=== PATIENT | female | born 1960 | race Caucasian/White ===

== ENCOUNTER → 2017-12-09 07:25 | Outpatient (CLI) | payer OTHER, SELFPAY ==
--- NOTE | 2017-12-09 | DI.US.S_ITS ---
PROCEDURE: US ABDOMEN COMPLETE INDICATIONS: ABDOMINAL PAIN; ELEVATED LFT'S TECHNIQUE: Real-time scanning was performed of the abdominal and retroperitoneal organs, with image documentation. COMPARISON: None. FINDINGS: Liver: Liver is diffusely increased in echogenicity. No focal hepatic abnormalities identified. Normal hepatic size. Gallbladder: 2.6 cm mobile gallstone. No gallbladder wall thickening or pericholecystic fluid. Biliary ducts: Intrahepatic bile ducts are non-dilated. Extrahepatic bile duct caliber measures 7.3 mm. Normal is 6-7 mm or less in diameter, or 10 mm or less post-cholecystectomy. Pancreas: Visualized portions of the pancreas are sonographically normal. Spleen: Spleen is normal in size and homogeneous in echotexture. Kidneys: Kidneys are normal in size and echotexture. Right kidney measures 11.7 cm long; left kidney measures 11.7 cm long. No hydronephrosis or nephrolithiasis. No solid masses. Left renal simple cyst present, largest measure 1.8 cm. Aorta: Visualized aorta is normal in caliber at less than 3 cm. Iliacs: Proximal common iliac arteries are normal in caliber at less than 2.5 cm. IVC: Intrahepatic inferior vena cava is patent. Miscellaneous: No free abdominal fluid. IMPRESSION: 1. Increased hepatic echogenicity noted possibly related to hepatic steatosis but other sources of hepatocellular disease cannot be excluded. Recommend clinical correlation. 2. Cholelithiasis without acute cholecystitis. 3. Simple left renal cysts. Dictated by: Charly JEAN Interpreted: Juan Pineda MD on 12/09/2017 at 9:32 Approved by: Tiffany Mann MD, PhD on 12/09/2017 at 10:52
== END ==
PROVIDERS: Visit Provider Internal Medicine
DX: K80.20 Calculus of gallbladder without cholecystitis without obstruction (principal); N28.1 Cyst of kidney, acquired; R10.9 Unspecified abdominal pain; R79.89 Other specified abnormal findings of blood chemistry
CPT/HCPCS: 76700

== ENCOUNTER → 2017-12-30 08:52 | Outpatient (CLI) | payer OTHER, SELFPAY ==
--- NOTE | 2017-12-30 | DI.NM.S_ITS ---
PROCEDURE: NM HIDA WITH CCK PHARMACEUTICAL: 5.4 mCi Tc-99m mebrofenin IV; 2.1 mcg CCK IV. INDICATIONS: Chronic cholecystitis TECHNIQUE: Following intravenous administration of Tc-99m mebrofenin, sequential anterior abdominal images were obtained. To evaluate the contractile response of the gallbladder in response to Cholecystokinin (CCK), sincalide (0.02 ?g/kg) was administered by slow intravenous infusion approximately 60 minutes after the administration of the radiopharmaceutical. Sequential imaging was continued for 30 minutes after the start of CCK infusion. Gallbladder ejection fraction was calculated. COMPARISON: None. FINDINGS: Biliary scan: There is normal tracer uptake and excretion by the liver. There is normal visualization of the intrahepatic ducts, common bile duct, and gallbladder. There is normal tracer transit into the duodenum. CCK stimulation: There is abnormally low contractile response of the gallbladder to CCK infusion. The calculated gallbladder ejection fraction is 18%; normal values are above 35%. It has been shown that any patient abdominal pain after CCK administration is related to the rate of CCK injection, rather than to any underlying gallbladder disease (Clinical Nuclear Medicine 2012; 37: 63-70. Journal of Nuclear Medicine 2014; 55: 1-9). IMPRESSION: Normal hepatocyte uptake and subsequent excretion of the radioisotope into the bile ducts. Patency of the cystic duct is documented. There is, however, an abnormally reduced gallbladder ejection fraction of only 18% with the lower limits of normal above 35%. Dictated by: Onesimo Kebede M.D. on 12/30/2017 at 13:44 Approved by: Onesimo Kebede M.D. on 12/30/2017 at 13:46
== END ==
PROVIDERS: PCP Internal Medicine; Visit Provider Internal Medicine
DX: K81.1 Chronic cholecystitis (principal)
CPT/HCPCS: 78227; A9537; J2805

== ENCOUNTER → 2018-01-02 09:00 | Outpatient (CLI) | payer OTHER, SELFPAY ==
--- NOTE | 2018-01-02 | DI.MG.S_ITS ---
BILATERAL DIGITAL SCREENING MAMMOGRAM 3D/2D WITH CAD: 01/02/2018 CLINICAL: Routine screening. [facility] There are scattered fibroglandular elements in both breasts. Current study was also evaluated with a Computer Aided Detection (CAD) system. There is an oval mass in the right breast upper outer aspect posterior depth. No other significant masses, calcifications, or other findings are seen in either breast. IMPRESSION: INCOMPLETE: NEEDS ADDITIONAL IMAGING EVALUATION The oval mass in the right breast is indeterminate. Additional views with possible ultrasound are recommended. This exam was interpreted at Station ID: [id number]. NOTE: For mammograms, a report in lay terms will be sent to the patient. Approximately 15% of breast malignancies will not be visualized mammographically. In the management of a palpable breast mass, a negative mammogram must not discourage biopsy of a clinically suspicious lesion. Electronically Signed By: Abiodun condno/margot:01/05/2018 02:12:36 letter sent: Additional Imaging Needed ACR BI-RADS Category 0: Incomplete 3340F
== END ==
PROVIDERS: PCP Internal Medicine; Visit Provider Internal Medicine
DX: Z12.31 Encounter for screening mammogram for malignant neoplasm of breast (principal)
CPT/HCPCS: 77063; 77067

== ENCOUNTER → 2018-01-28 12:47 | Outpatient (CLI) | payer OTHER, SELFPAY ==
--- NOTE | 2018-01-28 | DI.US.S_ITS ---
LIMITED ULTRASOUND OF RIGHT BREAST: 01/28/2018 CLINICAL: Focal right breast pain. Patient returns for additional imaging over a suspected mass in the right breast. Comparison is made to exams dated: 01/28/2018 mammogram, 01/02/2018 mammogram, and 03/02/2013 mammogram - [facility]. Real-time and Doppler ultrasound of the right breast 6 o'clock and 9-12 o'clock regions were performed. Lino scale images of the real-time examination were reviewed. Targeted ultrasound was performed in the region of the patient's reported focal pain and itching in the inferior right breast at 6 o'clock position as indicated by the patient. No underlying breast mass or abnormality is identified. There is a 1.2 x 1.0 x 1.0 cm oval indistinct hypoechoic probable cyst with increased through transmission and no vascularity on Doppler ultrasound located in the right breast at 10 o'clock 8 cm from the nipple. The cyst is poorly seen due to overlying shadowing artifact secondary to the posterior depth location of this probable cyst. There are low level internal echogenic foci within the probable cyst. This appears to correlate with the finding seen on mammography. IMPRESSION: PROBABLY BENIGN 1) No ultrasound findings to explain patient's reported focal pain and itching in the inferior right breast at 6 o'clock position. Recommend clinical follow-up for further evaluation and management of the patient's reported symptoms. 2) There is a 1.2 cm probable complicated cyst in the right breast at 10 o'clock 8 cm from the nipple, which is probably benign. A follow-up mammogram and an ultrasound in 6 months is recommended to demonstrate stability. The patient is advised to monitor her breasts and to return sooner for re-evaluation should she feel anything grow or change. This exam was interpreted at Station ID: [id number]. Electronically Signed By: Abiodun Forrest M.D. ecl/:01/28/2018 16:19:25 letter sent: Followup Recommended Ultrasound BI-RADS: 3 Probably benign
--- NOTE | 2018-01-28 | DI.MG.S_ITS ---
UNILATERAL RIGHT DIGITAL DIAGNOSTIC MAMMOGRAM 3D/2D WITH ADDITIONAL VIEWS: 01/28/2018 CLINICAL: Additional evaluation requested from prior study. Comparison is made to exams dated: 01/02/2018 mammogram and 03/02/2013 mammogram - [facility]. There are scattered fibroglandular elements in right breast. There is a square marker overlying the skin of the inferior right breast at the site of the patient's reported focal pain and itching at the 6 o'clock position middle to posterior depth. There is no underlying mammographic abnormality. Previously noted oval mass in the right breast upper outer aspect posterior depth seen on comparison screening mammogram persists with additional views. The mass is oval, circumscribed, and measures 1.3 cm in greatest diameter. No other significant masses, calcifications, or other findings are seen in the breast. IMPRESSION: INCOMPLETE: NEEDS ADDITIONAL IMAGING EVALUATION 1) No mammographic abnormality to correlate with the site of the patient's reported focal breast pain and itching in the inferior right breast. Targeted diagnostic ultrasound recommended for further evaluation, which will be performed immediately following this exam. 2) Previously noted oval mass in the right breast upper outer aspect posterior depth seen on comparison screening mammogram persists with additional views. Targeted ultrasound recommended, which will be performed immediately following this exam. This exam was interpreted at Station ID: [id number]. NOTE: For mammograms, a report in lay terms will be sent to the patient. Approximately 15% of breast malignancies will not be visualized mammographically. In the management of a palpable breast mass, a negative mammogram must not discourage biopsy of a clinically suspicious lesion. Electronically Signed By: Abiodun Forrest M.D. ecl/:01/28/2018 13:32:54 letter sent: Additional Imaging Needed ACR BI-RADS Category 0: Incomplete 3340F
== END ==
PROVIDERS: PCP Internal Medicine; Visit Provider Internal Medicine
DX: R92.8 Other abnormal and inconclusive findings on diagnostic imaging of breast (principal); N63.11 Unspecified lump in the right breast, upper outer quadrant; N64.4 Mastodynia
CPT/HCPCS: 76642; 77065; G0279

== ENCOUNTER 2018-02-12 09:47 | Day surgery (SDC) | payer OTHER, SELFPAY ==
[2018-01-29 07:48] VITALS: BMI 40.2
[2018-02-12] VITALS (9 sets, daily range): BP systolic 124–163; BP diastolic 72–89; PULSE 90–98; RESP 14–20; TEMP 36.2–37.1; O2SAT 90–96; BMI 39.7
--- NOTE | 2018-02-12 | PATH_ITS ---
[facility] Accession Number: [id number] . 01 Material submitted: . PART A: GALLBLADDER PART B: LIVER BIOPSY . 02 Diagnosis: A. Gallbladder, Cholecystectomy: Chronic cholecystitis with cholelithiasis. 1 benign cystic duct lymph node identified. No evidence of dysplasia or malignancy. . B. Liver, Biopsy: Moderate steatosis, predominantly macrovesicular (approximately 50%) No significant fibrosis, confirmed by trichrome stain. Mild iron deposition in hepatocytes and kupffer cells (grade 1 of 4). No abnormal PAS positive diastase resistant globules in hepatocytes. No evidence of hepatitis or neoplasm. [facility]/02/18/2018 . 02 Comment: B. Clinical correlation is recommended to determine if the liver changes are due to metabolic syndrome, alcohol, or medications. . As part of routine fiberglass quality technician, Dr. Fink also reviewed part B and agrees with the diagnosis. . 02 Electronically signed: . Roseanna Mckeon MD, Pathologist NPI- [id number] . 01 Gross description: . (A) Received in formalin, labeled gallbladder, is an intact gallbladder (length-7.8 cm, diameter-2.6 cm) with torre-pink smooth and shiny serosa and a patent cystic duct. A lymph node (0.8 x 0.7 x 0.5 cm) is identified. The lumen contains green watery bile and one green oblong hard smooth calculus (2.8 x 2.0 x 1.8 cm) with an hermes crystalline cut surface. The mucosa is montgomery-green smooth and flat. The wall is up to 0.1 cm thick. No nodules, masses or lesions are identified. Section code: (A1) cystic duct resection margin and two serial sections from the body; (A2) two longitudinal sections from the fundus; (A3) one bisected lymph node. (B) Received in formalin, labeled liver biopsy, is a piece of montgomery firm hepatic tissue (1.3 x 1.2 x 0.3 cm). The resection margin is inked black. Perpendicularly sectioned and entirely submitted in cassette B1. ([id number]) /[facility] . 02 Microscopic: . A. See diagnosis. B. Fragments of liver parenchyma show moderate steatosis, predominantly macrovesicular (approximately 50%), in a zone 3 distribution. There is minimal lobular lymphocytic inflammation and no definite balloning hepatocytes are identified. Rare Sabrina-Denk Bodies are present. The trichrome stain highlights liver capsule as well as mild portal-central fibrosis; likely due to sampling near capsule. No well defined perivenular/pericellular fibrosis is seen. Mild iron deposition is present in hepatocytes and Kupffer cells. No abnormal PAS positive diastase resistant globules are present in hepatocytes. There is no evidence of a neoplastic cell population. The control stains all showed appropriate reactivity. . 02 Pathologist provided ICD-10: K80.60, K76.0 . 02 CPT . 025722, 099354, 786719, [id number], [id number] Performed at: [address] [facility] [address] [facility], [place], [place] [id number] MD Chadd Burch MD Phone: [phone] Performed at: 02 [facility] [id number] [place] [id number] MD Roseanna Mckeon MD Phone: [phone]
--- NOTE | 2018-02-12 10:35 | PM.PREOP ---
Pre-operative Note Interval Note Pre-op Check: Yes History & Physical Reviewed by Physician and Yes Exam Performed Changes: No
[2018-02-12] MEDS: LACTATED RINGERS 1,000 ML 100 ML IV (10:45)
[2018-02-12] MEDS: CEFOTETAN 2 GM/50 ML PIGGYBACK IV (11:07)
--- NOTE | 2018-02-12 11:32 | SUR.OPER ---
Supine on padded OR bed, head on pillow, arms secured on padded arm boards at <90 degrees abduction, legs uncrossed, safety belt at thigh, tape over blanket over lower legs.
[2018-02-12] MEDS: LACTATED RINGERS 1,000 ML 42 ML IV (11:47)
[2018-02-12] MEDS: BUPIVACAINE 0.5% (PF) VIAL 30 ML INJ (11:49)
--- NOTE | 2018-02-12 13:01 | P.OP_ITS ---
Operative Date/Time/Diagnoses Date of procedure: 02/12/18 Time of procedure: 13:00 Pre-op diagnosis: Cholelithiasis cholecystitis Post-op diagnosis: same (Chronic cholecystitis with cholelithiasis) Procedure & Clinicians Procedure: Laparoscopic cholecystectomy. Liver biopsy for indicated reasons during the operation. Same procedure as scheduled: Yes Indications: Symptomatic gallbladder disease Surgeon: Freedom Barnes Click Yes if Unassisted: Yes Anesthesia Type: General Operative Notes Findings: Chronically inflamed gallbladder encased in fat. Finely nodular liver suspicious for early cirrhosis versus fatty infiltration Closure Type: primary Specimen(s): other (Gallbladder and stone) Implants & Drains: None Estimated Blood Loss (mL): 20 Blood products transfused: none Procedure in detail: The patient was placed supine on the operating room table and underwent general endotracheal anesthesia. She was prepped and draped in the usual fashion. Local anesthetic was infiltrated above the umbilicus and an incision made in the infraumbilical fold. It was carried down to the level of the peritoneum which was opened under direct vision. Stay sutures of 0 Vicryl were placed in the fascia. An Savage cannula was inserted and the abdomen was insufflated. The patient was repositioned and local anesthetic was infiltrated again beneath the right costal margin and 3 small 5 mm ports were inserted. The gallbladder was identified and grasped and elevated. The gallbladder was mostly in tested with in fat. I dissected bluntly away from the end of the gallbladder and identified a ductal structure singular nature going directly to the gallbladder. Three clips were placed across it was divided leaving 2 in the patient. A vascular appearing structure was handled in a similar way. As I began to dissect the gallbladder out of the bit of of the liver I encountered another vascular structure which I had to place clips on before dividing. The gallbladder is then dissected from its bed in the liver. This was a very tedious process due to the large size of the liver and out the fact that it did not have much give. Ultimately the gallbladder is detached and removed in a bag. The right upper quadrant was irrigated and suctioned free of fluid. There is no ongoing bleeding at the gallbladder fossa. I took a biopsy of the liver with my laparoscopic Mets and submitted it. Cautery was used to control the bleeding. The right upper quadrant irrigated suctioned free of fluid. There did not appear to be any bile leak or ongoing bleeding. The ports were all removed. The stay sutures at the umbilicus were tied an additional 2 0 PDS was placed between the of the other to stitches there. The skin is closed in all areas with interrupted or running for 0 pop-off Vicryl sutures and Steri- Strips. Band-aids were applied the patient was awakened and taken to recovery room good condition. Complications: none Condition: stable Disposition: PACU Plan for aftercare: Follow-up in the office
[2018-02-12] MEDS: ONDANSETRON 4 MG/2 ML INJ IV (13:10)
[2018-02-12] MEDS: fentaNYL 100 MCG/2 ML INJ 50 MCG IV ×2 (13:20→13:35)
[2018-02-12] MEDS: HYDROCODONE/ACET 5/325 TABLET 2 TAB PO (13:43)
[2018-02-12] MEDS: METOCLOPRAMIDE 10 MG/2 ML INJ IV (13:47)
[2020-02-24 11:51] VITALS: BMI 40.8
== END 2018-02-12 14:15 | disposition home or self-care (01) ==
PROVIDERS: PCP Internal Medicine; Visit Provider Specialist
PROC: 0FT44ZZ Resection of Gallbladder, Percutaneous Endoscopic Approach (ICD-10-PCS; CPT 47562; principal; 2018-02-12 11:15)
DX: K80.10 Calculus of gallbladder with chronic cholecystitis without obstruction (principal); G47.33 Obstructive sleep apnea (adult) (pediatric); E11.9 Type 2 diabetes mellitus without complications; J45.998 Other asthma; Z79.4 Long term (current) use of insulin; K76.0 Fatty (change of) liver, not elsewhere classified
CPT/HCPCS: 47379; 47562; J0330; J2405; J2704; J2765; J3010

== ENCOUNTER → 2018-02-25 15:40 | Outpatient (CLI) | payer OTHER, SELFPAY ==
--- NOTE | 2018-02-25 15:42 | DI.RAD.S_ITS ---
PROCEDURE: XR KNEE RT 3V INDICATIONS: RIGHT KNEE PAIN TECHNIQUE: 3 views of the knee were acquired. COMPARISON: None. FINDINGS: Bones: No fractures or dislocations. No suspicious bony lesions. Scattered degenerative spurring. Severe narrowing of the lateral joint space. Soft tissues: Small joint effusion. No suspicious soft tissue calcifications. IMPRESSION: Severe right knee joint degeneration. Small joint effusion. Dictated by: Errol Stuart M.D. on 02/25/2018 at 17:54 Approved by: Errol Stuart M.D. on 02/25/2018 at 17:55
--- NOTE | 2018-02-25 15:42 | DI.RAD.S_ITS ---
PROCEDURE: XR KNEE LT 3V INDICATIONS: KNEE PAIN TECHNIQUE: 3 -views of the knee were acquired. COMPARISON: None. FINDINGS: Bones: No fractures or dislocations. No suspicious bony lesions. Mild lateral patellar tilt. Diffuse degenerative spurring. Mild narrowing of the medial joint space. Soft tissues: No joint effusion. No suspicious soft tissue calcifications. IMPRESSION: Mild left knee joint degeneration. Dictated by: Errol Stuart M.D. on 02/25/2018 at 17:56 Approved by: Errol Stuart M.D. on 02/25/2018 at 17:57
== END ==
PROVIDERS: PCP Internal Medicine; Visit Provider Internal Medicine
DX: M25.561 Pain in right knee (principal); M25.562 Pain in left knee; M17.0 Bilateral primary osteoarthritis of knee; M25.461 Effusion, right knee
CPT/HCPCS: 73562

== ENCOUNTER 2018-07-23 12:48 | Day surgery (SDC) | payer OTHER, SELFPAY ==
[2018-07-17 13:18] VITALS: BMI 40.1
[2018-07-23] VITALS (9 sets, daily range): BP systolic 99–146; BP diastolic 48–87; PULSE 77–93; RESP 10–15; TEMP 36.4–36.7; O2SAT 91–99; BMI 40.1
[2018-07-23] MEDS: LACTATED RINGERS 1,000 ML 42 ML IV (13:30)
--- NOTE | 2018-07-23 15:24 | DI.RAD.S_ITS ---
PROCEDURE: XR KNEE RT 1TO2V INDICATIONS: postoperative right knee TECHNIQUE: 2 view(s) of the knee acquired. COMPARISON: [facility], CR, XR KNEE RT 3V, 02/25/2018, 15:51. FINDINGS: Bones: Patient is status post knee joint arthroplasty. Hardware components are in expected positions. Visualized bony structures are intact. Soft tissues: Overlying postoperative changes are noted. IMPRESSION: Expected postoperative appearance Dictated by: Errol Stuart M.D. on 07/23/2018 at 19:23 Approved by: Errol Stuart M.D. on 07/23/2018 at 19:24
[2018-07-23] MEDS: ACETAMINOPHEN 325 MG TABLET 975 MG PO (15:30)
[2018-07-23] MEDS: PREGABALIN 75 MG CAPSULE PO (15:30)
[2018-07-23] MEDS: DEXTROSE 5% WATER 1,000 ML 500 ML IV (15:46)
--- NOTE | 2018-07-23 15:46 | SUR.PREOP ---
Addendum entered by Kathya Baugh R.N. 07/23/18 15:49: Patient is awake, oriented, visiting with friend. Stated that Maybe my headache will go away with the glucose. Skin doesn't appear diaphoretic. Resp unlabored. Original Note: Glucose 76, patient states that she is beginning to feel a little diaphoretic and light-headed; requested sugar. Dr. Betts informed, Order obtained, IV fluids hung per order.
--- NOTE | 2018-07-23 17:12 | SUR.PREOP ---
1700 Patient states that she feels much better. Glucose 144; Dr. Betts informed.
--- NOTE | 2018-07-23 17:18 | PM.PREOP ---
Pre-operative Note Interval Note History & Physical reviewed/Exam performed by Physician: Yes Changes to H&P: No
--- NOTE | 2018-07-23 17:23 | SUR.PREOP ---
1630 500cc bolus of D5 given ,pt feeling better, headache better, pt waiting with friend for surgery
[2018-07-23] MEDS: CEFAZOLIN 2 GM/100 ML FROZ.PIGGY IV (17:25)
--- NOTE | 2018-07-23 17:51 | SUR.OPER ---
Supine on padded OR bed. Pillow under head, arms secured on padded armboards <90 degree abduction. Safety belt across torso. Non-operative leg secured with tape over blanket over lower leg. Operative leg secured in DeMayo/Quentin positioner. Foam padded brace at thigh of operative leg.
[2018-07-23] MEDS: BUPIVACAINE 0.5% W/ EPI (PF) 20 ML, BUPIVACAINE LIPOSOME 266 MG, SODIUM CHLORIDE 0.9% 2... INJ (17:56)
[2018-07-23] MEDS: LIDOCAINE 1% W/EPI INJ 20 ML INJ (17:57)
[2018-07-23] MEDS: BUPIVACAINE 0.5% W/ EPI (PF) 10 ML, TRANEXAMIC ACID 1,000 MG, SODIUM CHLORIDE 0.9% 20 ML INJ (17:58)
--- NOTE | 2018-07-23 18:31 | PM.OP.1 ---
Operative Date/Time/Diagnoses Date of procedure: 07/23/18 Time of procedure: 18:32 Pre-op diagnosis: Medial compartment osteoarthritis right knee Post-op diagnosis: same Procedure & Clinicians Procedure: Right knee medial compartment arthroplasty Same procedure as scheduled: Yes Indications: The patient presents today for right medial compartment arthroplasty after failure of conservative treatment. The nature of the procedure including the risks and benefits, alternatives, postoperative course and expected outcome were discussed and all questions answered. Consent was obtained. Operative site confirmed and marked. Surgeon: Chadd Zapata Requirements Engineer: Terence Jamil Anesthesia Type: General and Local Operative Notes Findings: Severe medial compartment osteoarthritis. Closure Type: primary Specimen(s): none sent Prosthetic devices, grafts, tissues, transplants, or devices: Mcneil and Nephew Journey 3. Femoral component, ZUK 2 Tibial component and 9 mm polyethylene spacer. Applied: catheter Estimated Blood Loss (mL): 25 Blood products transfused: none Tourniquet time (min): 45 Procedure in detail: The patient was taken to the operative suite and placed under general anesthesia. The patient received prophylactic antibiotics 1 g of IV tranexamic acid prior to surgery. The lateral aspect of the leg was prepped and the knee injected with 20 mL of 1% lidocaine with epinephrine. The leg was prepped and draped in usual sterile fashion. The leg was exsanguinated with an Esmarch dressing and the tourniquet raised to 250 torr. A 10 cm medial parapatellar incision and arthrotomy was then made. The anterior aspect of the fat pad and medial meniscus was resected. A small amount of anterior tibial boss was resected with a oscillating saw. The knee was then extended and the alignment guide placed. The distal femoral and proximal tibial cutting guides were then pinned into place. The distal femoral cut was made in extension. The proximal tibial cut was made in flexion. All remaining meniscus was excised. Gaps were checked with blocks. Soft tissues were then injected with a combination of 40 mL of quarter percent Marcaine with epinephrine, 20 mL of Exparel. The femur was sized and the appropriate Mcneil and Nephew Journey cutting guide placed. The peg holes were drilled and chamfer cuts made. Next the tibia was sized and drilled. Trial components were then placed. The knee had good confucianist of soft tissue tension without over correction. Range of motion was full. The trial components were removed. The knee was cleansed with Pulsavac irrigation and dried. The components were then cemented with high viscosity vacuum mixed bone cement. The knee was held in extension until the cement had adequately cured. The knee was then irrigated and inspected for any further debris. The extensor mechanism was closed at 90? of flexion with a few interrupted #1 Vicryl sutures and a running O V-LOC suture. The knee was then filled with 50 mL of solution containing 1 g of tranexamic acid and 10 mL of 0.5% Marcaine. The subcutaneous tissue was closed with 2-0 Vicryl. The skin was closed with a running 3 0 V-LOC suture and surgical adhesive. An Aquacel dressing was applied. The leg was then wrapped with an [place] which will be kept on for the first 24 hours. The patient tolerated the procedure well and was returned to recovery room in good condition. Complications: none Condition: stable Disposition: same day surgery Plan for aftercare: Discharged to home. Weightbearing as tolerated. Follow up in 2 weeks.
[2018-07-23] MEDS: fentaNYL 100 MCG/2 ML INJ 50 MCG IV ×2 (19:02→19:16)
[2018-07-23] MEDS: OXYCODONE/ACETAMINOPHEN 5/325 TABLET 1 TAB PO ×2 (19:21→19:59)
--- NOTE | 2018-07-23 19:23 | SUR.PHASEI ---
Patient awake/oriented; friend to bedside. Taking PO food prior to PO rx. States that her breathing feels unrestricted.
== END 2018-07-23 20:01 | disposition home or self-care (01) ==
PROVIDERS: PCP Internal Medicine; Visit Provider Orthopaedic Surgery
PROC: (CPT 27446; principal; 2018-07-23 15:00)
DX: M17.11 Unilateral primary osteoarthritis, right knee (principal); G47.30 Sleep apnea, unspecified; I10 Essential (primary) hypertension; E78.5 Hyperlipidemia, unspecified; E11.9 Type 2 diabetes mellitus without complications; F32.9 Major depressive disorder, single episode, unspecified; Z79.4 Long term (current) use of insulin
CPT/HCPCS: 27447; 73560; C1776; C9290; J0690; J1170; J2250; J2405; J2704; J3010

== ENCOUNTER → 2018-10-10 16:48 | Outpatient (CLI) | payer OTHER, SELFPAY ==
--- NOTE | 2018-10-10 | DI.MRI.S_ITS ---
PROCEDURE: MR KNEE LT WO CON INDICATIONS: Unilateral primary osteoarthritis, left knee TECHNIQUE: Noncontrast sagittal PD fast spin echo and T2 fast spin echo with fat saturation, sagittal 3-D FLASH with fat saturation; coronal T1 spin echo and PD fast spin echo with fat saturation, and axial PD fast spin echo with fat saturation through the knee. COMPARISON: [facility], MR, KNEE WITHOUT CONTRAST, 05/15/2012, 14:41. FINDINGS: Image quality: Excellent. Menisci: The medial and lateral menisci demonstrate normal morphology and internal signal. The meniscal root ligaments appear intact. Cruciate ligaments: The anterior and posterior cruciate ligaments appear intact. Medial structures: Low-grade proximal MCL sprain near its femoral insertion is seen.. The posterior oblique ligament, semimembranosus tendon insertions, oblique popliteal ligament, and meniscocapsular junction appear intact. Visualized portions of the pes anserinus tendons appear normal. No abnormal bursal fluid. Lateral structures: The lateral collateral ligament, long and short heads of the biceps femoris tendon appear intact. The popliteus tendon appears normal; the popliteofibular ligament appears intact. The posterosuperior and anteroinferior popliteomeniscal fascicles appear intact. The arcuate and fabellofibular ligaments appear intact, on either side of the lateral inferior geniculate artery. Iliotibial band appears normal. Anterior structures: The quadriceps and patellar tendons appear intact. Patellar alignment is normal. No femoral trochlear dysplasia or ventral trochlear prominence. No edema in the infrapatellar fat pad. Bones and cartilage: Moderate osteophytic changes in medial femorotibial compartment is seen with near complete loss of joint space, significant thinning of articulating cartilages, subchondral sclerosis and edema as well as marginal osteophyte formation. Low-grade chondromalacia and mild joint space narrowing and lateral femoral tibial compartment is seen. Chondromalacia patella involving the lateral facet of patella cartilage is seen. No fracture or dislocation. There is cartilage defect involving the posterior aspect of lateral femoral condyle with underlying 5 x 6 mm area of subchondral cystic structure and surrounding edema suggestive of a small osteochondral lesion. Suggestion of tiny 2 mm osteochondral lesion is seen in posterior aspect of medial femoral condyle. Joint space: There is small knee joint fluid. No Mazariegos's cyst. Normal appearing synovial plicae are incidentally noted. IMPRESSION: 1. No evidence of meniscal tear is seen on the current study. Cruciate ligaments are intact. 2. Moderate medial femoral tibial compartment osteoarthritis and mild lateral femoral tibial compartment osteoarthritis. Low-grade chondromalacia involving the lateral facet of patella cartilage. Small osteochondral lesion involving the posterior aspect of lateral femoral condyle. Tiny osteochondral lesion in posterior aspect of medial femoral condyle. 3. Low-grade proximal MCL sprain. Dictated by: Juan Pineda M.D. on 10/13/2018 at 8:24 Approved by: Juan Pineda M.D. on 10/13/2018 at 8:30
== END ==
PROVIDERS: PCP Internal Medicine; Visit Provider Orthopaedic Surgery
DX: M17.12 Unilateral primary osteoarthritis, left knee (principal); M22.42 Chondromalacia patellae, left knee; S83.412A Sprain of medial collateral ligament of left knee, initial encounter
CPT/HCPCS: 73721

== ENCOUNTER → 2018-11-05 14:00 | Outpatient (CLI) | payer OTHER, SELFPAY ==
--- NOTE | 2018-11-05 | DI.MG.S_ITS ---
BILATERAL DIGITAL DIAGNOSTIC MAMMOGRAM 3D/2D SHORT-TERM FOLLOW-UP: 11/05/2018 CLINICAL: Patient returns for 6 month follow up of right breast, due for bilateral exam. Comparison is made to exams dated: 01/28/2018 mammogram, 01/02/2018 mammogram, and 03/02/2013 mammogram - [facility]. There are scattered fibroglandular elements in both breasts. There is a stable mass in the right breast at 11 o'clock middle depth. No other significant masses, calcifications, or other findings are seen in either breast. IMPRESSION: INCOMPLETE: NEEDS ADDITIONAL IMAGING EVALUATION The stable mass in the right breast is indeterminate. A targeted ultrasound of the right breast is recommended and will be performed immediately following this exam. This exam was interpreted at Station ID: [id number]. NOTE: For mammograms, a report in lay terms will be sent to the patient. Approximately 15% of breast malignancies will not be visualized mammographically. In the management of a palpable breast mass, a negative mammogram must not discourage biopsy of a clinically suspicious lesion. Electronically Signed By: Amanda Dowling M.D. lk/:11/05/2018 14:56:30 letter sent: Additional Imaging Needed ACR BI-RADS Category 0: Incomplete [id number]
--- NOTE | 2018-11-05 | DI.US.S_ITS ---
ULTRASOUND OF RIGHT BREAST: 11/05/2018 CLINICAL: Patient returns for a 6 month follow up of the right breast. Comparison is made to exams dated: 11/05/2018 mammogram, 01/28/2018 ultrasound, 01/28/2018 mammogram, 01/02/2018 mammogram, and 03/02/2013 mammogram - Located [facility]. Color flow ultrasound of the right breast was performed on the areas of interest. Lino scale images of the real-time examination were reviewed. There is 1.1 cm x 1 cm x 1 cm round cyst in the right breast at 10 o'clock middle depth. This round cyst displays internal echoes and posterior acoustic enhancement. This abnormality is slightly decreased in size. IMPRESSION: PROBABLY BENIGN The 1.1 cm x 1 cm x 1 cm round cyst in the right breast likely represents a complicated cyst and is probably benign. A follow-up right mammogram and an ultrasound in 6 months is recommended to demonstrate stability. This exam was interpreted at Station ID: [id number]. Electronically Signed By: Amanda caldera/:11/05/2018 16:48:52 letter sent: Followup Recommended Ultrasound BI-RADS: 3 Probably benign
== END ==
PROVIDERS: PCP Internal Medicine; Visit Provider Internal Medicine
DX: N60.01 Solitary cyst of right breast (principal)
CPT/HCPCS: 76642; 77066; G0279

== ENCOUNTER 2018-12-10 09:11 | Inpatient (IN) | payer OTHER, SELFPAY ==
[2018-11-26 08:37] VITALS: BMI 38.5
[2018-12-10] VITALS (12 sets, daily range): BP systolic 72–142; BP diastolic 38–81; PULSE 65–80; RESP 9–18; TEMP 35.8–37; O2SAT 1–100; BMI 39.1
--- NOTE | 2018-12-10 06:54 | DI.RAD.S_ITS ---
PROCEDURE: XR KNEE LT 1TO2V INDICATIONS: post op TKA TECHNIQUE: 2 view(s) of the knee acquired. COMPARISON: [facility], CR, XR KNEE RT 1TO2V, 07/23/2018, 19:07. FINDINGS: Bones: Patient is status post knee joint arthroplasty. Hardware components are in expected positions. Visualized bony structures are intact. Soft tissues: Overlying postoperative changes are noted. IMPRESSION: Post left total knee arthroplasty changes with anatomic left knee alignment. Dictated by: Juan Pineda M.D. on 12/10/2018 at 15:53 Approved by: Juan Pineda M.D. on 12/10/2018 at 15:53
[2018-12-10] MEDS: LACTATED RINGERS 1,000 ML 42 ML IV ×2 (10:06→12:58)
[2018-12-10] MEDS: ACETAMINOPHEN 325 MG TABLET 975 MG PO ×3 (10:09→20:18)
[2018-12-10] MEDS: PREGABALIN 75 MG CAPSULE PO (10:09)
--- NOTE | 2018-12-10 10:13 | PM.PREOP ---
Pre-operative Note Interval Note History & Physical reviewed/Exam performed by Physician: Yes Changes to H&P: No
--- NOTE | 2018-12-10 10:17 | PM.OP.1 ---
Operative Date/Time/Diagnoses Date of procedure: 12/10/18 Time of procedure: 13:00 Pre-op diagnosis: Left knee osteoarthritis Post-op diagnosis: same Procedure & Clinicians Procedure: Left total knee replacement Same procedure as scheduled: Yes Indications: The patient presents today for total knee arthroplasty after failure of conservative treatment. The nature of the procedure including the risks and benefits, alternatives, postoperative course and expected outcome were discussed and all questions answered. Consent was obtained. Operative site confirmed and marked. Surgeon: Chadd Zapata [employer] Feeder: Terence Jamil Anesthesia Type: General, Spinal and Local Operative Notes Findings: Right knee osteoarthritis with varus alignment. Closure Type: primary Specimen(s): none sent Prosthetic devices, grafts, tissues, transplants, or devices: [employer] Alfa BCS: 4 femoral component, 3 tibial component, 9 mm BCS polyethylene tray and 32 x 9 mm round patella Applied: implant(s) Estimated Blood Loss (mL): 15 Blood products transfused: none Tourniquet time (min): 56 Procedure in detail: The patient was taken to the operative suite and placed under general and spinal anesthesia. The patient was given prophylactic antibiotics prior to surgery. The patient was also given tranexamic acid, 1 g, just prior to surgery for postoperative hemostasis. The lateral knee was prepped and the joint injected with 20 mL of 1% Lidocaine with epinephrine. The knee was then prepped and draped in usual sterile fashion. The leg was exsanguinated with an Esmarch dressing and the tourniquet raised to 250 torr. A 15 cm anterior incision was made. Next a medial trivector arthrotomy was made. The extensor mechanism was marked to ensure accurate repair. Initial exposing dissection was carried out medially and laterally. The knee was then extended and the patellar thickness was measured and a cut made removing approximately 9 mm of bone. The patella was then sized and drilled. Some excess lateral bone was excised and the patellofemoral ligament released. The knee was then flexed and the intramedullary femoral guide marcelino placed. The distal femoral cut was made in 6 ? of valgus at the + 0 position. The femoral size was measured and the appropriate cutting block was then placed and the anterior, posterior and chamfer cuts made. The intramedullary tibial alignment marcelino was then placed. The guide was set to remove approximately 9 mm from the less affected lateral side. The proximal tibial cut was then made with an oscillating saw. All meniscus and bony debris was then removed. Posterior femoral osteophytes removed with a curved osteotome. Flexion extension gaps were checked. The knee was slightly tight medially. This was balanced by release of the MCL with an 18 gauge needle. The soft tissues were then injected with a combination of 20 mL of half percent Marcaine with epinephrine and 20 mL of Exparel. The trial components were then placed. The knee went into full extension and flexion beyond 120?. There was excellent medial-lateral balance throughout motion. Patellar tracking was excellent. The trial components were removed and the knee was cleansed with Pulsavac irrigation and dried. The final components were cemented with high viscosity vacuum mixed bone cement with antibiotics. The joint was filled with a dilute Betadine solution. The knee was held in extension and the patellar clamped until the cement was fully cured. The knee was then irrigated. The extensor mechanism was closed with 5 interrupted #1 Vicryl sutures and a running Quill suture at 90 degrees of flexion. The joint was then injected with a combination of 1 g of tranexamic acid and 20 mL of quarter percent Marcaine with epinephrine. The subcutaneous tissue was closed with 2 0 Vicryl. The skin was closed with karel and surgical adhesive. An Aquacel dressing and [place] wrap were then applied. The patient tolerated the procedure well and was returned to recovery room in good condition. Post-operative Condition: stable Disposition: PACU Plan for aftercare: [facility] protocol for total knee arthroplasty.
[2018-12-10] MEDS: MELOXICAM 7.5 MG TABLET 15 MG PO (10:26)
[2018-12-10] MEDS: CEFAZOLIN 2 GM/100 ML FROZ.PIGGY IV ×2 (11:30→20:22)
[2018-12-10] MEDS: LIDOCAINE 1% W/EPI 20 ML INJ (11:40)
[2018-12-10] MEDS: BUPIVACAINE 0.25% W/ EPI (PF) 40 ML, BUPIVACAINE LIPOSOME 266 MG, SODIUM CHLORIDE 0.9% ... INJ (12:07)
[2018-12-10] MEDS: BUPIVACAINE 0.25% W/ EPI (PF) 20 ML, TRANEXAMIC ACID 1,000 MG, SODIUM CHLORIDE 0.9% 10 ML INJ (12:08)
--- NOTE | 2018-12-10 13:32 | SUR.PHASEI ---
Pt to pacu, awake/drowsy, denies pain/nausea. HOB elevated by Dr. Malik, ice chips given.
--- NOTE | 2018-12-10 14:05 | SUR.PHASEI ---
1354 to room 216, bed down and locked, call light within reach. pt. alert and oriented, able to bend knees, no pain/nausea. Put on o2 at 2LNP. Spouse to the room. SCDs on. Took pts CPAP, cruthes, and backpack/shoes to the room. She immediately took her phone out of her backpack and plans to call her sister.
--- NOTE | 2018-12-10 14:22 | PC.NURSE ---
1400 Pt arrived from PACU via bed. Pt awake, alert & oriented x 4. Pt on 1L o2, sasts 95-97 %. Pt has a sl to r hand. [place] wrap to left knee, ice to site. put on ble SCDs. Family at bedside 1415 IVF infusing now. Pt taking in sips ice water. denies pain.
[2018-12-10] MEDS: LACTATED RINGERS 1,000 ML 125 ML IV ×2 (14:30→22:24)
--- NOTE | 2018-12-10 15:39 | PT.IIE ---
Current Diagnoses Bilateral primary osteoarthritis of knee (12/10/18) Surgery Performed Operation Date: 12/10/18 11:45 Actual Procedures p Total Knee Arthroplasty(Left) - Chadd Zapata MD Surgical History (Last Updated 11/26/18 @ 09:25 by Hanna Lee, RN) History of colonoscopy (Acute) History of liver biopsy (Acute 02/12/18) Hx of arthroscopic knee surgery (Acute) Hx of cholecystectomy (Acute 02/12/18) Hx of tonsillectomy (Acute) S/P right unicompartmental knee replacement (Acute 07/23/18) S/P rotator cuff repair (Acute) Medical History (Last Updated 11/26/18 @ 09:18 by Hanna Lee, BRIDGETT) 2nd degree AV block (Acute) Anxiety (Acute) Arthritis (Acute) Asthma (Acute) Blindness and low vision (Chronic) Chest pain (Acute) Cholecystitis (Acute) Cholelithiasis (Acute) Chronic venous stasis (Acute) Depression (Chronic) Diverticulosis (Acute) Edema (Acute) Elevated LFTs (Acute) Epigastric pain (Acute) Fibromyalgia (Acute) GERD (gastroesophageal reflux disease) (Acute) Hearing impaired (Acute) History of migraine (Acute) History of UTI (Acute) Hyperlipidemia (Acute) Hypertension (Acute) Kidney stones (Acute ~08/2014) Knee pain, right (Acute) Long QT syndrome (Acute ~2019) Macular degeneration (Acute) Migraines (Chronic) Multiple gastric polyps (Acute) HARRIS (nonalcoholic steatohepatitis) (Acute) Obese (Acute) Optic neuritis (Chronic) Peptic ulcer disease (Acute) Peripheral neuropathy (Acute) PTSD (post-traumatic stress disorder) (Chronic) Renal insufficiency (Acute) Seizures (Acute) Sleep apnea with use of continuous positive airway pressure (CPAP) (Acute) Type 2 diabetes mellitus (Chronic) Physical Therapy Inpatient Evaluation/Re-Eval M1 PT/OT-IP Prior Functional Status Start: 12/10/18 18:00 Freq: NEEDED Status: Active Protocol: Document 12/10/18 15:39 AB (Rec: 12/10/18 18:15 AB [id number]) Medical Review Prior Functional Status Medical History Reviewed Yes Communication able to make needs known Mobility and Gait pt stated that she is independent with all mobilities and ambulation without AD Social History Household Members children Living Arrangements Mobile home Number of Floors (Floors) One Floor Number of Stairs To Enter/Railing? 4 steps to enter with L rail ascending Home Environment High Toilet,Tub/Shower Home Equipment Straight Cane,Crutches,Hand Held Shower Employment Status Retired Additional Social History Comment pt stated that her son is off work for 4 days to assist her and a friend lives close by that will assist when needed. M2 PT-IP Current Condition Start: 12/10/18 18:00 Freq: NEEDED Status: Active Protocol: Document 12/10/18 15:39 AB (Rec: 12/10/18 18:15 AB [id number]) Physical Therapy Current Condition Current Condition Evaluation Date 12/10/18 Treatment Diagnosis s/p L TKA; difficulty in walking Onset Date 12/10/18 Weight Bearing Status Weight Bearing Status Weight Bear as Tolerated M3 PT-IP Subjective Start: 12/10/18 18:00 Freq: NEEDED Status: Active Protocol: Document 12/10/18 15:39 AB (Rec: 12/10/18 18:15 AB [id number]) Subjective Physical Therapy Visit Type Type Initial Evaluation Visit Start Time 15:39 Visit Stop Time 16:30 Total Visit Minutes 51 Number of COMPRESSED GASES TESTER Visits 0 Physical Therapy Visit Comments Patient Comments pt agreeable to do PT Therapy Pain Assessment Pain When Pain Assessed At Rest Pain Present Pain Present Pain Reported Location left knee Intensity 4 Scale Used increases to 8/10 after mobility Description Burning Pain Management Techniques Apply Cold,Re-positioning, Timing of Activity with Medications M4 PT-IP Mobility and Gait Start: 12/10/18 18:00 Freq: NEEDED Status: Active Protocol: Document 12/10/18 15:39 AB (Rec: 12/10/18 18:15 AB [id number]) PT-Bed Mobility Assessment Supine to Sit Supine to Sit Standby Assistance Sit to Supine Sit to Supine Standby Assistance Scooting Scooting to Edge of Bed Standby Assistance Scooting Up and Down in Bed Standby Assistance PT-Transfer Assessment Sit to and From Stand Sit to and from Stand Contact Guard Assistance,1 Person Assistance,Use of Upper Extremities Equipment Transfer Assistive Device Gait Belt,Axillary Crutches Comments Mobility Comments pt prefers to use her crutches . stated that she has bad shoulders and will not be able to use a FWW and when she uses a FWW, her shoulders tend to dislocate. pt completed supine to sit SBA . was able to sit on EOB SBA. completed sit to stand CGA using bilateral axillary crutches for support. pt ambulated using crutches CGA ~ 200 ft. completed stairs CGA . pt requires cues for directions due to decrease vision. pt has macular degeneration and is legally blind. stated that she has only peripheral vision on R eye. pt ambulated back to the room. requested to go back to bed and c/o increase pain. informed nurse and nurse provided pain meds. positioned pt in bed. ice pack provided. call light and table placed within reach. Gait Assessment Gait Gait Assistance Required: Contact Guard Assist Distance (Feet) 200 Able to Maintain Weight Bearing Status Yes During Gait Assistive Devices Assistive Device Gait Belt,Axillary Crutches Orthotic/Prosthetic Devices or Brace: No Gait Deviations General Gait Pattern Decreased Stride Length, Decreased Feet Clearance Factors Limiting Gait Function Factors Limiting Gait Function Decreased Activity Tolerance, Decreased Strength,Difficulty Following Directions,Limited Range of Motion,Pain,Poor Balance,Poor Safety Awareness Comments Gait Comments pt completed ambulation 200 ft x 2 using bilateral axillary crutches CGA and cues for directions. needs to cue pt with directions for turns due to pt being legally blind. Stair Climbing Assessment Evaluation Level of Assist On Stairs Contact Guard Assistance Devices Stair Climbing Assistive Devices Axillary Crutches,Left Railing Technique/Endurance Stair Climbing Direction Ascend and Descend Stair Climbing Technique Step to Step Number of Steps Climbed 3 Query Text: Stair Climbing Set # Repetitions (reps) 1 PT-Balance Assessment Sitting Balance and Reactions Static Sitting Balance Ability Good Dynamic Sitting Balance Ability Good Standing Balance and Reactions Static Standing Balance Ability Fair Dynamic Standing Balance Ability Fair Device Used crutches M5 PT-IP Objective Assessments Start: 12/10/18 18:00 Freq: NEEDED Status: Active Protocol: Document 12/10/18 15:39 AB (Rec: 12/10/18 18:15 AB [id number]) Orientation Orientation/Cognition Level of Alertness Alert Orientation Name,Age,Birthday,Month,Date, Year,Day of Week,Place, Situation Language Function Ability No Deficits Noted Safety Awareness Understands Safety Issues Memory Description No Deficits Noted Gross Range of Motion Lower Extremity ROM Assessment Left Impaired Impairments L knee flexion: ~ 90 deg Strength Lower Extremity Strength Assessment Left Impaired Hip 4-/5 Knee 3+/5 Coordination Assessment Gross Coordination Gross Coordination WNL Sensation Assessment Sensation Gross Sensation WNL Muscle Tone Muscle Tone WNL Yes M6 PT-IP Treatment Start: 12/10/18 18:00 Freq: NEEDED Status: Active Protocol: Document 12/10/18 15:39 AB (Rec: 12/10/18 18:15 AB [id number]) Physical Therapy Treatment Exercises Exercises Quad Sets,Heel Slides Education Education Provided Precautions,Weight Bearing Status,Post-Op Packet,Safety M7 PT-IP Assessment and Plan Start: 12/10/18 18:00 Freq: NEEDED Status: Active Protocol: Document 12/10/18 15:39 AB (Rec: 12/10/18 18:15 AB [id number]) PT Summary Assessment and Plan Potential Rehabilitation Potential Good Status of Condition at Evaluation Stable Summary Impairments Pain,ROM,Strength,Balance,Bed Mobility,Transfers,Gait, Activity Tolerance Assessment Summary pt requiring CGA with mobility and plans to go home with her son to assist her. pt has decrease vision affecting mobility and most likely will do better in her own home environment with mobility. pt is set up for outpt PT. pt may go home when medically stable. Goals Bed Mobility Goal Independent Transfer Goal Independent,Crutches Gait Goal Independent,Crutches Gait Distance 250 Other Goals up/down 4 steps L rail ascending and use of crutches Days to Meet Goals 5 Frequency of Treatment Frequency Of Treatment Twice a Day Treatment Plan Physical Therapy Treatment Plan Bed Mobility Training,Transfer Training,Gait Training, Therapeutic Exercise,Balance Retraining,Post Op Education, Discharge Planning,Hot or Cold Pack,Neuromuscular Re-ed, Coordination Retraining,Manual Therapy Recommendations To Nursing Amount of Assist Needed 1 Person Assist Discharge Recommendations PT Discharge Recommendations Home with Assistance, Outpatient PT
[2018-12-10] MEDS: GABAPENTIN 300 MG CAPSULE 600 MG PO ×2 (16:28→20:18)
[2018-12-10] MEDS: OXYCODONE IR 5 MG TABLET 10 MG PO ×2 (16:29→20:17)
[2018-12-10] MEDS: hydrOXYzine pamoate 25 MG CAPSULE PO (17:05)
[2018-12-10] MEDS: FUROSEMIDE 40 MG TABLET PO (17:05)
[2018-12-10] MEDS: METFORMIN HCL 500 MG TABLET 1000 MG PO (20:17)
[2018-12-10] MEDS: ATORVASTATIN 20 MG TABLET 80 MG PO (20:17)
[2018-12-10] MEDS: ASPIRIN EC 81 MG TABLET PO (20:17)
[2018-12-10] MEDS: PANTOPRAZOLE 40 MG TABLET PO (20:18)
[2018-12-10] MEDS: ZOLPIDEM 5 MG TABLET 10 MG PO (20:25)
[2018-12-11] MEDS: CEFAZOLIN 2 GM/100 ML FROZ.PIGGY IV (03:09)
[2018-12-11 05:00] VITALS: BP 119/57; PULSE 85; RESP 16; TEMP 36.7; O2SAT 94
[2018-12-11] MEDS: OXYCODONE IR 5 MG TABLET 10 MG PO ×2 (06:08→10:37)
[2018-12-11] MEDS: FUROSEMIDE 40 MG TABLET PO (06:08)
[2018-12-11 07:11] LABS: Hemoglobin 11.9 g/dL (12.0-16.0)
--- NOTE | 2018-12-11 07:35 | PM.DS.1 ---
History of Present Illness History of Present Illness Date Patient Seen: 12/11/18 Time Patient Seen: 07:36 Chief complaint: [id number] Narrative: The patient presents today for total knee arthroplasty after failure of conservative treatment. The nature of the procedure including the risks and benefits, alternatives, postoperative course and expected outcome were discussed and all questions answered. Consent was obtained. Operative site confirmed and marked. Discharge Providers Provider Date of admission: 12/10/18 09:11 Discharge Date: 12/11/18 Primary care physician: Bud Sheridan MD Consults: 12/10/18 14:07 Consult to Discharge Planning Routine Comment: Consult to Physical Therapy Evaluate & Treat Comment: Physician Instructions: postop TKA protocol Consult to Respiratory Therapy Evaluate & Treat Comment: Physician Instructions: Evaluate and treat Discharge provider: Mary Crespo PA-C Summary Hospital Course Discharge Diagnosis: s/p left total knee arthroplasty Sleep apnea with CPAP Renal insufficiency Peripheral neuropathy hands and feet Peptic ulcer Osteoarthritis Asthma Macular degeneration Long QT syndrome with medication Legally blind Hypertension Hyperlipidemia GERD Diabetes type 2 Depression Non-alcoholic steatohepatitis Venous stasis Hospital Course: Kimberly was admitted for a total knee arthroplasty with Dr. Zapata. Hospital course was unremarkable. On postop day 1. Patient was very discharged home. She was eating and voiding without difficulty or assistance. She has worked with physical therapy throughout her stay. Pain was well controlled. Aspirin for DVT prophylaxis. Status at Discharge Functional status at discharge: uses cane/walker Exam Vital Signs (past 8 hours): - 12/11/18 05:00 Temperature 98.1 F Pulse Rate 85 Respiratory Rate 16 Blood Pressure 119/57 L Pulse Oximetry 94 Oxygen Delivery Method Room Air Oxygen Flow Rate 0 Narrative Exam Narrative: Patient lying in bed in NAD. She is alert and oriented X3. Dressing on left knee is CDI. [place] wrap in place. Calves are soft, compressible, nontender bilaterally. Pulses are symmetrical. She was actively dorsiflex and plantar flex. She was not wearing her SCDs. Her pain was well controlled with oxycodone and Tylenol. She does not have oxycodone or vistaril at home and was provided a prescription today. Objective Labs Result Diagrams: 12/11/18 06:30 Labs: Laboratory Results - last 24 hr 12/11/18 06:30 Hgb 11.9 L Hct 35.0 L Discharge Plan Discharge Plan Patient Disposition: Home Discharge Med Rec/Prescriptions Prescriptions: New acetaminophen 325 mg Tablet 975 mg PO TID Qty: 60 RF: 0 aspirin 81 mg Tablet,Delayed Release (Dr/Ec) 81 mg PO BID Qty: 60 RF: 0 hydroxyzine pamoate 25 mg Capsule 25 mg PO Q6HR Qty: 40 RF: 1 oxycodone 5 mg capsule 5 mg PO Q4-6H PRN (Reason: pain) Qty: 50 RF: 0 Continued furosemide 40 MG tablet 40 mg PO BID Qty: 0 RF: 0 benazepril 20 MG tablet 20 mg PO QDAY Qty: 0 RF: 0 zolpidem 10 MG tablet 10 mg PO HSP Qty: 0 RF: 0 aripiprazole [Abilify] 20 MG tablet 20 mg PO QDAY Qty: 0 RF: 0 epinephrine 0.3 MG/0.3 ML auto-injector 0.3 mg IM PRN PRN (Reason: Allergies) Qty: 0 RF: 0 Glucagon Emergency Kit (human) 1 MG kit 1 mg IJ PRN PRN (Reason: Hypoglycemia) Qty: 0 RF: 0 atorvastatin 80 MG tablet 80 mg PO HS Qty: 0 RF: 0 gabapentin [Neurontin] 300 MG capsule 600 mg PO TID Qty: 0 RF: 0 pantoprazole 40 MG tablet,delayed release (DR/EC) 40 mg PO BID Qty: 0 RF: 0 metformin 1,000 mg Tablet 1,000 mg PO BID RF: 0 albuterol sulfate [Ventolin HFA] 90 mcg/actuation Hfa Aerosol Inhaler 2 puff INHALATION Q4H PRN (Reason: Asthma) RF: 0 Toujeo Max U-300 SoloStar 300 unit/mL (3 mL) Insulin Pen 120 unit SUBCUT BEDTIME RF: 0 Centrum Silver 1 tab PO DAILY RF: 0 jaueljhnyi-rsyfautuysllv-tiuv 1 cap PO Q6H PRN (Reason: Headaches) RF: 0 Bydureon 2 mg/0.65 mL Pen Injector 2 mg SUBCUT Q7D RF: 0 potassium chloride 20 mEq Tablet Extended Release 20 meq PO DAILY RF: 0 Follow up/Referrals: Chadd Zapata MD [Physician] - 1 Week Bud Sheridan MD [Primary Care Provider] - Provider Discharge Instructions Diet: Regular Activity: Full weight-bearing. May progress activity as tolerated. Cold/Heat Therapy: Ice the knee for 20 minutes at a time, 3 times a day. Skin/Wound/Dressing Care Report to your healthcare provider any signs of infection, such as:: chills, fever, increased pain, unusual drainage and unusual redness Dressing: Leave dressing in place for at least 7-10 days or until follow-up. Visit Report/Discharge Packet Instructions: DI for Knee Replacement Discharge Data Primary Care Provider: Bud Sheridan VTE Deep Vein Thrombosis/Pulmonary Embolism Present on Admission: No
[2018-12-11 08:45] VITALS: BP 164/86; PULSE 105; RESP 18; TEMP 36.9; O2SAT 96
--- NOTE | 2018-12-11 08:48 | CM.DANOTE ---
DCP: Case received, EMR reviewed and met with patient. Introduced self and role. Was able to meet patient in her room, and retrieve baseline health information and living situation. DCP assessment/template, completed with information currently available. Patient is a 58 year old female who admitted yesterday morning to the care of the orthopedic team. PCP: Dr. Sheridan. Payer: confirmed: [employer]. Patient came to the hospital for a surgical procedure. Patient had a left total knee arthroplasty. Patient has had a history of left knee osteoarthritis. Patient had her surgery yesterday. Met with patient briefly in her room. She was sitting up in her bed. Patient resides in [place] by herself, but she stated that her son, Moiz, will be helping her out. Confirmed with patient that she does not drive, secondary to being visually impaired, but she has a neighbor that lives across the street, that takes her to any appts, errands, shopping, that she needs. Patient does have a cane and walker if needed. Outpatient physical therapy has already been set up. P: Patient has discharge orders, is to be going home today, but this is pending working with physical therapy. Debbie Fu RN/Liner Inserter
[2018-12-11] MEDS: ACETAMINOPHEN 325 MG TABLET 975 MG PO (09:07)
[2018-12-11] MEDS: ARIPiprazole 10 MG TABLET 20 MG PO (09:08)
[2018-12-11] MEDS: BENAZEPRIL 20 MG TABLET PO (09:08)
[2018-12-11] MEDS: GABAPENTIN 300 MG CAPSULE 600 MG PO (09:08)
[2018-12-11] MEDS: ASPIRIN EC 81 MG TABLET PO (09:08)
[2018-12-11] MEDS: POTASSIUM CHLORIDE 20 MEQ TAB PO (09:09)
[2018-12-11] MEDS: PANTOPRAZOLE 40 MG TABLET PO (09:09)
[2018-12-11] MEDS: METFORMIN HCL 500 MG TABLET 1000 MG PO (09:09)
--- NOTE | 2018-12-11 11:18 | PC.NURSE ---
Patient alert and oriented x4. Ready to D/C home with . PT worked with patient then patient educated on follow ups, medications and TKA care, IV removed, patient tolerated well, patient then transferred via wheelchair for discharge.
--- NOTE | 2018-12-11 11:22 | PT.IPTN ---
Current Diagnoses Bilateral primary osteoarthritis of knee (12/10/18) Surgery Performed Operation Date: 12/10/18 11:45 Actual Procedures p Total Knee Arthroplasty(Left) - Chadd Zapata MD Physical Therapy Treatment Note M2 PT-IP Current Condition Start: 12/10/18 18:00 Freq: NEEDED Status: Discharge Protocol: Document 12/10/18 15:39 AB (Rec: 12/10/18 18:15 AB [id number]) Physical Therapy Current Condition Current Condition Evaluation Date 12/10/18 Treatment Diagnosis s/p L TKA; difficulty in walking Onset Date 12/10/18 Weight Bearing Status Weight Bearing Status Weight Bear as Tolerated M3 PT-IP Subjective Start: 12/10/18 18:00 Freq: NEEDED Status: Discharge Protocol: Document 12/11/18 11:08 NFW (Rec: 12/11/18 11:21 NFW [id number]) Subjective Physical Therapy Visit Type Type Treatment Note Visit Start Time 10:40 Visit Stop Time 11:05 Total Visit Minutes 25 Number of OFFICE SERVICE COORDINATOR Visits 0 Physical Therapy Visit Comments Patient Comments Patient and ready for discharge home. M4 PT-IP Mobility and Gait Start: 12/10/18 18:00 Freq: NEEDED Status: Discharge Protocol: Document 12/11/18 11:08 NFW (Rec: 12/11/18 11:21 NFW [email or web address]) PT-Bed Mobility Assessment Rolling Level of Assist Independent Supine to Sit Supine to Sit Independent Sit to Supine Sit to Supine Independent Scooting Scooting to Edge of Bed Independent Scooting Up and Down in Bed Independent PT-Transfer Assessment Sit to and From Stand Sit to and from Stand Independent Equipment Transfer Assistive Device Gait Belt,Axillary Crutches Orthotic/Prosthetic Devices or Brace: No Transfers Transfer Destination Bed,Wheelchair Transfer Technique Stand Step Pivot Transfer Ability Level of Assist Independent Comments Mobility Comments Patient required cuing for proper use of crutches with transitional activities. Once instructed followed through nicely. Patient comfortable and confident with crutches in ambulation and transitional activities. Gait Assessment Gait Gait Assistance Required: Independent Distance (Feet) 500 Able to Maintain Weight Bearing Status Yes During Gait Assistive Devices Assistive Device Gait Belt,Axillary Crutches Orthotic/Prosthetic Devices or Brace: No Gait Deviations General Gait Pattern Within Normal Limits Factors Limiting Gait Function Factors Limiting Gait Function Decreased Activity Tolerance, Limited Range of Motion Comments Gait Comments Patient on occasion would either hike hip or lateral swing of LLE during swing phase of gait pattern. Stressed proper hip and knee flexion and heel to toe progression in ambulation. Stair Climbing Assessment Evaluation Level of Assist On Stairs Standby Assistance Devices Stair Climbing Assistive Devices Axillary Crutches,Left Railing Technique/Endurance Stair Climbing Direction Ascend and Descend Stair Climbing Technique Step to Step Number of Steps Climbed 3 Stair Climbing Set # Repetitions (reps) 2 Comments Stair Climbing Comments Had patient use one crutch under axilla with ascending and descending stairs vs. 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 Patient noted immediate increased stability with that form. M5 PT-IP Objective Assessments Start: 12/10/18 18:00 Freq: NEEDED Status: Discharge Protocol: Document 12/10/18 15:39 AB (Rec: 12/10/18 18:15 AB [id number]) Orientation Orientation/Cognition Level of Alertness Alert Orientation Name,Age,Birthday,Month,Date, Year,Day of Week,Place, Situation Language Function Ability No Deficits Noted Safety Awareness Understands Safety Issues Memory Description No Deficits Noted Gross Range of Motion Lower Extremity ROM Assessment Left Impaired Impairments L knee flexion: ~ 90 deg Strength Lower Extremity Strength Assessment Left Impaired Hip 4-/5 Knee 3+/5 Coordination Assessment Gross Coordination Gross Coordination WNL Sensation Assessment Sensation Gross Sensation WNL Muscle Tone Muscle Tone WNL Yes M6 PT-IP Treatment Start: 12/10/18 18:00 Freq: NEEDED Status: Discharge Protocol: Document 12/11/18 11:08 NFW (Rec: 12/11/18 11:21 NFW [email or web address]) Physical Therapy Treatment Other Treatments Other Treatment Performed Ran through exercises verbally with patient. Also recommended gravity assist flexion of left knee. M7 PT-IP Assessment and Plan Start: 12/10/18 18:00 Freq: NEEDED Status: Discharge Protocol: Document 12/11/18 11:08 NFW (Rec: 12/11/18 11:21 NFW [email or web address]) PT Summary Assessment and Plan Potential Rehabilitation Potential Excellent Status of Condition at Evaluation Stable Summary Impairments ROM,Strength,Coordination,Gait ,Activity Tolerance Progress Towards Goals Safe For Discharge,Goals Met Assessment Summary Patient aware of HEP. Is independent with transitional activities and is safe in ambulation with use of axillary crutches. Pt's present during treatment and understand proper techniques with ambulation and stairclimbing. Frequency of Treatment Frequency Of Treatment Discharge Discharge Recommendations PT Discharge Recommendations Home with Assistance
== END 2018-12-11 11:15 | disposition home or self-care (01) | DRG 470 ==
PROVIDERS: Admitting Provider Orthopaedic Surgery; PCP Internal Medicine; Visit Provider Orthopaedic Surgery
PROC: 0SRD0JZ Replacement of Left Knee Joint with Synthetic Substitute, Open Approach (ICD-10-PCS; CPT 27447; principal; 2018-12-10 11:45)
DX: M17.12 Unilateral primary osteoarthritis, left knee (principal); K75.81 Nonalcoholic steatohepatitis (NASH); G47.33 Obstructive sleep apnea (adult) (pediatric); I10 Essential (primary) hypertension; E78.5 Hyperlipidemia, unspecified; F32.9 Major depressive disorder, single episode, unspecified; E11.42 Type 2 diabetes mellitus with diabetic polyneuropathy; I45.81 Long QT syndrome; Z79.4 Long term (current) use of insulin
CPT/HCPCS: 36415; 73560; 82962; 85014; 85018; 97110; 97116; 97161; C1776; C9290; J0690; J2250; J2405; J2704; J3010

== ENCOUNTER → 2019-03-31 09:34 | Outpatient (CLI) | payer OTHER, SELFPAY ==
[2018-12-10 14:33] VITALS: BMI 39.1
== END ==
PROVIDERS: PCP Internal Medicine; Visit Provider Internal Medicine
DX: Z13.820 Encounter for screening for osteoporosis (principal); Z78.0 Asymptomatic menopausal state; E11.9 Type 2 diabetes mellitus without complications; R29.890 Loss of height
CPT/HCPCS: 77080

== ENCOUNTER → 2019-08-11 13:09 | Outpatient (CLI) | payer OTHER, SELFPAY ==
[2018-12-10 14:33] VITALS: BMI 39.1
--- NOTE | 2019-08-11 13:12 | DI.MG.S_ITS ---
UNILATERAL RIGHT DIGITAL DIAGNOSTIC MAMMOGRAM 3D/2D SHORT-TERM FOLLOW-UP: 08/11/2019 CLINICAL: Short term follow up of the right breast. Comparison is made to exams dated: 11/05/2018 mammogram, 01/28/2018 mammogram, and 01/02/2018 mammogram - [facility]. There are scattered fibroglandular elements in right breast. There is a stable mass in the right breast at 10 o'clock middle depth. This is seen in additional views. No other significant masses or calcifications are seen in the breast. IMPRESSION: INCOMPLETE: NEEDS ADDITIONAL IMAGING EVALUATION The mass in the right breast is stable. An ultrasound is recommended for confirmation. This was performed immediately following this exam. This exam was interpreted at Station ID: [id number]. NOTE: For mammograms, a report in lay terms will be sent to the patient. Approximately 15% of breast malignancies will not be visualized mammographically. In the management of a palpable breast mass, a negative mammogram must not discourage biopsy of a clinically suspicious lesion. Electronically Signed By: Nabial evans/:08/11/2019 14:28:24 ACR BI-RADS Category 0: Incomplete [id number]
--- NOTE | 2019-08-11 13:12 | DI.US.S_ITS ---
LIMITED ULTRASOUND OF RIGHT BREAST: 08/11/2019 CLINICAL: 6 month follow-up of cysts. Comparison is made to exams dated: 11/05/2018 ultrasound, 11/05/2018 mammogram, 01/28/2018 ultrasound, 01/28/2018 mammogram, and 01/02/2018 mammogram - [facility]. Color flow and real-time ultrasound of the right breast 10 o'clock region were performed. Lino scale images of the real-time examination were reviewed. There is a 1.2 cm x 0.9 cm x 1 cm round cyst in the right breast at 10 o'clock middle depth. This round cyst displays posterior acoustic enhancement. No internal echos were appreciated on this study. Color flow imaging demonstrates that there is no vascularity present. This abnormality is not significantly changed. IMPRESSION: BENIGN There is no sonographic evidence of malignancy. The 1.2 cm x 0.9 cm x 1 cm round cyst in the right breast likely represents a simple cyst and is benign. Return to annual mammogram screening schedule is recommended. Findings and recommendations were conveyed to the patient at time of exam. This exam was interpreted at Station ID: [id number]. Electronically Signed By: Nabila evans/:08/11/2019 16:11:49 letter sent: Normal Exam Ultrasound BI-RADS: 2 Benign
== END ==
PROVIDERS: PCP Internal Medicine; Referring Provider Internal Medicine; Visit Provider Internal Medicine
DX: R92.8 Other abnormal and inconclusive findings on diagnostic imaging of breast (principal); N60.01 Solitary cyst of right breast
CPT/HCPCS: 76642; 77065; G0279

== ENCOUNTER → 2019-11-27 08:14 | Outpatient (CLI) | payer OTHER, SELFPAY ==
[2019-11-18 10:19] VITALS: BMI 39.1
[2019-11-29 15:38] LABS: COVID19 Sendout Not Detected (Not Detect)
== END ==
PROVIDERS: PCP Internal Medicine; Visit Provider Physician Assistant
DX: Z11.59 Encounter for screening for other viral diseases (principal)
CPT/HCPCS: 87635

== ENCOUNTER 2019-11-30 05:42 | Inpatient (IN) | payer OTHER, SELFPAY ==
[2018-12-10 14:33] VITALS: BMI 39.1
[2019-11-18 10:19] VITALS: BMI 39.1
[2019-11-20 12:15] VITALS: BP 141/84; PULSE 98; RESP 16; TEMP 36.1; O2SAT 93
[2019-11-26 09:42] VITALS: BMI 40.8
[2019-11-30] VITALS (11 sets, daily range): BP systolic 115–167; BP diastolic 64–87; PULSE 76–105; RESP 16–19; TEMP 36.1–36.8; O2SAT 91–96; BMI 40.8
--- NOTE | 2019-11-30 06:36 | DI.RAD.S_ITS ---
PROCEDURE: XR SHOULDER RT 1V INDICATIONS: post op total shoulder TECHNIQUE: Single-view of the shoulder were acquired. COMPARISON: [facility] KENDALL Maldonado, XR SHOULDER 2+ VIEWS RIGHT, 09/09/2019, 9:09. FINDINGS: Bones: Single view of the right shoulder demonstrates interval placement of a right glenohumeral prosthesis. Alignment appears near-anatomic on this single projection. No definite periprosthetic fractures. Visualized ribs appear intact. Soft tissues: There are overlying postsurgical changes and a surgical drain present. IMPRESSION: 1. Postoperative changes status post right glenohumeral arthroplasty. Dictated by: Chadd Singer M.D. on 11/30/2019 at 10:34 Approved by: Chadd Singer M.D. on 11/30/2019 at 10:37
[2019-11-30] MEDS: LACTATED RINGERS 1,000 ML 42 ML IV (07:09)
[2019-11-30] MEDS: ACETAMINOPHEN 325 MG TABLET 975 MG PO ×3 (07:09→20:04)
[2019-11-30] MEDS: PREGABALIN 75 MG CAPSULE PO (07:09)
--- NOTE | 2019-11-30 07:31 | PM.PREOP ---
Pre-operative Note COVID-19 COVID-19 status: Negative Result date/Date tested (Pos, Neg/Pending): 11/27/19 Interval Note History & Physical reviewed/Exam performed by Physician: Yes Changes to H&P: No
[2019-11-30] MEDS: MIDAZOLAM 2 MG/2 ML VIAL IV (07:37)
--- NOTE | 2019-11-30 07:49 | PM.OP.1 ---
Operative Date/Time/Diagnoses Date of procedure: 11/30/19 Time of procedure: 10:06 Pre-op diagnosis: Right shoulder osteoarthritis Post-op diagnosis: same Procedure & Clinicians Procedure: Right total shoulder Same procedure as scheduled: Yes Indications: The patient has had progressively worsening right shoulder pain with radiographic changes consistent with arthritis. Non-operative management has failed and the patient has requested total shoulder replacement. The risks, benefits and alternatives to surgery were discussed with the patient prior to proceeding. Risks discussed included, but were not limited to, failure to relieve pain, stiffness, infection, nerve damage, deep venous thrombosis, pulmonary embolism, stroke, coma, heart attack, permanent paralysis and , as well as the potential need for eventual revision of the prosthetic. Surgeon: Josias Garcia Assistant Sales Director: Ana Laura Morin Click Yes if Unassisted: No Anesthesia Type: General, Peripheral nerve block and Local Operative Notes Findings: Significant osteoarthritis with sizable inferior humeral osteophyte and [id number] change in the glenohumeral joint. Intact rotator cuff. Closure Type: primary Specimen(s): none sent Prosthetic devices, grafts, tissues, transplants, or devices: Prosthetics used in this procedure were manufactured by the [employer] and included an Altivate short stem total shoulder system with a 12 mm stem, there is a 46 mm all poly pegged E +glenoid, a 46 mm x 16 mm offset humeral head and a neutral humeral neck. Applied: drain(s) and implant(s) Blood products transfused: none Procedure in detail: The patient was seen in the pre-operative area, where the patient identified the right shoulder as the operative site and this was marked with my initials. The patient received pre-operative antibiotics, underwent an interscalene block, and was taken to the operating room and placed on the operative table in the supine position. After satisfactory anesthesia, a full ?time out? was performed. The patient was repositioned in the ?beach chair? position using a dedicated positioner. All pressure points were well padded, and the knees were slightly bent to prevent tension on the sciatic nerves. The right arm was prepared from the fingers to the base of the neck with ChloroPrep in the usual fashion and draped through sterile drapes. An approximately 15 cm incision was created, starting at the clavicle above the coracoid process and extended towards the deltoid insertion. The deltopectoral interval was used to access the shoulder. The cephalic vein was taken medially. A self retaining retractor was placed. The upper centimeter of the pectoralis major tendon was released. The ?three sisters? were identified and cauterized. The axillary nerve was palpated and protected throughout the case. The biceps was released from its groove and tenodesed over the top of the pectoralis major tendon. The subscapularis was released from the lesser tuberosity with a subscapularis peel and tagged for later repair. The shoulder was dislocated and a cutting guide was used for the proximal humeral osteotomy in 30 degrees of retroversion. A starter reamer was used followed by the cylindrical reamers. This continued in larger sizes in till cortical bite was achieved. Sequential broaching was then performed until a line to line fit with the reamer occurred. A proximal humeral protector was then placed. We then removed the self-retaining retractor and placed retractors to access the glenoid. The subscapularis was released with a ?360 degree release? with care being taken to protect the axillary nerve with the inferior portion of this procedure. The remnant of labrum and biceps stump were removed. The appropriate size reamer was chosen with the glenoid sizer, and the guide pin placed. The glenoid was appropriately reamed. The guide for the peripheral holes was used and the center hole enlarged. The trial glenoid was placed with good stability. We then cemented the final implant into place after irrigating the peg holes and drying them with thrombin-soaked Gelfoam. I should note that during preparation of the glenoid, the anterior glenoid retractor damaged the cephalic vein which was ligated. We returned our attention to the humerus, a trial humeral head was applied and a trial reduction performed. Stability was checked with 50% posterior translation with spontaneous reduction, 45? external rotation with the subscapularis held in the repaired position, and 70? internal rotation in the ?scarecrow position?. This was felt to be satisfactory and the appropriate implants were opened. Five holes were drilled along the humeral osteotomy and #2 Ethibond sutures placed for eventual subscapularis repair. The humeral prosthetic was impacted into the humerus. The humeral head was applied when the stem was still slightly proud and impacted to both seat the head and fully seat the stem. The joint was relocated one final time. The joint was irrigated and the subscapularis repaired to the previously placed sutures using Eliot-Sesar sutures. The top of the subscapularis was closed to the leading edge of the supraspinatus with a figure of 8 #2 Ethibond to close the rotator interval. A deep drain was placed and brought out supero-laterally. The deltopectoral interval was closed with interrupted 0 Vicryl. The subcutaneous layer was closed with 3-0 Vicryl, and the skin with a running 3-0 V-Lock suture and SteriStrips. An Aquacel Ag dressing was applied, the patient?s arm was placed in a sling, and the patient was taken to recovery having tolerated the procedure well. Complications: none Post-operative Condition: stable Disposition: PACU Plan for aftercare: The patient will be maintained on a standard total shoulder replacement protocol with passive range of motion limited to 90 degrees forward flexion, 0 degrees external rotation at the side, 0 degrees abduction and internal rotation to the body. The patient will receive aspirin and sequential compression devices for DVT prophylaxis. The patient will be discharged home when safe for the home environment, likely tomorrow.
[2019-11-30] MEDS: CEFAZOLIN 2 GM/100 ML FROZ.PIGGY IV (07:55)
--- NOTE | 2019-11-30 08:25 | SUR.OPER ---
Beach chair with Schlein shoulder positioner. Lower body on padded OR bed. Head in foam padded head cradle, secured with straps. Non-operative arm secured <90 degrees abduction. Pillow under knees. Safety belt at thigh. Cloth tape over blanket over lower legs.
[2019-11-30] MEDS: TRANEXAMIC ACID 1,000 MG VIAL 2000 MG INJ (08:34)
[2019-11-30] MEDS: THROMBIN (RECOMBINANT) 5,000 UNIT VIAL 5000 UNIT TOP (08:35)
[2019-11-30] MEDS: BUPIVACAINE 0.5% W/ EPI (PF) 30 ML VIAL INJ (08:36)
--- NOTE | 2019-11-30 09:33 | SUR.OPER ---
Pt blood sugar checked at 0932, was 94.
[2019-11-30] MEDS: LACTATED RINGERS 1,000 ML 125 ML IV ×2 (10:56→18:46)
[2019-11-30] MEDS: INSULIN ASPART 100 UNIT/ML INSULN PEN SUBCUT (12:14)
[2019-11-30] MEDS: OXYCODONE IR 5 MG TABLET PO (12:49)
--- NOTE | 2019-11-30 13:39 | P.PCN_ITS ---
Procedures Date/Time Date of procedure: 11/30/19 Time of procedure: 07:40 Nerve Block Time out performed: Yes Local anesthetic used: other (15mL 0.5opivacaine, 5mL 2* idocaine) Location of anesthetic used: interscalene Amount of anesthesia used (mL): 20 Nerve blocks: brachial plexus (interscalene) Procedure successful: Yes Patient tolerated procedure: well Complications: none Additional comments: Brachial plexus nerve block for post operative pain management. Risks and benefits discussed, including bleeding, infection, intravascular injection, nerve damage, block failure. Standard ASA monitors, NC O2. Pt supine. Chloroprep site preparation, sterile technique. Brachial plexus identified with US guidance, traced from supraclavicular to interscalene. 1mL 2% lidocaine skin wheal. 22g x 50mm Pajunk advanced with in-plane US guidance to brachial plexus. Negative aspiration. LA injected with intermittent negative aspiration. Good LA spread noted on US. No pain, no paraesthesia. Pt tolerated procedure well. Vital signs stable.
[2019-11-30] MEDS: GABAPENTIN 600 MG TABLET PO (14:07)
--- NOTE | 2019-11-30 14:50 | PT.IIE ---
Current Diagnoses Primary osteoarthritis, right shoulder (11/30/19) Surgery Performed Operation Date: 11/30/19 07:45 Actual Procedures p Total Shoulder Arthroplasty(Right) - Josias Garcia MD Surgical History (Last Updated 11/26/19 @ 09:53 by Hanna Lee, RN) History of arthroplasty of left knee (Acute 12/10/18) History of colonoscopy (Acute) History of liver biopsy (Acute 02/12/18) Hx of arthroscopic knee surgery (Acute) Hx of cholecystectomy (Acute 02/12/18) Hx of tonsillectomy (Acute) S/P right unicompartmental knee replacement (Acute 07/23/18) S/P rotator cuff repair (Acute) Medical History (Last Updated 11/26/18 @ 09:18 by Hanna Lee RN) 2nd degree AV block (Acute) Anxiety (Acute) Arthritis (Acute) Asthma (Acute) Blindness and low vision (Chronic) Chest pain (Acute) Cholecystitis (Acute) Cholelithiasis (Acute) Chronic venous stasis (Acute) Depression (Chronic) Diverticulosis (Acute) Edema (Acute) Elevated LFTs (Acute) Epigastric pain (Acute) Fibromyalgia (Acute) GERD (gastroesophageal reflux disease) (Acute) Hearing impaired (Acute) History of migraine (Acute) History of UTI (Acute) Hyperlipidemia (Acute) Hypertension (Acute) Kidney stones (Acute ~08/2014) Knee pain, right (Acute) Long QT syndrome (Acute ~2019) Macular degeneration (Acute) Migraines (Chronic) Multiple gastric polyps (Acute) HARRIS (nonalcoholic steatohepatitis) (Acute) Obese (Acute) Optic neuritis (Chronic) Peptic ulcer disease (Acute) Peripheral neuropathy (Acute) PTSD (post-traumatic stress disorder) (Chronic) Renal insufficiency (Acute) Seizures (Acute) Sleep apnea with use of continuous positive airway pressure (CPAP) (Acute) Type 2 diabetes mellitus (Chronic) Physical Therapy Inpatient Evaluation/Re-Eval M1 PT/OT-IP Prior Functional Status Start: 11/30/19 12:12 Freq: NEEDED Status: Active Protocol: Document 11/30/19 14:17 AW (Rec: 11/30/19 14:50 AW [email or web address]) Medical Review Prior Functional Status Medical History Reviewed Yes Communication WNL. Pt is an effective verbal communicator. Mobility and Gait Pt uses a long folding cane for all mobility due to vision impairment caused by macular degeneration. She has no vision in the left eye and peripheral vision only in the right eye. She typically holds the cane in her right hand but is able to use it on the left. Activities of Daily Living and IADL's Pt is independent with all ADL 's and has been practicing showering with just her left arm. Social History Household Members children Living Arrangements Mobile home Number of Floors (Floors) One Floor Number of Stairs To Enter/Railing? 4 KATHRYN with left rail ascending . Pt can use the home exterior on the left side descending. Home Environment High Toilet,Tub/Shower Home Equipment Straight Cane,Hand Held Shower ,Long Handled Sponge Additional Social History Comment Pt lives with her son, Moiz, who works full-time and is gone most days [phone]. Pt has many neighbors who have agreed to help her as needed after surgery. M2 PT-IP Current Condition Start: 11/30/19 12:12 Freq: NEEDED Status: Active Protocol: Document 11/30/19 14:17 AW (Rec: 11/30/19 14:50 AW [email or web address]) Physical Therapy Current Condition Current Condition Evaluation Date 11/30/19 Treatment Diagnosis R TSA; dec independence with ADL's; difficulty in walking Onset Date 11/30/19 Precautions Brace sling on for all mobility M3 PT-IP Subjective Start: 11/30/19 12:12 Freq: NEEDED Status: Active Protocol: Document 11/30/19 14:17 AW (Rec: 11/30/19 14:50 AW [email or web address]) Subjective Physical Therapy Visit Type Type Initial Evaluation Visit Start Time 13:45 Visit Stop Time 14:14 Total Visit Minutes 29 Number of LOCKET MAKER Visits 0 Physical Therapy Visit Comments Patient Comments I'd love to get out of bed and go for a walk Therapy Pain Assessment Pain When Pain Assessed During Mobility Pain Present Pain Present Pain Reported Location right shoulder Intensity 2 Scale Used 2/10 at rest; unchanged with mobility Pain Management Techniques Apply Cold,Timing of Activity with Medications M4 PT-IP Mobility and Gait Start: 11/30/19 12:12 Freq: NEEDED Status: Active Protocol: Document 11/30/19 14:17 AW (Rec: 11/30/19 14:50 AW [email or web address]) PT-Bed Mobility Assessment Supine to Sit Supine to Sit Standby Assistance Scooting Scooting to Edge of Bed Standby Assistance PT-Transfer Assessment Sit to and From Stand Sit to and from Stand Standby Assistance Equipment Transfer Assistive Device Gait Belt,Straight Cane Orthotic/Prosthetic Devices or Brace: Yes Transfers Transfer Destination Chair Transfer Ability Level of Assist Standby Assistance Comments Mobility Comments Pt was reclined in the bed as PT arrived. RN reported pt had already used the BSC. With HOB flat, pt completed supine to sit SBA and was able to shift her weight side to side in sitting. She scooted toward EOB and sat with good balance before standing without AD SBA. PT handed the pt her mobility cane and she ambulated to the sink for instruction on sling fitting, donning and doffing. Pt then used her cane in the left hand to ambulate around the nurses station SBA with verbal cues for obstacle navigation due to pt's poor vision. Pt returned to the room and transferred to the chair SBA where she was positioned with call light and all needs in reach. Call light had been modified with gauze over call button for ease of use. Fresh ice pack was applied to the right shoulder and pt was left sitting with pillows under right arm for comfort and support. Gait Assessment Gait Gait Assistance Required: Standby Assistance,Contact Guard Assist Distance (Feet) 220 Assistive Devices Assistive Device Gait Belt,Straight Cane Orthotic/Prosthetic Devices or Brace: Yes Gait Deviations General Gait Pattern Decreased Stride Length, Festinating,Lateral Trunk Lean ,Wide Based Gait Factors Limiting Gait Function Factors Limiting Gait Function Limited Range of Motion,Pain, Poor Balance Comments Gait Comments Pt ambulated safely with folding cane but required CGA and verbal cues to avoid obstacles at waist height and above. Stair Climbing Assessment Evaluation Level of Assist On Stairs Standby Assistance Devices Stair Climbing Assistive Devices Straight Cane,Left Railing Technique/Endurance Stair Climbing Direction Ascend and Descend Stair Climbing Technique Step Over Step Number of Steps Climbed 3 Query Text: Stair Climbing Set # Repetitions (reps) 1 Comments Stair Climbing Comments Pt used left rail ascending and folding cane to safely navigate stairs SBA. PT-Balance Assessment Sitting Balance and Reactions Static Sitting Balance Ability Normal Dynamic Sitting Balance Ability Normal Standing Balance and Reactions Static Standing Balance Ability Good Dynamic Standing Balance Ability Good Device Used folding cane M5 PT-IP Objective Assessments Start: 11/30/19 12:12 Freq: NEEDED Status: Active Protocol: Document 11/30/19 14:17 AW (Rec: 11/30/19 14:50 AW [email or web address]) Orientation Orientation/Cognition Level of Alertness Alert Orientation Name,Day of Week,Place, Situation Language Function Ability No Deficits Noted Safety Awareness Understands Safety Issues Memory Description No Deficits Noted Gross Range of Motion Upper Extremity ROM Assessment Right Impaired Lower Extremity ROM Assessment Within Functional Limits Strength Upper Extremity Strength Assessment Right Impaired Lower Extremity Strength Assessment Within Functional Limits Sensation Assessment Sensation Gross Sensation Right UE Impaired,Right LE Impaired,Left LE Impaired Light Touch Impaired Sensation Description Numbness Comments Sensation Comments Pt has chronic median and ulnar nerve pain distally on the right side. Pt also has peripheral neuropathy affecting bilateral feet in stocking distribution up to mid-calf. Muscle Tone Muscle Tone WNL Yes M6 PT-IP Treatment Start: 11/30/19 12:12 Freq: NEEDED Status: Active Protocol: Document 11/30/19 14:17 AW (Rec: 11/30/19 14:50 AW [email or web address]) Physical Therapy Treatment Education Education Provided Precautions,Safety Brace Education [place],Patient Other Treatments Other Treatment Performed Provided education on role of PT, plan of care, ADL management with RUE in sling, and post-op precautions. M7 PT-IP Assessment and Plan Start: 11/30/19 12:12 Freq: NEEDED Status: Active Protocol: Document 11/30/19 14:17 AW (Rec: 11/30/19 14:50 AW [email or web address]) PT Summary Assessment and Plan Potential Rehabilitation Potential Good Status of Condition at Evaluation Evolving Summary Impairments Pain,ROM,Strength,Sensation, Transfers,Gait Assessment Summary Kimberly is a 59 yo woman with macular degeneration who was seen for PT evaluation on POD0 following R TSA. She uses a folding cane for all mobility at baseline, typically holding it in her right hand. She practiced using the cane in her left hand prior to surgery . On evaluation, she required SBA and occasional CGA for mobility with folding cane held on the left side. Pt will be safe for discharge home with assist from her son and neighbors once medically cleared. PT will see pt for one additional visit in the AM prior to discharge. Goals Bed Mobility Goal Independent Transfer Goal Independent,Minimal Assistance ,Cane Gait Goal Cane Gait Distance 200 Days to Meet Goals 1 Frequency of Treatment Frequency Of Treatment Twice a Day Treatment Plan Physical Therapy Treatment Plan Bed Mobility Training,Transfer Training,Gait Training, Therapeutic Exercise,Balance Retraining,Post Op Education, Discharge Planning,Hot or Cold Pack,Neuromuscular Re-ed Other Recommendations and Next Treatment review precautions, answer pt Focus questions, re-assess as sensation returns to RUE Recommendations To Nursing Amount of Assist Needed Standby Assistance Discharge Recommendations PT Discharge Recommendations Home with Assistance Transportation Needs at Discharge Private Vehicle
[2019-11-30] MEDS: METFORMIN HCL 500 MG TABLET 1000 MG PO (16:13)
[2019-11-30] MEDS: OXYCODONE IR 10 MG TABLET PO ×2 (16:13→20:04)
[2019-11-30] MEDS: HYDROMORPHONE 0.5 MG INJ 0.2 MG IV (18:45)
[2019-11-30] MEDS: DOCUSATE 100 MG CAPSULE PO (20:04)
[2019-11-30] MEDS: NAPROXEN 250 MG TABLET PO (20:05)
[2019-11-30] MEDS: GABAPENTIN 300 MG CAPSULE 900 MG PO (20:05)
[2019-11-30] MEDS: PANTOPRAZOLE 40 MG TABLET PO (20:05)
[2019-11-30] MEDS: ATORVASTATIN 20 MG TABLET 80 MG PO (20:05)
[2019-11-30] MEDS: ASPIRIN EC 81 MG TABLET PO (20:05)
[2019-11-30] MEDS: Insulin Glargine U-300 Conc [Toujeo Max U-300 Solostar] 120 EACH SUBCUT (20:06)
[2019-11-30] MEDS: ZOLPIDEM 5 MG TABLET 10 MG PO (20:58)
[2019-12-01] MEDS: OXYCODONE IR 10 MG TABLET PO ×3 (01:16→10:44)
[2019-12-01 01:26] VITALS: BP 117/61; PULSE 80; RESP 16; TEMP 36.2; O2SAT 95
--- NOTE | 2019-12-01 01:45 | PC.NURSE ---
Addendum entered by Tierra Moraes R.N. 12/01/19 06:01: Complains of 10/10 right shoulder pain stating it really hurts; medicated with Oxycodone. Original Note: Patient is alert and oriented. Breath sounds diminished but CTA with RA sat of 95%. HRR. Denies nausea. BT present and is passing flatus. Denies dysuria, frequency or urgency with urination. Is able to move self in bed and gets out of bed with SBA; steady on feet. Aquacel dressing to right shoulder is CDI; hemovac is intact and compressed. Right arm is in sling. Has good radial pulse and movement of fingers. Does have numbness in fingers of right hand which she states is normal due to carpal tunnel. Does complain of 7/10 dull pain in right shoulder so medicated with Oxycodone. Wearing bilateral calf SCD's. Does have chronic bilateral foot/ankle neuropathy. Fall risk score is moderate; bed alarm is activated.
[2019-12-01 06:16] VITALS: BP 107/60; PULSE 81; RESP 16; TEMP 36.2; O2SAT 91
[2019-12-01 06:42] LABS: Hematocrit 33.9 % (36-46); Hemoglobin 11.4 g/dL (12.0-16.0); Mean Corpuscular HGB Conc 33.7 % (30-36); Mean Corpuscular Hemoglobin 28.2 PG (26-34); Mean Corpuscular Volume 83.8 fL (80-100); Platelet Count 188 X10^3/uL (150-400); Red Blood Cell Count 4.04 X10^6/uL (4.0-5.2); Red Cell Distribution Width 15.3 % (11.6-14.8); White Blood Cell Count 8.1 X10^3/uL (4.5-11.0)
[2019-12-01 07:30] VITALS: BP 141/69; PULSE 86; RESP 15; TEMP 36.2; O2SAT 94
--- NOTE | 2019-12-01 07:51 | PM.DS.1 ---
History of Present Illness History of Present Illness Date Patient Seen: 12/01/19 Time Patient Seen: 07:52 Chief complaint: INPT Narrative: The history and physical is contained in the chart in a previously completed note. Please refer to that note for this information. Discharge Providers Provider Date of admission: 11/30/19 05:42 Discharge Date: 12/01/19 Primary care physician: Bud Sheridan MD Consults: 11/30/19 10:40 Consult to Discharge Planning Routine Comment: Consult to Physical Therapy Evaluate & Treat Comment: Pendulums. PROM 90 FF, 0 ER, 0 abd, IR to body Physician Instructions: Evaluate and Treat Consult to Respiratory Therapy Evaluate & Treat Comment: Physician Instructions: Evaluate and treat Discharge provider: Josias Garcia MD Summary Hospital Course Discharge Diagnosis: 1. Right shoulder osteoarthritis 2. Post hemorrhagic anemia Hospital Course: The patient was admitted to the hospital and taken directly to the operating room on November 30, 2019. She underwent a right total shoulder replacement without complication. On postoperative day 1 she was stable with reasonable pain control and felt to be ready for discharge. Status at Discharge Cognitive/behavioral status at discharge: oriented Functional status at discharge: independent ambulation Overall status at discharge: patient is progressing back to baseline Time Spent with Patient Time spent: Less than 30 minutes Exam Vital Signs (past 8 hours): - 12/01/19 01:26 12/01/19 06:16 Temperature 97.2 F L 97.2 F L Pulse Rate 80 81 Respiratory Rate 16 16 Blood Pressure 117/61 107/60 Pulse Oximetry 95 91 Oxygen Delivery Method Room Air Oxygen Flow Rate 0 Narrative Exam Narrative: Right shoulder wound is dressed with no significant drainage on the bandage. Light touch is intact in the radial, ulnar, median, muscular cutaneous and axillary nerve distributions. She can extend her thumb, abduct her thumb, abduct her fingers and can fire her biceps and deltoid. Objective Labs Result Diagrams: 12/01/19 06:10 Labs: Laboratory Results - last 24 hr 12/01/19 06:10 WBC 8.1 RBC 4.04 Hgb 11.4 L Hct 33.9 L MCV 83.8 MCH 28.2 MCHC 33.7 RDW 15.3 H Plt Count 188 Discharge Assessment & Plan Assessment and Plan Assessment: Stable postoperative day 1 status post right total shoulder replacement. Plan of Treatment: Discharge to home today. Follow up my office in 10-14 days. Prescriptions for oxycodone and Vistaril have been provided on the chart. Instructions have been provided for the use of anti-inflammatories and Tylenol. She will have aspirin 81 mg p.o. b.i.d. for DVT prophylaxis. Discharge Plan Discharge Plan Patient Disposition: Home Discharge orders & Medications Prescriptions: New acetaminophen 325 mg Tablet 975 mg PO TID 30 Days Qty: 270 RF: 0 aspirin 81 mg Tablet,Delayed Release (Dr/Ec) 81 mg PO BID 42 Days Qty: 84 RF: 0 oxycodone 5 mg Tablet 5 mg PO Q4H PRN (Reason: Pain, Moderate (4-6)) Qty: 40 RF: 0 hydroxyzine pamoate 25 mg Capsule 25 mg PO Q6HR PRN (Reason: Spasms) Qty: 30 RF: 0 Continued furosemide 40 MG tablet 40 mg PO BID Qty: 0 RF: 0 benazepril 20 MG tablet 20 mg PO QDAY Qty: 0 RF: 0 zolpidem 10 MG tablet 10 mg PO BEDTIME Qty: 0 RF: 0 aripiprazole [Abilify] 20 MG tablet 5 mg PO QDAY Qty: 0 RF: 0 epinephrine 0.3 MG/0.3 ML auto-injector 0.3 mg IM PRN PRN (Reason: Allergies) Qty: 0 RF: 0 Glucagon Emergency Kit (human) 1 MG kit 1 mg IJ PRN PRN (Reason: Hypoglycemia) Qty: 0 RF: 0 atorvastatin 80 MG tablet 80 mg PO HS Qty: 0 RF: 0 gabapentin [Neurontin] 300 MG capsule 600 mg PO SEEINSTR Qty: 0 RF: 0 pantoprazole 40 MG tablet,delayed release (DR/EC) 40 mg PO BID Qty: 0 RF: 0 metformin 1,000 mg Tablet 1,000 mg PO BID RF: 0 albuterol sulfate [Ventolin HFA] 90 mcg/actuation Hfa Aerosol Inhaler 2 puff INHALATION Q4H PRN (Reason: Asthma) RF: 0 multivitamin Capsule 1 cap PO DAILY Qty: 0 RF: 0 Toujeo Max U-300 SoloStar 300 unit/mL (3 mL) Insulin Pen 120 unit SUBCUT BEDTIME RF: 0 Bydureon 2 mg/0.65 mL Pen Injector 2 mg SUBCUT Q7D RF: 0 diazepam 2 mg Tablet 2 mg PO BID RF: 0 duloxetine 60 mg Capsule,Delayed Release(Dr/Ec) 60 mg PO DAILY RF: 0 naproxen sodium [Aleve] 220 mg Capsule 220 mg PO BID RF: 0 potassium chloride 20 mEq Tablet Extended Release 20 meq PO DAILY RF: 0 Follow up/Referrals: Bud Sheridan MD [Primary Care Provider] - Josias Garcia MD [Physician] - 2 Weeks Discharge Health Status Multidrug resistant organism: No MDRO Diet/Activity/Treatments Diet: Diet as Tolerated and Carb-consistent/Diabetic Activity: You may use your right arm in front of your body below shoulder level. Generally keep the arm in the sling except for hygiene, eating and pendulum exercises. Cold/Heat Therapy: Apply ice to the right shoulder for 15 minutes every hour as needed for pain control. Skin/Wound/Dressing Care Report to your healthcare provider any signs of infection, such as:: chills, fever, night sweats, increased pain, unusual drainage and unusual redness Dressing: Leave the dressing in place until postoperative follow-up. You may shower with the dressing in place. If the central strip of the dressing becomes saturated with either water or blood, please call the office to have it changed. Visit Report/Discharge Packet Instructions: DI for Prescription Opioid Use, DI for Shoulder Replacement Stand Alone Forms: Surgery Discharge Discharge Data Primary Care Provider: Bud Sheridan
[2019-12-01] MEDS: METFORMIN HCL 500 MG TABLET 1000 MG PO (09:10)
[2019-12-01] MEDS: FUROSEMIDE 40 MG TABLET PO (09:10)
[2019-12-01] MEDS: DOCUSATE 100 MG CAPSULE PO (09:11)
[2019-12-01] MEDS: ASPIRIN EC 81 MG TABLET PO (09:11)
[2019-12-01] MEDS: DULOXETINE 30 MG CAPSULE 60 MG PO (09:11)
[2019-12-01] MEDS: NAPROXEN 250 MG TABLET PO (09:11)
[2019-12-01] MEDS: PANTOPRAZOLE 40 MG TABLET PO (09:11)
[2019-12-01] MEDS: POTASSIUM CHLORIDE 20 MEQ TAB PO (09:11)
[2019-12-01] MEDS: ACETAMINOPHEN 325 MG TABLET 975 MG PO (09:12)
[2019-12-01] MEDS: BENAZEPRIL 20 MG TABLET PO (09:12)
[2019-12-01] MEDS: ARIPiprazole 10 MG TABLET 5 MG PO (09:17)
[2019-12-01] MEDS: GABAPENTIN 600 MG TABLET PO (09:22)
--- NOTE | 2019-12-01 09:27 | PT.IPTN ---
Current Diagnoses Primary osteoarthritis, right shoulder (11/30/19) Surgery Performed Operation Date: 11/30/19 07:45 Actual Procedures p Total Shoulder Arthroplasty(Right) - Josias Garcia MD Physical Therapy Treatment Note M2 PT-IP Current Condition Start: 11/30/19 12:12 Freq: NEEDED Status: Discharge Protocol: Document 11/30/19 14:17 AW (Rec: 11/30/19 14:50 AW [email or web address]) Physical Therapy Current Condition Current Condition Evaluation Date 11/30/19 Treatment Diagnosis R TSA; dec independence with ADL's; difficulty in walking Onset Date 11/30/19 Precautions Brace sling on for all mobility M3 PT-IP Subjective Start: 11/30/19 12:12 Freq: NEEDED Status: Discharge Protocol: Document 12/01/19 09:27 AB (Rec: 12/01/19 12:05 AB [email or web address]) Subjective Physical Therapy Visit Type Type Treatment Note Visit Start Time 09:27 Visit Stop Time 09:49 Total Visit Minutes 22 Number of MICROMATIC HONE OPERATOR Visits 0 Physical Therapy Visit Comments Patient Comments pt is agreeable to do PT Therapy Pain Assessment Pain When Pain Assessed At Rest Pain Present Pain Present Pain Reported Location right shoulder Intensity 2 Scale Used Numeric (0 - 10) Pain Management Techniques Modification of Treatment,Re- positioning M4 PT-IP Mobility and Gait Start: 11/30/19 12:12 Freq: NEEDED Status: Discharge Protocol: Document 12/01/19 09:27 AB (Rec: 12/01/19 12:05 AB [email or web address]) PT-Bed Mobility Assessment Supine to Sit Supine to Sit Standby Assistance PT-Transfer Assessment Sit to and From Stand Sit to and from Stand Standby Assistance,1 Person Assistance,Use of Upper Extremities Equipment Transfer Assistive Device Gait Belt,Straight Cane Orthotic/Prosthetic Devices or Brace: Yes Transfers Transfer Destination Chair Transfer Technique ambulated using walking stick Transfer Ability Level of Assist Standby Assistance,Use of Upper Extremities Comments Mobility Comments pt is legally blind and uses a walking stick for transfers and ambulation. completed bed mobility SBA. assisted with sling management. pt stated that she has previous shoulder surgery before and will be able to inform caregiver on how to assist her with sling. pt completed sit to stand from EOB SBA. ambulated in hallway using walking stick SBA. completed up/down steps using L rail ascending SBA ascending CGA with descending due to decrease vision L>R. pt ambulated back to her room ~ 100 ft using walking stick SBA. pt sat on chair. NAC came in to assist pt with dressing. Gait Assessment Gait Gait Assistance Required: Standby Assistance Distance (Feet) 100 Able to Maintain Weight Bearing Status Yes During Gait Assistive Devices Assistive Device Gait Belt,Straight Cane Orthotic/Prosthetic Devices or Brace: Yes Gait Deviations General Gait Pattern Decreased Stride Length, Decreased Feet Clearance Factors Limiting Gait Function Factors Limiting Gait Function Decreased Activity Tolerance, Decreased Strength,Limited Range of Motion,Pain,Poor Balance Comments Gait Comments pls refer to mobility section for details Stair Climbing Assessment Evaluation Level of Assist On Stairs Standby Assistance,Contact Guard Assistance Devices Stair Climbing Assistive Devices Left Railing Technique/Endurance Stair Climbing Direction Ascend and Descend Stair Climbing Technique Step to Step Number of Steps Climbed 3 Stair Climbing Set # Repetitions (reps) 1 M5 PT-IP Objective Assessments Start: 11/30/19 12:12 Freq: NEEDED Status: Discharge Protocol: Document 11/30/19 14:17 AW (Rec: 11/30/19 14:50 AW [email or web address]) Orientation Orientation/Cognition Level of Alertness Alert Orientation Name,Day of Week,Place, Situation Language Function Ability No Deficits Noted Safety Awareness Understands Safety Issues Memory Description No Deficits Noted Gross Range of Motion Upper Extremity ROM Assessment Right Impaired Lower Extremity ROM Assessment Within Functional Limits Strength Upper Extremity Strength Assessment Right Impaired Lower Extremity Strength Assessment Within Functional Limits Sensation Assessment Sensation Gross Sensation Right UE Impaired,Right LE Impaired,Left LE Impaired Light Touch Impaired Sensation Description Numbness Comments Sensation Comments Pt has chronic median and ulnar nerve pain distally on the right side. Pt also has peripheral neuropathy affecting bilateral feet in stocking distribution up to mid-calf. Muscle Tone Muscle Tone WNL Yes M6 PT-IP Treatment Start: 11/30/19 12:12 Freq: NEEDED Status: Discharge Protocol: Document 12/01/19 09:27 AB (Rec: 12/01/19 12:05 AB [email or web address]) Physical Therapy Treatment Education Education Provided Precautions,Weight Bearing Status,Safety Brace Education [place],Patient Other Treatments Other Treatment Performed reviewed prcautions, donning/ doffing of sling, elbow/hand exercises and pendulum. attempted pendulum but pt unable to fully relax RUE to do pendulum safely but pt was able to dangle RUE. educated with dressing and sling management. M7 PT-IP Assessment and Plan Start: 11/30/19 12:12 Freq: NEEDED Status: Discharge Protocol: Document 12/01/19 09:27 AB (Rec: 12/01/19 12:05 AB [email or web address]) PT Summary Assessment and Plan Potential Rehabilitation Potential Good Summary Impairments Pain,ROM,Strength,Balance, Coordination,Sensation,Tone, Cognition,Bed Mobility, Transfers,Gait,Activity Tolerance Progress Towards Goals Progressing Toward Goals Assessment Summary pt requiring SBA with mobility and plans to go home with her son to assist her and also has friends during the day to assist as needed when son is not around. pt may go home when medically stable. Goals Bed Mobility Goal Independent Transfer Goal Independent,Cane Gait Goal Independent,Cane Gait Distance 200 Days to Meet Goals 3 Frequency of Treatment Frequency Of Treatment Twice a Day Treatment Plan Physical Therapy Treatment Plan Bed Mobility Training,Transfer Training,Gait Training, Therapeutic Exercise,Balance Retraining,Post Op Education, Discharge Planning,Hot or Cold Pack,Neuromuscular Re-ed Recommendations To Nursing Amount of Assist Needed Standby Assistance Discharge Recommendations PT Discharge Recommendations Home with Assistance, Outpatient PT Transportation Needs at Discharge Private Vehicle
--- NOTE | 2019-12-01 10:56 | PC.NURSE ---
Day shift: Pt left unit at approx 1045. Paperwork signed and all questions answered. Paperwork went over w/ Pt with BRIDGETT Huggins. Pt has MD scripts. Pt has all personal belongings. Pedro-vac removed per MD orders and Pt tolerated well.
== END 2019-12-01 10:59 | disposition home or self-care (01) | DRG 483 ==
PROVIDERS: Admitting Provider Orthopaedic Surgery; PCP Internal Medicine; Referring Provider Internal Medicine; Visit Provider Orthopaedic Surgery
PROC: 0RQJ0ZZ Repair Right Shoulder Joint, Open Approach (ICD-10-PCS; CPT 23472; principal; 2019-11-30 07:45)
DX: M19.011 Primary osteoarthritis, right shoulder (principal); Z68.41 Body mass index [BMI] 40.0-44.9, adult; E11.9 Type 2 diabetes mellitus without complications; G47.33 Obstructive sleep apnea (adult) (pediatric); F41.9 Anxiety disorder, unspecified; J45.20 Mild intermittent asthma, uncomplicated; Z79.4 Long term (current) use of insulin; I10 Essential (primary) hypertension; M79.7 Fibromyalgia; K21.9 Gastro-esophageal reflux disease without esophagitis; Z11.59 Encounter for screening for other viral diseases; E66.01 Morbid (severe) obesity due to excess calories
CPT/HCPCS: 36415; 73020; 82962; 85027; 87635; 94760; 97161; 97530; C1776; A9270; J0330; J0690; J1170; J2250; J2405; J2704; J3010

== ENCOUNTER → 2020-02-09 14:59 | Outpatient (CLI) | payer OTHER, SELFPAY ==
[2019-11-30 11:08] VITALS: BMI 40.8
--- NOTE | 2020-02-09 | DI.US.S_ITS ---
LIMITED ULTRASOUND OF RIGHT BREAST AND AXILLA: 02/09/2020 CLINICAL: Palpable right breast lump. Comparison is made to exams dated: 02/09/2020 ultrasound, 02/09/2020 mammogram, 08/11/2019 ultrasound, 08/11/2019 mammogram, 11/05/2018 ultrasound, and 11/05/2018 mammogram - [facility]. Ultrasound of the right breast 9-10 o'clock, and axilla regions was performed. There is a 12 x 13 x 13 millimeter round well-circumscribed cyst in the 9 o'clock middle depth which correlates with the patient's palpable abnormality and tenderness. There is no internal vascularity. This is unchanged compared to the prior ultrasound on 11/05/2018. There are low level internal echogenic foci within the probable cyst. This appears to correlate with the finding seen on mammography. IMPRESSION: BENIGN Stable 12 x 13 x 13 millimeter cyst in the right breast 9 o'clock position, stable on both ultrasound and mammogram. Return to annual mammogram screening schedule is recommended. Recommend clinical evaluation. If the tenderness persists, the cyst could be aspirated. This exam was interpreted at Station ID: [id number]. Electronically Signed By: Robbi Goldman acr/:02/09/2020 17:21:02 letter sent: Clinical Evaluation Ultrasound BI-RADS: 2 Benign
--- NOTE | 2020-02-09 15:02 | DI.MG.S_ITS ---
BILATERAL DIGITAL DIAGNOSTIC MAMMOGRAM 3D/2D: 02/09/2020 CLINICAL: Bilateral breast lumps. Comparison is made to exams dated: 08/11/2019 mammogram, 11/05/2018 mammogram, and 01/02/2018 mammogram - . There are scattered fibroglandular elements in both breasts. There is a stable mass in the right breast at 11 o'clock middle depth which was previously demonstrated to be a cyst. No other significant masses, calcifications, or other findings are seen in either breast. IMPRESSION: INCOMPLETE: NEEDS ADDITIONAL IMAGING EVALUATION A targeted ultrasound of both breasts in the areas of palpable abnormality is recommended and will be performed immediately following this exam. This exam was interpreted at Station ID: [id number]. NOTE: For mammograms, a report in lay terms will be sent to the patient. Approximately 15% of breast malignancies will not be visualized mammographically. In the management of a palpable breast mass, a negative mammogram must not discourage biopsy of a clinically suspicious lesion. Electronically Signed By: Robbi Goldman acr/:02/09/2020 16:05:27 ACR BI-RADS Category 0: Incomplete [id number]
--- NOTE | 2020-02-09 15:03 | DI.US.S_ITS ---
LIMITED ULTRASOUND OF LEFT BREAST AND AXILLA: 02/09/2020 CLINICAL: Palpable left breast lump and focal pain. Comparison is made to exams dated: 02/09/2020 mammogram, 08/11/2019 ultrasound, 08/11/2019 mammogram, 11/05/2018 ultrasound, and 11/05/2018 mammogram - Merged With [facility]. Ultrasound of the left breast 2-3 o'clock, and axilla regions was performed. IMPRESSION: NEGATIVE There is no sonographic evidence of malignancy. Return to annual mammogram screening schedule is recommended. This exam was interpreted at Station ID: [id number]. Electronically Signed By: Robbi Goldman acr/:02/09/2020 17:23:00 letter sent: Normal Exam Ultrasound BI-RADS: 1 Negative
== END ==
PROVIDERS: PCP Internal Medicine; Referring Provider Internal Medicine; Visit Provider Internal Medicine
DX: R92.8 Other abnormal and inconclusive findings on diagnostic imaging of breast; N60.01 Solitary cyst of right breast; N63.20 Unspecified lump in the left breast, unspecified quadrant; N64.4 Mastodynia
CPT/HCPCS: 76642; 77066; G0279

== ENCOUNTER → 2020-02-16 19:06 | Outpatient (ROUT) | payer OTHER, SELFPAY ==
[2019-11-30 11:08] VITALS: BMI 40.8
[2020-02-16 20:13] LABS: TSH w/ Reflex to FT4 0.55 uIU/mL (0.47-4.68)
== END ==
PROVIDERS: PCP Internal Medicine; Visit Provider Internal Medicine
DX: F33.9 Major depressive disorder, recurrent, unspecified (principal); E11.40 Type 2 diabetes mellitus with diabetic neuropathy, unspecified; E11.649 Type 2 diabetes mellitus with hypoglycemia without coma
CPT/HCPCS: 84443

== ENCOUNTER → 2020-02-22 10:59 | Outpatient (CLI) | payer OTHER, SELFPAY ==
[2019-11-30 11:08] VITALS: BMI 40.8
[2020-02-22 11:52] LABS: COVID19 -Nasal RAPID Negative (Negative)
== END ==
PROVIDERS: PCP Internal Medicine; Visit Provider Physician Assistant
DX: Z11.59 Encounter for screening for other viral diseases (principal)
CPT/HCPCS: 87635

== ENCOUNTER 2020-02-25 08:00 | Day surgery (SDC) | payer OTHER, SELFPAY ==
[2019-11-30 11:08] VITALS: BMI 40.8
[2020-02-25] MEDS: LACTATED RINGERS 1,000 ML 42 ML IV ×2 (08:31→10:21)
[2020-02-25 08:37] VITALS: BP 174/101; PULSE 92; RESP 16; TEMP 36.8; O2SAT 96; BMI 40.1
--- NOTE | 2020-02-25 09:07 | PM.PREOP ---
Pre-operative Note COVID-19 COVID-19 status: Negative Result date/Date tested (Pos, Neg/Pending): 02/23/20 Interval Note History & Physical reviewed/Exam performed by Physician: Yes Changes to H&P: No
[2020-02-25] MEDS: CEFAZOLIN 2 GM/100 ML FROZ.PIGGY IV (09:43)
--- NOTE | 2020-02-25 10:03 | SUR.OPER ---
Addendum entered by Nory Virk R.N. 02/25/20 10:21: right arm drape free, on black arm board, in control of the surgeon. Original Note: Supine on padded OR bed, head on pillow, left arm secured on padded arm boards at <90 degrees abduction, right arm in control of the surgeon, legs uncrossed, safety belt at thigh.
[2020-02-25] MEDS: BUPIVACAINE 0.5% W/ EPI (PF) 30 ML VIAL INJ (10:10)
[2020-02-25 10:32] VITALS: BP 141/80; PULSE 92; RESP 14; TEMP 36.5; O2SAT 93
[2020-02-25 10:37] VITALS: BP 147/66; PULSE 95; RESP 13; O2SAT 99
--- NOTE | 2020-02-25 10:37 | P.OP_ITS ---
Operative Date/Time/Diagnoses Date of procedure: 02/25/20 Time of procedure: 10:00 Pre-op diagnosis: Right carpal tunnel and cubital tunnel Post-op diagnosis: same Procedure & Clinicians Procedure: Right carpal tunnel and cubital tunnel release Same procedure as scheduled: Yes Indications: Patient with physical exam findings as well as EMG studies positive for both carpal tunnel and cubital tunnel. Surgeon: Justin Ortiz Photograph Retoucher: Ana Laura Morin Anesthesia Type: General Operative Notes Findings: Compression of the median nerve at the carpal tunnel and compression of the ulnar nerve at the cubital tunnel Closure Type: primary Specimen(s): none sent Estimated Blood Loss (mL): 0 Blood products transfused: none Tourniquet time (min): 24 Procedure in detail: On date of service, the patient was met in the holding area. Patients operative site was signed and witnessed by the OR staff. The surgery was once again discussed with the patient, and any remaining questions they had were answered fully. Patient was taken back to the operating theater and placed on the operating table in a supine position. Great care was taken to ensure that all bony prominences were carefully padded. A well-padded tourniquet was placed up along the upper extremity. A timeout was performed to verify patient's name, procedure, and operative site. The arm was then prepped and draped in the normal sterile fashion. A 15 blade was used to incise through skin In the center of the palm. Pickups and tenotomy scissors were used to dissect down until the palmar fascia was visualized. The palmar fascia was then sharply incised using a 15 blade. This gave us good visualization of the carpal ligament. A small opening was made into the carpal ligament, and a curved hemostat was placed into that opening. A 15 blade was then used to sharply incise the carpal ligament with the structures beneath being protected by the hemostat. Pickups and Metzenbaum scissors were used to complete the decompression both distally and proximally. This provided a complete decompression of the median nerve. Wound was irrigated and then closed with nylon. We then turned our attention to the cubital tunnel. Ten blade was used to make an incision centered over the cubital tunnel. Ten blade was used incise through skin and fascial tissue. Electrocautery was used to achieve hemostasis. Deep knife was used to proceed with sharp dissection. Next, Metzenbaum scissors were used to identify the nerve proximal to the cubital tunnel. This was then decompressed proximally. Next, the ulnar nerve was decompressed through the cubital tunnel by releasing the cubital tunnel. This decompression was continued distally providing a complete decompression of the nerve. Wound was irrigated and then closed in a layered fashion. The hand was then cleaned, dried, and dressed. Patient was taken to the PACU in stable condition. Complications: none Post-operative Condition: stable Disposition: PACU Plan for aftercare: Patient will follow-up postop protocol for carpal tunnel and cubital tunnel release
[2020-02-25 10:42] VITALS: BP 158/135; PULSE 98; RESP 15; O2SAT 94
[2020-02-25 10:48] VITALS: BP 155/107; PULSE 99; RESP 15; O2SAT 95
[2020-02-25 10:54] VITALS: BP 173/91; PULSE 96; RESP 14; O2SAT 95
== END 2020-02-25 11:05 | disposition home or self-care (01) ==
PROVIDERS: PCP Internal Medicine; Referring Provider Internal Medicine; Visit Provider Orthopaedic Surgery
PROC: (CPT 64721; principal; 2020-02-25 10:00)
PROC: (CPT 64718; 2020-02-25 10:00)
DX: G56.21 Lesion of ulnar nerve, right upper limb (principal); G56.01 Carpal tunnel syndrome, right upper limb; M19.011 Primary osteoarthritis, right shoulder; G47.33 Obstructive sleep apnea (adult) (pediatric); J45.20 Mild intermittent asthma, uncomplicated; H54.8 Legal blindness, as defined in USA; I10 Essential (primary) hypertension; E78.5 Hyperlipidemia, unspecified; E11.9 Type 2 diabetes mellitus without complications; F32.9 Major depressive disorder, single episode, unspecified; Z79.4 Long term (current) use of insulin
CPT/HCPCS: 64718; 64721; J0690; J2250; J2405; J2704; J3010

== ENCOUNTER → 2020-03-30 13:32 | Outpatient (CLI) | payer OTHER, SELFPAY ==
[2019-11-30 11:08] VITALS: BMI 40.8
--- NOTE | 2020-04-20 09:11 | PM.CARDMON.1 ---
Optical Glass Inspector Report Referral & Results Date Patient Seen: 03/30/20 Requesting provider: Bud Sheridan Indication: Palpitations Duration of monitoring (days): 6 Diary information: There are 10 patient triggered events and 9 patient diary entries All of these events were associated with (within 45 seconds) sinus rhythm and PVCs Data: Minimum heart rate identified was 63 beats per minute at 21:25 on 04/01/2020 Maximum heart rate was 131 beats per minute at 12:58 on 03/31/2020 Less than 1% of identified beats rather ventricular or supraventricular in origin Impression: 6 day quality assurance monitor body showing possible PVCs as a source of patient's sense of palpitations. However PVCs identified on this study should be considered rare overall. Clinical correlation suggested
== END ==
PROVIDERS: PCP Internal Medicine; Referring Provider Internal Medicine; Visit Provider Internal Medicine
DX: R00.2 Palpitations (principal)
CPT/HCPCS: 0298T; 93242; 93244

== ENCOUNTER → 2020-06-02 14:03 | Outpatient (CLI) | payer OTHER, SELFPAY ==
[2019-11-30 11:08] VITALS: BMI 40.8
--- NOTE | 2020-06-02 14:05 | DI.CT.S_ITS ---
PROCEDURE: CT UE RT WO CON INDICATIONS: Dislocation of other internal joint prosthesis, in TECHNIQUE: Noncontrast 1-1.5 mm thick sections acquired from the acromioclavicular joint to the inferior scapula, with coronal and sagittal reformatting. COMPARISON: [facility], CR, XR SHOULDER 2+ VIEWS RIGHT, 04/14/2020, 9:45. FINDINGS: Image quality: Excellent. Incidentally noted os acromiale. Postsurgical changes related to right shoulder arthroplasty. The hardware appears grossly intact. No acute fracture seen. There appears to be expected postoperative alignment. AC joint degeneration. The visualized right lung grossly unremarkable. Anatomic alignment at the AC joint. Cervical spondylosis and facet arthropathy. There is some cortical loss at the glenoid although unclear if this is postoperative appearance. IMPRESSION: Right shoulder arthroplasty in expected postoperative alignment. Dictated by: Errol Stuart M.D. on 06/02/2020 at 17:18 Approved by: Errol Stuart M.D. on 06/02/2020 at 17:36
== END ==
PROVIDERS: PCP Internal Medicine; Referring Provider Orthopaedic Surgery; Visit Provider Orthopaedic Surgery
DX: T84.028A Dislocation of other internal joint prosthesis, initial encounter (principal); M19.011 Primary osteoarthritis, right shoulder; M47.812 Spondylosis without myelopathy or radiculopathy, cervical region
CPT/HCPCS: 73200

== ENCOUNTER → 2020-07-02 09:05 | Outpatient (CLI) | payer OTHER, SELFPAY ==
[2019-11-30 11:08] VITALS: BMI 40.8
[2020-07-02 13:08] LABS: COVID19 -Nasal RAPID Negative (Negative)
== END ==
PROVIDERS: PCP Internal Medicine; Visit Provider Physician Assistant
DX: Z20.822 Contact with and (suspected) exposure to COVID-19 (principal)
CPT/HCPCS: 87635; C9803

== ENCOUNTER 2020-07-04 05:50 | Observation (INO) | payer OTHER, SELFPAY ==
[2019-11-30 11:08] VITALS: BMI 40.8
[2020-06-27 09:46] VITALS: BMI 40.2
[2020-07-04] VITALS (20 sets, daily range): BP systolic 108–183; BP diastolic 63–91; PULSE 76–99; RESP 10–20; TEMP 36.2–36.5; O2SAT 91–97; BMI 40.2
--- NOTE | 2020-07-04 06:44 | DI.RAD.S_ITS ---
PROCEDURE: XR SHOULDER RT 1V INDICATIONS: Post op total shoulder TECHNIQUE: 1 views of the shoulder were acquired. COMPARISON: [facility], CR, XR SHOULDER RT 1V, 11/30/2019, 10:13. FINDINGS: Bones: No fractures or dislocations. No suspicious bony lesions. Visualized ribs appear intact. Right shoulder arthroplasty is present. Hardware is intact without evidence of hardware fracture or periprosthetic loosening. Moderate to severe acromioclavicular narrowing is present. Soft tissues: No suspicious soft tissue calcifications. IMPRESSION: Stable appearance of shoulder arthroplasty. Dictated by: Veronica Powell M.D. on 07/04/2020 at 9:46 Approved by: Veronica Powell M.D. on 07/04/2020 at 9:49
[2020-07-04] MEDS: PREGABALIN 75 MG CAPSULE PO (06:56)
[2020-07-04] MEDS: ACETAMINOPHEN 325 MG TABLET 975 MG PO (06:56)
--- NOTE | 2020-07-04 07:30 | PM.PREOP ---
Pre-operative Note COVID-19 COVID-19 status: Negative Result date/Date tested (Pos, Neg/Pending): 07/02/20 Interval Note History & Physical reviewed/Exam performed by Physician: Yes Changes to H&P: No
[2020-07-04] MEDS: LACTATED RINGERS 1,000 ML 42 ML IV (07:40)
[2020-07-04] MEDS: CEFAZOLIN 2 GM/100 ML FROZ.PIGGY IV (07:50)
[2020-07-04] MEDS: TRANEXAMIC ACID 1,000 MG VIAL 1000 MG INJ ×2 (08:12→09:24)
--- NOTE | 2020-07-04 08:30 | PM.PROC.1 ---
Procedures Date/Time Date of procedure: 07/04/20 Time of procedure: 07:40 General Procedure description: Ultrasound guided interscalene brachial plexus nerve block for post op pain control after right shoulder surgery by Dr. Garcia. Risk and benefits of procedure discussed with patient. ASA monitoring applied to patient. O2 given via nasal cannula. Skin site was prepped with chlorhexidine and allowed to fully dry. Sterile gloves, mask, hat and probe cover were used to maintain sterility. 2% lidocaine and 30ga needle was used to make a small skin wheal at needle insertion site. Under ultrasound guidance, a 21ga 50mm Pajunk needle was directed into the interscalene groove (middle/anterior scalenes) near the brachial plexus. Patient reported mild, limited parasthesias that went away with needle reposition. After negative aspiration, 20 mL 0.5% ropivicaine and 10mg dexamethasone were injected around brachial plexus. Patient tolerated procedure well. Interscalene brachial plexus
[2020-07-04] MEDS: BUPIVACAINE 0.25% W/ EPI (PF) 10 ML VIAL 30 ML INJ (08:47)
--- NOTE | 2020-07-04 09:39 | P.OP_ITS ---
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 She initially did well but then began to develop sensations of instability. Examination was not particularly remarkable for increased laxity however her radiographs did show anterior subluxation on the axillary view. This failed to respond to extensive attempts at non operative management with physical therapy and she has requested exploration and revision as indicated after discussion the risks benefits and alternatives and failure of non operative management. Risks discussed included but were not limited to: Failure to relieve symptoms, iatrogenic fracture, nerve damage, infection, deep venous thrombosis, pulmonary embolism, myocardial infarction, aspiration pneumonia, permanent paralysis and . Surgeon: Josias Garcia Production Operator: Terence Jamil Anesthesia Type: General, Peripheral nerve block and Local Operative Notes Findings: Complete rupture of subscapularis tendon with increased anterior translation on laxity testing. Well-fixed humeral stem and glenoid. Closure Type: primary Specimen(s): other (The membrane from under the humeral head was sent for culture.) Prosthetic devices, grafts, tissues, transplants, or devices: Removed were the humeral head and the glenoid prosthesis. Implanted were an RSP glenoid base plate with a 30 mm screw length, 4 locking screws measuring 22, 18, 14 and 14 mm in length, a size 32-4 mm RSP glenoid head with retaining screw, an Altivate anatomic to RSP conversion shell as well as a 32 mm standard humeral socket insert. Applied: implant(s) Estimated Blood Loss (mL): 150 Blood products transfused: none Procedure in detail: The patient was seen in the pre-operative area, where the patient identified the right shoulder as the operative site and this was marked with my initials. The patient received pre-operative antibiotics, underwent an interscalene block, and was taken to the operating room and placed on the operative table in the supine position. After satisfactory anesthesia, a full ?time out? was performed. The patient was repositioned in the ?beach chair? position using a dedicated positioner. All pressure points were well padded, and the knees were slightly bent to prevent tension on the sciatic nerves. I examined the patient under anesthesia and there was increased translation anteriorly. The right arm was prepared from the fingers to the base of the neck with ChloroPrep in the usual fashion and draped through sterile drapes. An approximately 15 cm incision was created in the prior scar, starting at the clavicle above the coracoid process and extended towards the deltoid insertion. The deltopectoral interval was used to access the shoulder. This was extensively scarred in but eventually was identified and the deltoid was elevated from the underlying humerus releasing the scar in this motion interval. A self retaining retractor was placed. There was extensive scarring in the anterior shoulder and the strap muscles were were scarred down to the remainder of the subscapularis. Direct palpation of the axillary nerve was not possible. Immediately upon attempting to mobilize the strap muscles the joint was entered as the subscapularis had torn and retracted and there was minimal scar tissue closing the anterior joint. This was carefully excised. The shoulder was dislocated and a ?tuning fork? was used to remove the humeral head. The membrane from under the humeral head was removed and sent to the lab for culture. We then removed the self-retaining retractor and placed retractors to access the glenoid. The periphery of the glenoid was carefully released from the soft tissues and scar with care being taken to remain on the bone and avoid the axillary nerve. The glenoid prosthetic was cut into sections with a small saw and removed. The central post was removed by using a drill followed by grasping it with a hemostat. The face the glenoid was cleaned. The a aimer for the glenoid was used to drill the central screw hole and the tap was placed. The tap was used as the guide for the glenoid Reamer. The glenoid was carefully reamed until there was enough support for the base plate. The base plate was then placed with excellent fixation. The surrounding locking screws were placed using the guide for that purpose. A trial glenoid head was then placed. We returned our attention to the humerus, the conversion shell was impacted onto the stem. The stem was well fixed. Initially the neutral liner was placed. I was unable to reduce the shoulder. We then removed the conversion shell and changed the glenoid head to a -4 implant and then repeated and attempt at reduction which was successful. Stability was checked with no impingement in internal or external rotation at the side or in abduction. There was internal rotation to approximately 60? and external rotation to approximately 80? in the ?scared probe position?. I was able to place the patient's hand over her groin, her mouth and the top of her head. This was felt to be satisfactory and the appropriate implants were opened. The final implants were opened and placed. Fixation of the glenoid head was confirmed in both rotation and axially prior to placing the retention screw. The joint was relocated 1 final time and irrigated. The deltopectoral interval was closed with interrupted 0 Vicryl. The subcutaneous layer was closed with 3-0 Vicryl, and the skin with a running 3-0 V-Lock suture and Dermabond. An Aquacel Ag dressing was applied, the patient?s arm was placed in a sling, and the patient was taken to recovery having tolerated the procedure well. Complications: none Post-operative Condition: stable Disposition: PACU Plan for aftercare: The patient will be allowed to do pendulum exercises and to use her hand in front of her torso below shoulder level. She will likely be discharged tomorrow if pain control is adequate and she is able to transfer and use the bathroom.
[2020-07-04] MEDS: ONDANSETRON 4 MG/2 ML INJ IV (10:06)
--- NOTE | 2020-07-04 10:37 | SUR.PREOP ---
Nerve block completed with dr sigala. Pt on continuous monitoring without difficulty and nasal cannula 2l applied. OR nurse Alma Rosa to bedside to escort patient to surgery.
--- NOTE | 2020-07-04 10:49 | SUR.PHASEI ---
report given. pt transported to room 205 by Lillian Rawls in stable condition
--- NOTE | 2020-07-04 11:00 | PC.NURSE ---
Report rec'd, given by BRIDGETT Baird. Pt arrived via bed, A&Ox4, O2 sats 87% on RA, placed on 2L O2 NC, now satting 94%. Fine crackles noted in RLL, set pt up with incentive spirometer, instructions on use given. R hand/arm CMS intact, reporting some numbness. Eliza kowalski CDI. Pt has visual deficit, able to use call box appropriately, assistive cane present in room when needed. Personal medications sent to pharmacy. Pt's purse left at bedside per pt request.
[2020-07-04] MEDS: LACTATED RINGERS 1,000 ML 100 ML IV ×2 (11:32→19:15)
[2020-07-04] MEDS: OXYCODONE IR 5 MG TABLET PO ×2 (12:59→23:51)
[2020-07-04] MEDS: ACETAMINOPHEN 325 MG TABLET 650 MG PO ×2 (14:02→20:50)
--- NOTE | 2020-07-04 14:27 | PT.IIE ---
Current Diagnoses Dislocation of other internal joint prosthesis, initial encounter (07/04/20) Surgery Performed Operation Date: 07/04/20 07:45 Actual Procedures p Total Shoulder Arthroplasty Revision - glenoid & humeral components(Right) - Josias Garcia MD Surgical History (Last Updated 06/27/20 @ 10:04 by Hanna Lee RN) History of arthroplasty of left knee (12/10/18) History of arthroplasty of right shoulder (11/30/19) History of carpal tunnel surgery of right wrist (02/24/20) History of colonoscopy History of liver biopsy (02/12/18) History of total left knee replacement Hx of arthroscopic knee surgery Hx of cholecystectomy (02/12/18) Hx of shoulder surgery Hx of tonsillectomy S/P right unicompartmental knee replacement (07/23/18) S/P rotator cuff repair Medical History (Last Updated 06/28/20 @ 07:21 by Hanna Lee RN) 2nd degree AV block Anxiety Arthritis Asthma Blindness and low vision Chest pain Cholecystitis Cholelithiasis Chronic venous stasis Depression Diverticulosis Edema Elevated LFTs Epigastric pain Fibromyalgia GERD (gastroesophageal reflux disease) Hearing impaired History of migraine History of UTI Hyperlipidemia Hypertension Kidney stones (~08/2014) Knee pain, right Long QT interval Long QT syndrome (~2018) Macular degeneration Migraines Multiple gastric polyps HARRIS (nonalcoholic steatohepatitis) Obese Optic neuritis Peptic ulcer disease Peripheral neuropathy PTSD (post-traumatic stress disorder) Renal insufficiency Seizures Sleep apnea with use of continuous positive airway pressure (CPAP) Type 2 diabetes mellitus Physical Therapy Inpatient Evaluation/Re-Eval M1 PT/OT-IP Prior Functional Status Start: 07/04/20 13:14 Freq: NEEDED Status: Active Protocol: Document 07/04/20 14:27 AW (Rec: 07/04/20 15:14 AW [id number]) Medical Review Prior Functional Status Medical History Reviewed Yes Communication WNL. Pt is an effective verbal communicator. Mobility and Gait Pt has macular degeneration and is legally blind. She ambulates with a mobility cane which she typically holds in her right hand but she is able to manage with either hand. Pt admits she fell after stepping on one of her cats two weeks ago but did not injure herself. She denies other falls in the past one year. Activities of Daily Living and IADL's Indpendent. Prior Functional Level (Other details) Pt had R TSA in November 2019 . She returns for revision due to anterior GH instability. Social History Household Members children Living Arrangements Mobile home Number of Floors (Floors) One Floor Number of Stairs To Enter/Railing? 4 KATHRYN with left rail ascending . Pt is able to contact the wall of the house on her left side as she descents. Home Environment High Toilet,Tub/Shower Home Equipment Straight Cane,Hand Held Shower ,Long Handled Sponge Additional Social History Comment Pt lives with her son, Moiz, who works flight crew time clerk. Pt has a sister and neighbors who will be able to provide assist as needed at discharge. M2 PT-IP Current Condition Start: 07/04/20 13:14 Freq: NEEDED Status: Active Protocol: Document 07/04/20 14:27 AW (Rec: 07/04/20 15:14 AW [id number]) Physical Therapy Current Condition Current Condition Evaluation Date 07/04/20 Treatment Diagnosis revision R TSA to reverse TSA; dec indep with ADL's; difficulty walking Onset Date 07/04/20 Precautions Shoulder Precautions Sling,PROM,Internal Rotation to Body,No External Rotation, No Abduction,Forward Flexion to 90 degrees,Pendulums Brace sling on for all mobility Other Precautions falls Weight Bearing Status Weight Bearing Status Weight Bear as Tolerated M3 PT-IP Subjective Start: 07/04/20 13:14 Freq: NEEDED Status: Active Protocol: Document 07/04/20 14:27 AW (Rec: 07/04/20 15:14 AW [id number]) Subjective Physical Therapy Visit Type Type Initial Evaluation Visit Start Time 14:00 Visit Stop Time 14:27 Total Visit Minutes 27 Number of OSTEOPATHIC RESIDENT Visits 0 Physical Therapy Visit Comments Patient Comments Pt is willing to participate with PT Patient Goals Return home with assist Therapy Pain Assessment Pain When Pain Assessed At Rest Pain Present Pain Present Pain Reported Location right shoulder Intensity 8 Scale Used Numeric (0 - 10) Pain Management Techniques Apply Cold,Re-positioning, Timing of Activity with Medications M4 PT-IP Mobility and Gait Start: 07/04/20 13:14 Freq: NEEDED Status: Active Protocol: Document 07/04/20 14:27 AW (Rec: 07/04/20 15:14 AW [id number]) PT-Bed Mobility Assessment Supine to Sit Supine to Sit Standby Assistance Scooting Scooting to Edge of Bed Standby Assistance PT-Transfer Assessment Sit to and From Stand Sit to and from Stand Contact Guard Assistance,Use of Upper Extremities Equipment Transfer Assistive Device Gait Belt,Straight Cane Orthotic/Prosthetic Devices or Brace: Yes Transfers Transfer Destination Chair Transfer Technique Stand Step Pivot Transfer Ability Level of Assist Contact Guard Assistance Comments Mobility Comments Pt was sitting up in bed as PT arrived. She was on 2L/min O2 vis NC. She completed supine to sit SBA and stood from EOB CGA using mobility cane. Transferred O2 to portable tank. PT adjusted sling for optimal fit and pt reported increased comfort. Pt ambulated around the unit and completed stair assessment with cane and assist for IV and O2 tank management. On return to the room, pt transferred to the chair and agreed to sit up. Pt was able to locate call button with no modifications. She was left with call light and all needs in reach. Pillows were placed under RUE for comfort and support. Gait Assessment Gait Gait Assistance Required: Standby Assistance,Contact Guard Assist Distance (Feet) 200 Able to Maintain Weight Bearing Status Yes During Gait Assistive Devices Assistive Device Gait Belt,Straight Cane Gait Deviations General Gait Pattern Decreased Feet Clearance, Lateral Trunk Lean,Wide Based Gait Factors Limiting Gait Function Factors Limiting Gait Function Limited Range of Motion,Pain, Poor Balance Comments Gait Comments See mobility comments for details. Stair Climbing Assessment Evaluation Level of Assist On Stairs Contact Guard Assistance,1 Person Assistance Devices Stair Climbing Assistive Devices Straight Cane,Left Railing Technique/Endurance Stair Climbing Direction Ascend and Descend Stair Climbing Technique Step to Step Number of Steps Climbed 3 Query Text: Stair Climbing Set # Repetitions (reps) 1 PT-Balance Assessment Sitting Balance and Reactions Static Sitting Balance Ability Normal Dynamic Sitting Balance Ability Good Standing Balance and Reactions Static Standing Balance Ability Good Dynamic Standing Balance Ability Fair Device Used mobility cane M5 PT-IP Objective Assessments Start: 07/04/20 13:14 Freq: NEEDED Status: Active Protocol: Document 07/04/20 14:27 AW (Rec: 07/04/20 15:14 AW [id number]) Orientation Orientation/Cognition Level of Alertness Alert Orientation Name,Day of Week,Place, Situation Language Function Ability No Deficits Noted Safety Awareness Understands Safety Issues Memory Description No Deficits Noted Gross Range of Motion Upper Extremity ROM Assessment Right Impaired Lower Extremity ROM Assessment Within Functional Limits Strength Upper Extremity Strength Assessment Right Impaired Lower Extremity Strength Assessment Within Functional Limits Sensation Assessment Sensation Gross Sensation Right UE Impaired,Right LE Impaired,Left LE Impaired Light Touch Impaired Sensation Description Numbness Comments Sensation Comments Pt reports chronic median and ulnar nerve pain distally on the RUE. She also has peripheral neuropathy which affects both feet in stocking distribution to ~mid-calf. Muscle Tone Muscle Tone WNL Yes M6 PT-IP Treatment Start: 07/04/20 13:14 Freq: NEEDED Status: Active Protocol: Document 07/04/20 14:27 AW (Rec: 07/04/20 15:14 AW [id number]) Physical Therapy Treatment Education Education Provided Precautions,Post-Op Packet, Safety Brace Education [place],Patient Other Treatments Other Treatment Performed Educated pt on evaluation findings, plan of care, ADL management, and post-op precautions. M7 PT-IP Assessment and Plan Start: 07/04/20 13:14 Freq: NEEDED Status: Active Protocol: Document 07/04/20 14:27 AW (Rec: 07/04/20 15:14 AW [id number]) PT Summary Assessment and Plan Potential Rehabilitation Potential Good Status of Condition at Evaluation Evolving Summary Impairments Pain,ROM,Strength,Balance, Sensation,Transfers,Gait Assessment Summary Kimberly is a 60 yo woman seen for PT evaluation on POD0 following revision R TSA. She uses a mobility cane due to visual impairment at baseline. She usually holds it in her right hand but is able to manage with her left hand on evaluation. Pt required SBA to CGA for mobility with folding cane on left side. Pt will be safe for discharge home with assist once medically stable. PT will follow for an additional visit to reinforce precautions and review ROM exercises. Goals Bed Mobility Goal Independent Transfer Goal Independent,Cane Gait Goal Independent,Cane Gait Distance 200 Other Goals - up/down 4 steps with cane and left rail ascending SBA Frequency of Treatment Frequency Of Treatment Twice a Day Treatment Plan Physical Therapy Treatment Plan Bed Mobility Training,Transfer Training,Gait Training, Therapeutic Exercise,Balance Retraining,Post Op Education, Discharge Planning,Hot or Cold Pack Other Recommendations and Next Treatment review precautions and ROM Focus Precautions Shoulder Precautions Sling,PROM,Internal Rotation to Body,No External Rotation, No Abduction,Forward Flexion to 90 degrees,Pendulums Other Precautions falls Recommendations To Nursing Amount of Assist Needed 1 Person Assist Discharge Recommendations PT Discharge Recommendations Home with Assistance, Outpatient PT Transportation Needs at Discharge Private Vehicle
[2020-07-04] MEDS: HYDROMORPHONE 2 MG TABLET PO (15:29)
--- NOTE | 2020-07-04 15:44 | PC.NURSE ---
Addendum entered by Ritu Kaminski R.N. 07/04/20 21:19: Pt listening to TV. Pain control issues this evening, Oxycodone 10mg appears to be the most beneficial. CBG AC = 184 CBG HS 222, given her home dose of 90u trujet Dsg to shoulder CDI IVF continue to run as per orders. Call light w/in reach, bed alarm on for pt safety. Continue w/plan of care. Original Note: Pt sitting in chair, States discomfrot 10/18, med w/po dilaudid SpO2 93% on 2LO2 Aquacell dsg to right shoulder CDI IV LR infusing as per orders via pump into left hand w/o incidence. Call light w/in reach, pt calls appropriately for needs.
[2020-07-04] MEDS: ALBUTEROL 2.5 MG/3 ML NEB (ADULT) INH (18:04)
[2020-07-04] MEDS: OXYCODONE IR 10 MG TABLET PO (19:10)
[2020-07-04] MEDS: METFORMIN HCL 500 MG TABLET PO (20:50)
[2020-07-04] MEDS: ATORVASTATIN 20 MG TABLET 80 MG PO (20:50)
[2020-07-04] MEDS: DOCUSATE 100 MG CAPSULE PO (20:50)
[2020-07-04] MEDS: ASPIRIN EC 81 MG TABLET PO (20:50)
[2020-07-04] MEDS: PANTOPRAZOLE 40 MG TABLET PO (20:51)
[2020-07-04] MEDS: INSULIN GLARGINE U 90 EACH SUBCUT (20:53)
[2020-07-04] MEDS: NAPROXEN 250 MG TABLET PO (21:04)
[2020-07-04] MEDS: TRIAZOLAM 0.125 MG TABLET 0.25 MG PO (21:05)
[2020-07-04] MEDS: FUROSEMIDE 40 MG TABLET PO (21:09)
[2020-07-05 00:01] VITALS: BP 110/56; PULSE 71; RESP 18; TEMP 36.3; O2SAT 95
--- NOTE | 2020-07-05 00:30 | PC.NURSE ---
Addendum entered by Tierra Moraes R.N. 07/05/20 05:56: Awake this morning and assisted to bathroom; walked unassisted and without cane to/from bathroom and is steady on feet. States pain which earlier was 5/10 is now 2/10 after receiving Oxycodone. Oxygen removed and remains 92% so left off. Original Note: patient is alert and oriented. Blind in left eye and impaired vision on right. Breath sounds diminished but CTA with RA sat at shift change (with CPAP on) was only 88% so RT evaluated and added oxygen at 2L/min per NC in addition to CPAP. Upon entering room sat still only at 90% so increased oxygen to 3L/min. HRR. Denies nausea. BT hypoactive and patient denies flatus as yet. Has voided since surgery; denies dysuria, frequency or urgency. Is able to move self in bed. Aquacel dressing to right shoulder is CDI. Still with some numbness in right arm/hand but able to move fingers, has good radial pulse and skin is warm to touch with good capillary refill. Right UE is in sling. States pain is 4/10 so medicated with Oxycodone and has ice to shoulder. Reportedly gets up to bathroom with 1 assist + cane. Has chronic bilateral LE neuropathy toe to below knee. Is wearing bilateral calf SCD's. Reports having fallen in past 3 months so fall risk score is high and bed alarm is activated.
[2020-07-05 03:43] VITALS: BP 121/56; PULSE 85; RESP 18; TEMP 36.6; O2SAT 96
[2020-07-05] MEDS: OXYCODONE IR 5 MG TABLET PO ×2 (04:06→07:49)
[2020-07-05 05:25] LABS: Hematocrit 33.6 % (36-46)
[2020-07-05 07:28] VITALS: BP 120/69; PULSE 72; RESP 16; TEMP 36.1; O2SAT 92
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
[2020-07-05] MEDS: DULOXETINE 30 MG CAPSULE 120 MG PO (09:10)
[2020-07-05] MEDS: NAPROXEN 250 MG TABLET PO (09:10)
[2020-07-05] MEDS: ASPIRIN EC 81 MG TABLET PO (09:11)
[2020-07-05] MEDS: BENAZEPRIL 20 MG TABLET PO (09:11)
[2020-07-05] MEDS: DOCUSATE 100 MG CAPSULE PO (09:11)
[2020-07-05] MEDS: METFORMIN HCL 500 MG TABLET PO (09:11)
[2020-07-05] MEDS: FUROSEMIDE 40 MG TABLET PO (09:11)
[2020-07-05] MEDS: PANTOPRAZOLE 40 MG TABLET PO (09:11)
[2020-07-05] MEDS: MULTIVITAMIN 1 TABLET 1 TAB PO (09:11)
[2020-07-05] MEDS: POTASSIUM CHLORIDE 20 MEQ TAB PO (09:11)
[2020-07-05] MEDS: ACETAMINOPHEN 325 MG TABLET 650 MG PO (09:11)
[2020-07-05] MEDS: GABAPENTIN 600 MG TABLET PO (09:13)
--- NOTE | 2020-07-05 09:17 | PT.IPTN ---
Current Diagnoses Sleep apnea, unspecified (07/04/20) Dislocation of other internal joint prosthesis, initial encounter (07/04/20) Surgery Performed Operation Date: 07/04/20 07:45 Actual Procedures p Total Shoulder Arthroplasty Revision - glenoid & humeral components(Right) - Josias Garcia MD Physical Therapy Treatment Note M2 PT-IP Current Condition Start: 07/04/20 13:14 Freq: NEEDED Status: Active Protocol: Document 07/04/20 14:27 AW (Rec: 07/04/20 15:14 AW [id number]) Physical Therapy Current Condition Current Condition Evaluation Date 07/04/20 Treatment Diagnosis revision R TSA to reverse TSA; dec indep with ADL's; difficulty walking Onset Date 07/04/20 Precautions Shoulder Precautions Sling,PROM,Internal Rotation to Body,No External Rotation, No Abduction,Forward Flexion to 90 degrees,Pendulums Brace sling on for all mobility Other Precautions falls Weight Bearing Status Weight Bearing Status Weight Bear as Tolerated M3 PT-IP Subjective Start: 07/04/20 13:14 Freq: NEEDED Status: Active Protocol: Document 07/05/20 09:17 AW (Rec: 07/05/20 09:26 AW [id number]) Subjective Physical Therapy Visit Type Type Treatment Note Visit Start Time 09:04 Visit Stop Time 09:17 Total Visit Minutes 13 Physical Therapy Visit Comments Patient Comments Pt is dressed and sitting up in bed, ready to discharge. Therapy Pain Assessment Pain When Pain Assessed During Mobility Pain Present Pain Present Pain Reported Location right shoulder Intensity 2 Scale Used Numeric (0 - 10) Pain Management Techniques Timing of Activity with Medications M4 PT-IP Mobility and Gait Start: 07/04/20 13:14 Freq: NEEDED Status: Active Protocol: Document 07/05/20 09:17 AW (Rec: 07/05/20 09:26 AW [id number]) PT-Transfer Assessment Sit to and From Stand Sit to and from Stand Standby Assistance Equipment Transfer Assistive Device Gait Belt,Straight Cane Transfers Transfer Destination Bed Transfer Technique Stand Step Pivot Transfer Ability Level of Assist Standby Assistance Comments Mobility Comments Pt was sitting EOB preparing for discharge. She stood and walked to the mirror for review of precautions, ther ex , and sling fitting. Once finished, she walked back and sat EOB SBA. Gait Assessment Gait Gait Assistance Required: Standby Assistance Able to Maintain Weight Bearing Status Yes During Gait Assistive Devices Assistive Device Gait Belt,Straight Cane Orthotic/Prosthetic Devices or Brace: Yes Gait Deviations General Gait Pattern Decreased Feet Clearance, Lateral Trunk Lean,Wide Based Gait Factors Limiting Gait Function Factors Limiting Gait Function Limited Range of Motion,Pain, Poor Balance PT-Balance Assessment Sitting Balance and Reactions Static Sitting Balance Ability Normal Dynamic Sitting Balance Ability Good Standing Balance and Reactions Static Standing Balance Ability Good Dynamic Standing Balance Ability Good Device Used mobility cane M5 PT-IP Objective Assessments Start: 07/04/20 13:14 Freq: NEEDED Status: Active Protocol: Document 07/04/20 14:27 AW (Rec: 07/04/20 15:14 AW [id number]) Orientation Orientation/Cognition Level of Alertness Alert Orientation Name,Day of Week,Place, Situation Language Function Ability No Deficits Noted Safety Awareness Understands Safety Issues Memory Description No Deficits Noted Gross Range of Motion Upper Extremity ROM Assessment Right Impaired Lower Extremity ROM Assessment Within Functional Limits Strength Upper Extremity Strength Assessment Right Impaired Lower Extremity Strength Assessment Within Functional Limits Sensation Assessment Sensation Gross Sensation Right UE Impaired,Right LE Impaired,Left LE Impaired Light Touch Impaired Sensation Description Numbness Comments Sensation Comments Pt reports chronic median and ulnar nerve pain distally on the RUE. She also has peripheral neuropathy which affects both feet in stocking distribution to ~mid-calf. Muscle Tone Muscle Tone WNL Yes M6 PT-IP Treatment Start: 07/04/20 13:14 Freq: NEEDED Status: Active Protocol: Document 07/05/20 09:17 AW (Rec: 07/05/20 09:26 AW [id number]) Physical Therapy Treatment Education Education Provided Precautions,Safety Brace Education [place],Patient Other Treatments Other Treatment Performed Reinforced precautions and ther ex. M7 PT-IP Assessment and Plan Start: 07/04/20 13:14 Freq: NEEDED Status: Active Protocol: Document 07/05/20 09:17 AW (Rec: 07/05/20 09:26 AW [id number]) PT Summary Assessment and Plan Summary Impairments Pain,ROM,Strength,Balance, Sensation,Transfers,Gait Progress Towards Goals Progressing Toward Goals Assessment Summary Kimberly is moving well one day following right shoulder revision to reverse TSA. She is aware of her precautions and is able to don and doff her sling. Pt is able to perform AROM elbow, wrist, and hand but declined pendulums today. Pt may discharge home once medically stable. Goals Bed Mobility Goal Independent Transfer Goal Independent,Cane Gait Goal Independent,Cane Gait Distance 200 Other Goals - up/down 4 steps with cane and left rail ascending SBA Frequency of Treatment Frequency Of Treatment Discharge Treatment Plan Physical Therapy Treatment Plan Bed Mobility Training,Transfer Training,Gait Training, Therapeutic Exercise,Balance Retraining,Post Op Education, Discharge Planning,Hot or Cold Pack Precautions Shoulder Precautions Sling,PROM,Internal Rotation to Body,No External Rotation, No Abduction,Forward Flexion to 90 degrees,Pendulums Other Precautions falls Recommendations To Nursing Amount of Assist Needed Standby Assistance Discharge Recommendations PT Discharge Recommendations Home with Assistance, Outpatient PT Transportation Needs at Discharge Private Vehicle
--- NOTE | 2020-07-05 09:41 | PC.NURSE ---
Pt discharge instructions given to pt and friend, discussed- medications, activity, diet, weight measures, worsening s/s, s/s of stroke, reasons to seek medical attention. Pt expressed understanding, all questions answered. Paper prescription given to pt. All belongings packed. Pt dressed with 1PA. IV removed, intact, tolerated well. Pt left via w/c accompanied by DOCUMENT IMAGING SPECIALIST, to friend's POV.
--- NOTE | 2020-07-05 11:11 | PM.DS.1 ---
History of Present Illness History of Present Illness Date Patient Seen: 07/05/20 Time Patient Seen: 07:50 Chief complaint: OPB Narrative: Patient's pain is well controlled. Denies fever or chills. No nausea or vomiting. Discharge Providers Provider Date of admission: 07/04/20 05:50 Discharge Date: 07/05/20 Primary care physician: Bud Sheridan MD Consults: 07/04/20 06:53 Consult to Respiratory Therapy Evaluate & Treat Comment: Physician Instructions: Evaluate and treat 07/04/20 11:12 Consult to Discharge Planning Routine Comment: Consult to Physical Therapy Evaluate & Treat Comment: Physician Instructions: pendulums, PROM 90 FF, 0 ER, 0 Abd, IR to body Consult to Respiratory Therapy Evaluate & Treat Comment: Physician Instructions: Evaluate and treat Discharge provider: Terence Jamil PA-C Summary Hospital Course Discharge Diagnosis: Instability of right total shoulder prosthesis Hospital Course: Procedure: Revision of right anatomic total shoulder to reverse total shoulder Same procedure as scheduled: Yes Indications: The patient is a 60-year-old woman who underwent an anatomic total shoulder replacement last November. She initially did well but then began to develop sensations of instability. Examination was not particularly remarkable for increased laxity however her radiographs did show anterior subluxation on the axillary view. This failed to respond to extensive attempts at non operative management with physical therapy and she has requested exploration and revision as indicated after discussion the risks benefits and alternatives and failure of non operative management. Risks discussed included but were not limited to: Failure to relieve symptoms, iatrogenic fracture, nerve damage, infection, deep venous thrombosis, pulmonary embolism, myocardial infarction, aspiration pneumonia, permanent paralysis and . Surgeon: Josias Garcia Anatomical Embalmer: Terence Jamil Anesthesia Type: General, Peripheral nerve block and Local Operative Notes Findings: Complete rupture of subscapularis tendon with increased anterior translation on laxity testing. Well-fixed humeral stem and glenoid. Closure Type: primary Specimen(s): other (The membrane from under the humeral head was sent for culture.) Prosthetic devices, grafts, tissues, transplants, or devices: Removed were the humeral head and the glenoid prosthesis. Implanted were an RSP glenoid base plate with a 30 mm screw length, 4 locking screws measuring 22, 18, 14 and 14 mm in length, a size 32-4 mm RSP glenoid head with retaining screw, an Altivate anatomic to RSP conversion shell as well as a 32 mm standard humeral socket insert. Applied: implant(s) Estimated Blood Loss (mL): 150 Blood products transfused: none Patient admitted for the above-mentioned procedure. Patient consented to the same. Patient taken to operating room underwent revision of right anatomic total shoulder to reverse total shoulder. Patient back in her room recovering well as in stable condition. Patient's pain is well controlled. Patient will be discharged home today. Patient will be allowed to do pendulum exercises and to use her hand in front of her torso below shoulder level. Status at Discharge Cognitive/behavioral status at discharge: at baseline, oriented Functional status at discharge: uses cane/walker Overall status at discharge: patient is progressing back to baseline Exam Vital Signs (past 8 hours): - 07/05/20 03:43 07/05/20 07:28 Temperature 97.8 F 97.0 F L Pulse Rate 85 72 Respiratory Rate 18 16 Blood Pressure 121/56 L 120/69 Pulse Oximetry 96 92 Oxygen Delivery Method Nasal Cannula,CPAP Oxygen Flow Rate 0 Narrative Exam Narrative: Pleasant female in no apparent distress. Dressing is clean, dry and intact. Motor functions intact distal right upper extremity. Sensation grossly intact to light touch. Objective Labs Result Diagrams: 07/05/20 05:05 Labs: Laboratory Results - last 24 hr 07/05/20 05:05 Hgb 11.0 L Hct 33.6 L PFSH Medical History (Updated 06/28/20 @ 07:21 by Hanna Lee RN) 2nd degree AV block Anxiety Arthritis Asthma Blindness and low vision Chest pain Cholecystitis Cholelithiasis Chronic venous stasis Depression Diverticulosis Edema Elevated LFTs Epigastric pain Fibromyalgia GERD (gastroesophageal reflux disease) Hearing impaired History of migraine History of UTI Hyperlipidemia Hypertension Kidney stones (~08/2014) Knee pain, right Long QT interval Long QT syndrome (~2018) Macular degeneration Migraines Multiple gastric polyps HARRIS (nonalcoholic steatohepatitis) Obese Optic neuritis Peptic ulcer disease Peripheral neuropathy PTSD (post-traumatic stress disorder) Renal insufficiency Seizures Sleep apnea with use of continuous positive airway pressure (CPAP) Type 2 diabetes mellitus Surgical History (Updated 06/27/20 @ 10:04 by Hanna Lee RN) History of arthroplasty of left knee (12/10/18) History of arthroplasty of right shoulder (11/30/19) History of carpal tunnel surgery of right wrist (02/24/20) History of colonoscopy History of liver biopsy (02/12/18) History of total left knee replacement Hx of arthroscopic knee surgery Hx of cholecystectomy (02/12/18) Hx of shoulder surgery Hx of tonsillectomy S/P right unicompartmental knee replacement (07/23/18) S/P rotator cuff repair Family History Other Adopted Social History household members: children occupational status: previously employed Smoking Status: Never smoker alcohol intake: never substance use type: does not use Discharge Assessment & Plan Assessment and Plan Assessment: Patient progressing as expected. Plan of Treatment: Discharge home today in stable condition. Patient will be allowed to do pendulum exercises in to use her hand in front of her torso be low shoulder level. Discharge Plan Discharge Plan Patient Disposition: Home Discharge orders & Medications Prescriptions: New acetaminophen 325 mg Tablet 650 mg PO TID Qty: 60 RF: 0 aspirin 81 mg Tablet,Delayed Release (Dr/Ec) 81 mg PO BID Qty: 60 RF: 0 oxycodone 5 mg Tablet 5 mg PO Q3HR PRN (Reason: Pain, Moderate (4-6)) Qty: 60 RF: 0 Continued furosemide 40 MG tablet 40 mg PO BID Qty: 0 RF: 0 benazepril 20 MG tablet 20 mg PO QDAY Qty: 0 RF: 0 epinephrine 0.3 MG/0.3 ML auto-injector 0.3 mg IM PRN PRN (Reason: Allergies) Qty: 0 RF: 0 Glucagon Emergency Kit (human) 1 MG kit 1 mg IJ PRN PRN (Reason: Hypoglycemia) Qty: 0 RF: 0 atorvastatin 80 MG tablet 80 mg PO HS Qty: 0 RF: 0 gabapentin [Neurontin] 300 MG capsule 600 mg PO SEEINSTR Qty: 0 RF: 0 pantoprazole 40 MG tablet,delayed release (DR/EC) 40 mg PO BID Qty: 0 RF: 0 metformin 1,000 mg Tablet 500 mg PO BID RF: 0 albuterol sulfate [Ventolin HFA] 90 mcg/actuation Hfa Aerosol Inhaler 2 puff INHALATION Q4H PRN (Reason: Asthma) RF: 0 multivitamin Capsule 1 cap PO DAILY Qty: 0 RF: 0 Toujeo Max U-300 SoloStar 300 unit/mL (3 mL) Insulin Pen 90 unit SUBCUT BEDTIME RF: 0 Bydureon 2 mg/0.65 mL Pen Injector 2 mg SUBCUT Q7D RF: 0 duloxetine 60 mg Capsule,Delayed Release(Dr/Ec) 120 mg PO DAILY RF: 0 naproxen sodium [Aleve] 220 mg Capsule 220 mg PO BID RF: 0 triazolam 0.25 mg Tablet 0.25 mg PO BEDTIME PRN (Reason: Sleep) RF: 0 potassium chloride 20 mEq Tablet Extended Release 20 meq PO DAILY RF: 0 Discontinued aspirin 81 mg Tablet 81 mg PO DAILY RF: 0 Follow up/Referrals: Bud Sheridan MD [Primary Care Provider] - Josias Garcia MD [Physician] - (Two weeks) Diet/Activity/Treatments Diet: Diet as Tolerated and Carb-consistent/Diabetic Activity: Per protocol Cold/Heat Therapy: Ice to shoulder as needed Skin/Wound/Dressing Care Report to your healthcare provider any signs of infection, such as:: chills, fever, increased pain, unusual drainage and unusual redness Dressing: Keep dressing clean and dry Visit Report/Discharge Packet Instructions: DI for Prescription Opioid Use, DI for Shoulder Replacement Stand Alone Forms: Surgery Discharge Discharge Data Primary Care Provider: Bud Sheridan Attending Provider: Josias Garcia
== END 2020-07-05 09:31 | disposition home or self-care (01) ==
LOC: OR 05:52 → AC 05:57
PROVIDERS: Admitting Provider Orthopaedic Surgery; PCP Internal Medicine; Referring Provider Internal Medicine; Visit Provider Orthopaedic Surgery
PROC: 0RQJ0ZZ Repair Right Shoulder Joint, Open Approach (ICD-10-PCS; CPT 23472; principal; 2020-07-04 07:45)
DX: T84.028A Dislocation of other internal joint prosthesis, initial encounter (principal); G47.30 Sleep apnea, unspecified; M19.011 Primary osteoarthritis, right shoulder; J45.909 Unspecified asthma, uncomplicated; I10 Essential (primary) hypertension; E78.5 Hyperlipidemia, unspecified; K21.9 Gastro-esophageal reflux disease without esophagitis; E66.9 Obesity, unspecified; H54.8 Legal blindness, as defined in USA; E11.9 Type 2 diabetes mellitus without complications; Z79.84 Long term (current) use of oral hypoglycemic drugs; Z68.42 Body mass index [BMI] 45.0-49.9, adult
CPT/HCPCS: 23474; 36415; 64450; 73020; 82962; 85014; 85018; 87070; 87075; 87077; 87186; 87205; 94640; 97161; 97535; C1776; G0378; A9270; J0690; J1100; J1885; J2250; J2405; J2704; J3010; J7613

== ENCOUNTER → 2021-02-22 08:31 | Outpatient (CLI) | payer OTHER, SELFPAY ==
[2020-07-04 11:13] VITALS: BMI 40.2
--- NOTE | 2021-02-22 | DI.MG.S_ITS ---
BILATERAL DIGITAL SCREENING MAMMOGRAM 3D/2D WITH CAD: 02/22/2021 CLINICAL: Routine screening. Comparison is made to exams dated: 02/09/2020 mammogram, 11/05/2018 mammogram, and 01/02/2018 mammogram - [facility]. There are scattered fibroglandular elements in both breasts. Current study was also evaluated with a Computer Aided Detection (CAD) system. There is a new irregular high density mass in the right breast at 11 o'clock middle depth. No other significant masses, calcifications, or other findings are seen in either breast. IMPRESSION: INCOMPLETE: NEEDS ADDITIONAL IMAGING EVALUATION The new irregular high density mass in the right breast is indeterminate. Additional views with possible ultrasound are recommended. This exam was interpreted at Station ID: [id number]. NOTE: For mammograms, a report in lay terms will be sent to the patient. Approximately 15% of breast malignancies will not be visualized mammographically. In the management of a palpable breast mass, a negative mammogram must not discourage biopsy of a clinically suspicious lesion. Electronically Signed By: Hilton Dunne M.D. jr/:02/23/2021 10:23:11 letter sent: Additional Imaging Needed ACR BI-RADS Category 0: Incomplete 3340F
== END ==
PROVIDERS: PCP Internal Medicine; Referring Provider Internal Medicine; Visit Provider Internal Medicine
DX: Z12.31 Encounter for screening mammogram for malignant neoplasm of breast (principal)
CPT/HCPCS: 77063; 77067

== ENCOUNTER → 2021-03-28 12:40 | Outpatient (CLI) | payer MEDICARE, SELFPAY ==
[2020-07-04 11:13] VITALS: BMI 40.2
--- NOTE | 2021-03-28 12:45 | DI.US.S_ITS ---
LIMITED ULTRASOUND OF RIGHT BREAST AND AXILLA: 03/28/2021 CLINICAL: Patient returns today to evaluate an asymmetry in the right breast. Comparison is made to exams dated: 03/28/2021 mammogram, 02/22/2021 mammogram, and 02/09/2020 [facility]. Color flow and real-time ultrasound of the right breast 10-11 o'clock, and axilla regions were performed on the areas of interest. There is a 2.3 cm x 0.7 cm x 1.2 cm oval mass with an indistinct margin in the right breast at 10:30 o'clock posterior depth. This oval mass is hypoechoic with posterior acoustic shadowing. Visualization limited due to depth of the mass. This likely correlates with mammography findings. Color flow imaging demonstrates that there is no vascularity present. No suspicious enlarged lymph nodes were seen sonographically in the right axilla. IMPRESSION: SUSPICIOUS OF MALIGNANCY The 2.3 cm x 0.7 cm x 1.2 cm oval mass in the right breast is suspicious of malignancy. An ultrasound guided biopsy is recommended. The findings were discussed with the patient at the conclusion of the study by Dr. Green. This exam was interpreted at Station ID: [id number]. Electronically Signed By: Chadd parson/:03/29/2021 12:42:49 letter sent: Biopsy Required Ultrasound BI-RADS: 4 Suspicious for malignancy
--- NOTE | 2021-03-28 12:45 | DI.MG.S_ITS ---
UNILATERAL RIGHT DIGITAL DIAGNOSTIC MAMMOGRAM 3D/2D WITH ADDITIONAL VIEWS: 03/28/2021 CLINICAL: Additional evaluation requested from prior study. Comparison is made to exams dated: 02/22/2021 mammogram, 02/09/2020 mammogram, 08/11/2019 mammogram, and 11/05/2018 mammogram - [facility]. There are scattered fibroglandular elements in right breast. There is an oval high density mass with an obscured and circumscribed margin in the right breast at 11 o'clock posterior depth. This is increased in size. No other significant masses or calcifications are seen in the breast. IMPRESSION: INCOMPLETE: NEEDS ADDITIONAL IMAGING EVALUATION The oval high density mass in the right breast is indeterminate. An ultrasound is recommended. Ultrasound will be performed immediately following the current exam. This exam was interpreted at Station ID: [id number]. NOTE: For mammograms, a report in lay terms will be sent to the patient. Approximately 15% of breast malignancies will not be visualized mammographically. In the management of a palpable breast mass, a negative mammogram must not discourage biopsy of a clinically suspicious lesion. Electronically Signed By: Chadd Singer M.D. [email or web address]/:03/28/2021 13:05:53 ACR BI-RADS Category 0: Incomplete 3340F
== END ==
PROVIDERS: PCP Internal Medicine; Referring Provider Internal Medicine; Visit Provider Internal Medicine
DX: N63.11 Unspecified lump in the right breast, upper outer quadrant (principal)
CPT/HCPCS: 76642; 77065; G0279

== ENCOUNTER → 2021-04-17 09:31 | Outpatient (CLI) | payer MEDICARE, SELFPAY ==
[2020-07-04 11:13] VITALS: BMI 40.2
--- NOTE | 2021-04-17 | DI.US.S_ITS ---
PROCEDURE: US BREAST RT LIMITED COMPARISON: None. INDICATIONS: BIOPSY CONSULT - RIGHT BREAST MASS FINDINGS: Patient was scheduled for ultrasound-guided biopsy of lesion in the 10:30 position of the right breast. Lesion could not be identified at the time of the biopsy the biopsy was canceled. Patient will be scheduled for stereotactic biopsy of the lesion in the right breast. IMPRESSION: Ultrasound-guided right breast biopsy canceled due to nonvisualization of previously identified lesion in the 10:30 position right breast. Patient should be scheduled for stereotactic biopsy of the lesion. BI-RADS 4 Dictated by: Tiffany Mann MD, PhD on 04/17/2021 at 12:31 Approved by: Tiffany Mann MD, PhD on 04/17/2021 at 12:34
--- NOTE | 2021-06-14 11:01 | ONC.SCHED ---
ONCOTYPE DX requisition and supporting documents faxed to [employer] at [phone]. (Pt has Medicare, no insurance auth required ref. #[id number])
== END ==
PROVIDERS: PCP Internal Medicine; Referring Provider Internal Medicine; Visit Provider Internal Medicine
DX: R92.8 Other abnormal and inconclusive findings on diagnostic imaging of breast (principal); N63.11 Unspecified lump in the right breast, upper outer quadrant
CPT/HCPCS: 76642; 77065

== ENCOUNTER → 2021-12-06 10:53 | Outpatient (CLI) | payer OTHER, SELFPAY ==
[2020-07-04 11:13] VITALS: BMI 40.2
--- NOTE | 2021-12-06 | DI.RAD.S_ITS ---
PROCEDURE: XR LUMBAR SPINE 2-3V INDICATIONS: unable to lift left great toe, r/o bony lesion of spine TECHNIQUE: 3 views of the lumbar spine were acquired. COMPARISON: [facility], CT, CT ABDOMEN PELVIS WITH CONTRAST, 08/22/2021, 14:39. FINDINGS: Bones: 5 [id number] vertebrae are present. There is normal bony alignment. No vertebral body compression fractures. No suspicious bony lesions. There are pars defects of L5. No suspicious lytic or sclerotic osseous lesions. Degenerative disc disease at L1-2, similar to prior CT. Soft tissues: Overlying bowel gas pattern is normal. No suspicious soft tissue calcifications. Status post cholecystectomy. IMPRESSION: 1. Degenerative disc disease of L1-2 and pars defects of L5. 2. No acute abnormality. 3. No suspicious bone lesions. Dictated by: Robbi Goldman M.D. on 12/06/2021 at 13:27 Approved by: Robbi Goldman M.D. on 12/06/2021 at 13:29
== END ==
PROVIDERS: PCP Internal Medicine; Referring Provider Physician Assistant; Visit Provider Physician Assistant
DX: M51.36 Other intervertebral disc degeneration, lumbar region (principal); R26.89 Other abnormalities of gait and mobility; R29.90 Unspecified symptoms and signs involving the nervous system
CPT/HCPCS: 72100

== ENCOUNTER 2022-02-11 16:43 | Emergency (ER) | payer OTHER, SELFPAY ==
[2021-12-27 10:38] VITALS: BMI 40.2
[2022-02-11 16:49] VITALS: BP 122/58; PULSE 118; RESP 20; TEMP 36.7; O2SAT 95; BMI 34.9
--- NOTE | 2022-02-11 16:49 | DI.RAD.S_ITS ---
PROCEDURE: XR CHEST 1V INDICATIONS: chest pain TECHNIQUE: One view of the chest was acquired. COMPARISON: [facility], , CHEST 1 VIEW, 09/19/2016, 16:38. FINDINGS: Surgical changes and devices: Right shoulder arthroplasty hardware is partially seen. Right axillary clips are seen. Lungs and pleura: On this semiupright portable chest examination, no large pneumothorax or large pleural effusions are seen. No focal infiltrates are seen. Mediastinum: Mediastinal contours appear normal. Heart size is normal. Bones and chest wall: No suspicious bony lesions. Age-appropriate bony degenerative changes are seen. Overlying soft tissues appear unremarkable. IMPRESSION: No acute cardiopulmonary process is seen. Postoperative and degenerative changes are seen. Dictated by: Jason Barrientos M.D. on 02/11/2022 at 16:44 Approved by: Jason Barrientos M.D. on 02/11/2022 at 16:45
[2022-02-11 17:53] LABS: Add Manual Diff / Slide Review NO; Basophils Absolute Auto 0 /uL (0-100); Basophils Percent Auto 0.1 % (0-2); Eosinophils Absolute Auto 100 /uL (0-450); Eosinophils Percent Auto 1.6 % (2-4); Hematocrit 34.4 % (36-46); Hemoglobin 11.5 g/dL (12.0-16.0); Lymphocytes Absolute Auto 900 /uL (1100-4500); Lymphocytes Percent Auto 15.9 % (25-40); Mean Corpuscular HGB Conc 33.5 % (30-36); Mean Corpuscular Hemoglobin 27.6 PG (26-34); Mean Corpuscular Volume 82.5 fL (80-100); Monocytes Absolute Auto 600 /uL (0-900); Monocytes Percent Auto 10.3 % (3-14); Neutrophils Absolute Auto 4000 /uL (1500-7000); Neutrophils Percent Auto 72.1 % (50-75); Platelet Count 217 X10^3/uL (150-400); Red Blood Cell Count 4.17 X10^6/uL (4.0-5.2); Red Cell Distribution Width 14.4 % (11.6-14.8); White Blood Cell Count 5.6 X10^3/uL (4.5-11.0)
[2022-02-11 18:03] LABS: Prothrombin Time 11.2 SECONDS (10.1-12.7)
--- NOTE | 2022-02-11 18:04 | ED.CHESTPAIN ---
HPI - Chest Pain General Chief Complaint: Chest Pain Stated Complaint: Chest pain Time Seen by Provider: 02/11/22 17:56 Source: patient Mode of arrival: Ambulatory Limitations: other History of Present Illness HPI narrative: Patient is a 61-year-old female history of PTSD anxiety diabetes presenting today with chest discomfort. She states that she was today started around 10:00 a.m. it starts on the left side radiates to the right side and through to her shoulder blades. It comes and goes without provocation or palliation. Last for couple of minutes. She has never had anything like this in the past. She feels like she can not take a deep breath. It does not actually hurt when you touch it. She has not taken anything for pain. She denies fever or chills. She has not had any nausea or vomiting Related Data Home Medications Medication Instructions Recorded Confirmed benazepril 20 mg tablet 20 mg PO QDAY ##0 11/21/11 01/30/22 epinephrine 0.3 mg/0.3 mL 0.3 mg IM PRN PRN Allergies ##0 11/21/11 01/30/22 injection, auto-injector furosemide 40 mg tablet 40 mg PO BID ##0 11/21/11 01/30/22 glucagon (human recombinant) 1 mg 1 mg IJ PRN PRN Hypoglycemia ##0 11/21/11 01/30/22 injection kit (Glucagon Emergency Kit (human-recomb)) atorvastatin 80 mg tablet 80 mg PO HS ##0 05/01/12 01/30/22 gabapentin 300 mg capsule 600 mg PO SEEINSTR ##0 06/12/16 01/30/22 (Neurontin) pantoprazole 40 mg tablet,delayed 40 mg PO BID ##0 09/19/16 01/30/22 release albuterol sulfate 90 mcg/actuation 2 puff inhalation Q4H PRN Asthma 01/29/18 01/30/22 aerosol inhaler (Ventolin HFA) insulin glargine U-300 conc 300 90 unit SUBCUT BEDTIME 01/29/18 01/30/22 unit/mL (3 mL) subcutaneous pen (Toujeo Max U-300 SoloStar) metformin 1,000 mg tablet 1,000 mg PO BID 01/29/18 01/30/22 multivitamin 1 cap PO DAILY ##0 01/29/18 01/30/22 exenatide microspheres 2 mg/0.65 2 mg SUBCUT Q7D 07/17/18 01/30/22 mL subcutaneous pen injector (ByLibriLoopreon) potassium chloride 20 mEq 20 meq PO DAILY 11/26/18 01/30/22 tablet,extended release duloxetine 60 mg capsule,delayed 120 mg PO DAILY 11/26/19 01/30/22 release fluocinolone 0.01 % topical body 1 applic topical TID 05/02/21 01/30/22 oil lamotrigine 100 mg tablet 100 mg PO DAILY 05/02/21 01/30/22 calcium 600 mg capsule 600 mg PO DAILY 07/19/21 01/30/22 cholecalciferol (vitamin D3) 10 400 unit DAILY 07/19/21 01/30/22 mcg (400 unit) capsule (Vitamin D3) acetaminophen 325 mg tablet 325 mg DAILY 10/10/21 01/30/22 (Tylenol) aspirin 81 mg tablet,delayed 81 mg PO DAILY 10/10/21 01/30/22 release doxepin 10 mg capsule 20 mg PO BEDTIME 10/10/21 01/30/22 ferrous sulfate 325 mg (65 mg 325 mg PO DAILY 10/10/21 01/30/22 iron) tablet zolpidem 5 mg tablet 5 mg PO BEDTIME PRN Insomnia 10/10/21 01/30/22 Previous Rx's Medication Instructions Recorded anastrozole 1 mg tablet 1 mg PO DAILY #90 tabs 10/10/21 Allergies Allergy/AdvReac Type Severity Reaction Status Date / Time bee venom protein (honey bee) Allergy Severe anaphylaxis Verified 01/30/22 09:30 [BEE VENOM PROTEIN (HONEY BEE)] chocolate flavor Allergy Severe anaphylaxis Verified 01/30/22 09:30 [CHOCOLATE FLAVOR] meclizine [MECLIZINE] Allergy Severe anaphylaxis Verified 01/30/22 09:30 pseudoephedrine Allergy Severe anaphylacti Verified 01/30/22 09:30 [From ACTIFED] c triprolidine [From ACTIFED] Allergy Severe anaphylacti Verified 01/30/22 09:30 c nickel Allergy Intermediate Rash, skin Verified 01/30/22 09:30 turns green povidone-iodine Allergy Mild rash Verified 01/30/22 09:30 [POVIDONE-IODINE] celecoxib [From Celebrex] AdvReac Severe Shuts my Verified 01/30/22 09:30 kidney down Review of Systems Review of Systems Narrative: GENERAL: Denies chills, fatigue, malaise, fever, sweats, travel HEENT: Denies sinus pain, ear pain, sore throat, difficulty swallowing, neck pain RESPIRATORY: Denies dyspnea, cough, wheezing, hemoptysis, sputum. CARDIOVASCULAR: See HPI GASTROINTESTINAL: Denies nausea, vomiting, abdominal pain, diarrhea, constipation, melena. : Denies dysuria, frequency, incontinence, hematuria, urinary retention, flank pain. MUSCULOSKELETAL: Denies weakness, joint pain, or bony pain SKIN: No rash, no erythema, no pruritus NEUROLOGIC: Denies weakness, dizziness, headache, numbness, change in speech, confusion PSYCHIATRIC: No concerning psychosocial issues. 12 point review of systems is negative except for those stated above and HPI Patient History Medical History (Updated 02/11/22 @ 21:05 by Kristyn Cain DO) 2nd degree AV block Anxiety Arthritis Asthma Blindness and low vision Chest pain Cholecystitis Cholelithiasis Chronic venous stasis Depression Diverticulosis Edema Elevated LFTs Epigastric pain Fibromyalgia GERD (gastroesophageal reflux disease) Hearing impaired History of migraine History of urinary tract infection History of UTI Hyperlipidemia Hypertension Incomplete emptying of bladder Incontinence in female Kidney stones (~08/2014) Knee pain, right Long QT interval Long QT syndrome (~2018) Macular degeneration Migraines Multiple gastric polyps HARRIS (nonalcoholic steatohepatitis) Obese Optic neuritis Peptic ulcer disease Peripheral neuropathy PTSD (post-traumatic stress disorder) Renal insufficiency Seizures Sleep apnea with use of continuous positive airway pressure (CPAP) Type 2 diabetes mellitus Surgical History History of arthroplasty of left knee (12/10/18) History of arthroplasty of right shoulder (11/30/19) History of carpal tunnel surgery of right wrist (02/24/20) History of colonoscopy History of liver biopsy (02/12/18) History of total left knee replacement Hx of arthroscopic knee surgery Hx of cholecystectomy (02/12/18) Hx of shoulder surgery Hx of tonsillectomy S/P right unicompartmental knee replacement (07/23/18) S/P rotator cuff repair Family History Other Adopted Social History household members: children occupational status: previously employed Smoking Status: Never smoker alcohol intake: never substance use type: does not use Smoking Status: Never smoker Substance Use Type: does not use Exam Initial Vital Signs Initial Vital Signs: Vital Signs Temperature 98.1 F 02/11/22 16:49 Pulse Rate 118 H 02/11/22 16:49 Respiratory Rate 20 02/11/22 16:49 Blood Pressure 122/58 L 02/11/22 16:49 Pulse Oximetry 95 02/11/22 16:49 Oxygen Delivery Method 02/11/22 16:49 GENERAL: Alert pleasant 61-year-old female and in no acute distress. HEENT: Head atraumatic,EOMI, pupils reactive, face symmetric, moist mucous membranes CARDIOVASCULAR: Mildly tachycardic without murmur, to touch reproducible RESPIRATORY: Breath sounds equal bilaterally, no wheezes rales or rhonchi. ABDOMEN: Soft, nontender. Normoactive bowel sounds all 4 quadrants. No guarding or rebound. EXTREMITIES: Normal range of motion, no clubbing or edema. Neurovascularly intact NEUROLOGICAL: Alert and oriented x4.Normal gait and speech. SKIN: Warm, dry, no laceration, no petechiae, no rashes or lesions. Scores HEART Score Heart Score history: Moderately Suspicious Heart Score EKG: Normal Heart Score Age: 45-64 years old Heart Score risk factors: > 3 risk factors or hx of atherosclerotic disease Heart Score troponin: < or = to normal limit Heart Score Total: 4 Course Orders Ordered: Discontinued Medications Aspirin (Aspirin 81 Mg Chew Tab) 324 mg PO NOW ONE Stop: 02/11/22 18:03 Last Admin: 02/11/22 18:19 Dose: 324 mg Documented By: NR Ketorolac Tromethamine (Ketorolac 30 Mg/Ml Vial) 15 mg IV NOW ONE Stop: 02/11/22 21:30 Last Admin: 02/11/22 21:30 Dose: 15 mg Documented By: ROE Nitroglycerin (Nitroglycerin 0.4 Mg Sl Tab) 0.4 mg SL [id number] PRN PRN Reason: Chest Pain Last Admin: 02/11/22 18:21 Dose: 0.4 mg Documented By: NR Vital Signs Vital signs: Vital Signs - 8 hr 02/11/22 21:49 Temperature 97.8 F Pulse Rate 84 Respiratory Rate 18 Blood Pressure 119/56 L Pulse Oximetry 98 Oxygen Delivery Method Room Air MDM - Chest Pain Lab Data Result diagrams: 02/11/22 17:28 02/11/22 17:28 Labs: Lab Results 02/11/22 02/11/22 02/11/22 Range/Units 17:15 17:28 17:28 WBC 5.6 (4.5-11.0) X10^3/uL RBC 4.17 (4.0-5.2) X10^6/uL Hgb 11.5 L (12.0-16.0) g/dL Hct 34.4 L (36-46) % MCV 82.5 (80-100) fL MCH 27.6 (26-34) PG MCHC 33.5 (30-36) % RDW 14.4 (11.6-14.8) % Plt Count 217 (150-400) X10^3/uL Neut % (Auto) 72.1 (50-75) % Lymph % (Auto) 15.9 L (25-40) % Jerome % (Auto) 10.3 (3-14) % Eos % (Auto) 1.6 L (2-4) % Baso % (Auto) 0.1 (0-2) % Neut # (Auto) 4000 (6609-6050) /uL Lymph # (Auto) 900 L (5936-9514) /uL Jerome # (Auto) 600 (0-900) /uL Eos # (Auto) 100 (0-450) /uL Baso # (Auto) 0 (0-100) /uL PT 11.2 (10.1-12.7) SECONDS INR 1.0 (0.9-1.3) APTT 34 (26-36) SECONDS D-Dimer (<500) ng/ml Sodium (137-145) mmol/L Potassium (3.4-5.1) mmol/L Chloride (98-107) mmol/L Carbon Dioxide (22-32) mmol/L BUN (7-17) mg/dL Creatinine (0.52-1.04) mg/dL Estimated GFR (>60) mL/min BUN/Creatinine Ratio (6-22) Glucose (80-110) mg/dL Calcium (8.4-10.2) mg/dL Magnesium (1.6-2.3) mg/dL Total Bilirubin (0.2-1.3) mg/dL AST (14-36) IU/L ALT (<35) IU/L Alkaline Phosphatase (38-126) U/L Total Creatine Kinase (30-135) U/L CK-MB (CK-2) CK-MB (CK-2) Rel Index Troponin I (0.01-0.034) ng/mL Total Protein (6.3-8.2) g/dL Albumin (3.5-5.0) g/dL Globulin (1.7-4.1) g/dL Albumin/Globulin Ratio (1.0-2.8) Lipase (23-300) U/L SARS-CoV-2 (PCR) Negative (Negative) Influenza A (RT-PCR) Flu a negative (NEGATIVE) Influenza B (RT-PCR) Flu b negative (NEGATIVE) RSV (PCR) Negative (Negative) 02/11/22 02/11/22 02/11/22 Range/Units 17:28 17:28 19:27 WBC (4.5-11.0) X10^3/uL RBC (4.0-5.2) X10^6/uL Hgb (12.0-16.0) g/dL Hct (36-46) % MCV (80-100) fL MCH (26-34) PG MCHC (30-36) % RDW (11.6-14.8) % Plt Count (150-400) X10^3/uL Neut % (Auto) (50-75) % Lymph % (Auto) (25-40) % Jerome % (Auto) (3-14) % Eos % (Auto) (2-4) % Baso % (Auto) (0-2) % Neut # (Auto) (9468-5446) /uL Lymph # (Auto) (3621-7750) /uL Jerome # (Auto) (0-900) /uL Eos # (Auto) (0-450) /uL Baso # (Auto) (0-100) /uL PT (10.1-12.7) SECONDS INR (0.9-1.3) APTT (26-36) SECONDS D-Dimer 816 H (<500) ng/ml Sodium 138 (137-145) mmol/L Potassium 4.2 (3.4-5.1) mmol/L Chloride 96 L (98-107) mmol/L Carbon Dioxide 26 (22-32) mmol/L BUN 27 H (7-17) mg/dL Creatinine 1.32 H (0.52-1.04) mg/dL Estimated GFR 46 L (>60) mL/min BUN/Creatinine Ratio 20.5 (6-22) Glucose 104 (80-110) mg/dL Calcium 9.9 (8.4-10.2) mg/dL Magnesium 1.7 (1.6-2.3) mg/dL Total Bilirubin 0.5 (0.2-1.3) mg/dL AST 70 H (14-36) IU/L ALT 86 H (<35) IU/L Alkaline Phosphatase 66 (38-126) U/L Total Creatine Kinase 63 (30-135) U/L CK-MB (CK-2) TNP CK-MB (CK-2) Rel Index TNP Troponin I < 0.012 < 0.012 (0.01-0.034) ng/mL Total Protein 7.4 (6.3-8.2) g/dL Albumin 4.3 (3.5-5.0) g/dL Globulin 3.1 (1.7-4.1) g/dL Albumin/Globulin Ratio 1.4 (1.0-2.8) Lipase 174 (23-300) U/L SARS-CoV-2 (PCR) (Negative) Influenza A (RT-PCR) (NEGATIVE) Influenza B (RT-PCR) (NEGATIVE) RSV (PCR) (Negative) Imaging Data Chest x-ray: Radiologist's Impression: XRay Report Signed Patient: Kimberly Lion MR#: [id number] : 1960 Acct:[id number] Age/Sex: 61 / F Date of Service: 02/11/22 Loc: ED Accession Number: [id number] ?? Procedure: XR chest 1V Ordering Provider: Carole Nguyen D.O. PROCEDURE:? XR CHEST 1V ? INDICATIONS:? chest pain ? TECHNIQUE:? One view of the chest was acquired.? ? COMPARISON:? [facility], CHEST 1 VIEW, 09/19/2016, 16:38. ? FINDINGS:? ? Surgical changes and devices:? Right shoulder arthroplasty hardware is partially seen.? Right axillary clips are seen. ? Lungs and pleura:? On this semiupright portable chest examination, no large pneumothorax or large pleural effusions are seen.? No focal infiltrates are seen.? ? Mediastinum:? Mediastinal contours appear normal.? Heart size is normal.? ? Bones and chest wall:? No suspicious bony lesions.? Age-appropriate bony degenerative changes are seen.? ? Overlying soft tissues appear unremarkable.? ? ? IMPRESSION:? ? No acute cardiopulmonary process is seen.? ? Postoperative and degenerative changes are seen.? ? ? Dictated by: Jason Barrientos M.D. on 02/11/2022 at 16:44? CT scan - chest: Radiologist's Impression: CT Scan Report Signed Patient: Kimberly Lion MR#: [id number] : 1960 Acct:[id number] Age/Sex: 61 / F Date of Service: 02/11/22 Loc: ED Accession Number: [id number] ?? Procedure: CT angio chest PE protocol Ordering Provider: Kristyn Cain D.O. PROCEDURE:? CT ANGIO CHEST PE PROTOCOL ? INDICATIONS:? chest pain + dimer ? TECHNIQUE:? After the administration of intravenous contrast, 2 mm thick sections acquired from the pulmonary apices to the posterior costophrenic angles.? 3-dimensional maximum intensity projection (MIP) coronal and sagittal reformats were then acquired through the thorax.? For radiation dose reduction, the following was used:? automated exposure control, adjustment of mA and/or kV according to patient size.? ? COMPARISON:? [facility], CT, CT CHEST ABDOMEN PELVIS WITH CONTRAST, 06/30/2021, 12:44. ? FINDINGS:? Image quality:? There is metallic streak artifact from patient's right shoulder prosthesis.? Mild motion artifact is also present limiting evaluation. ? Pulmonary arteries:? Pulmonary arteries are normal in size, and demonstrate no intraluminal filling defects to suggest central pulmonary embolism.? Evaluation of subsegmental pulmonary arteries limited by motion artifact.? ? Lower Neck: No lymphadenopathy by size criteria. Thyroid:? Visualized thyroid is heterogeneous in appearance, but evaluation is limited by streak artifact. Axillae: No lymphadenopathy by size criteria. Chest Wall:? There are surgical clips within the right chest wall. Bones: Visualized osseous structures demonstrate no suspicious lesions. ? Lungs and Airways:? No acute consolidation.? There is mild dependent atelectasis.? Subpleural scarring is demonstrated anteriorly within the right upper lobe suggestive of radiation pneumonitis.? The trachea and central airways are patent. Pleura: No pneumothorax or pleural effusions.? ? Heart: Heart size is normal.? No pericardial effusion. Thoracic Vessels: The thoracic aorta is normal in size.? Mediastinum and Merlyn: No lymphadenopathy by size criteria. Esophagus: No wall thickening.? There is a small hiatal hernia. ? Abdomen:? Visualized upper abdomen demonstrates surgical absence of the gallbladder. ? IMPRESSION:? ? 1. No evidence of central pulmonary embolism, with evaluation of distal subsegmental pulmonary arteries limited by motion artifact. ? 2. No acute airspace consolidation.? ? ? Dictated by: Chadd Singer M.D. on 02/11/2022 at 20:0 ECG Data Interpretation: Sinus tachycardia rate 115 p.r. interval 136 QRS 6 QTC 411 no T-wave inversions no ST elevations or depressions previous EKG from 2017 [facility] Narrative Medical decision making narrative: Patient presenting today with chest pain with a moderate heart score. 2- troponins normal EKG. CT angio is also negative she had mildly elevated dimer of 816. Discussion with patient about admission for stress test tomorrow. Cannot completely rule out heart. Is really reproducible with palpation. Although she says that a slightly different pain. At this time she does not want to stay for a stress test. 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 She also understands that she may go and . However due to reproducible pain does not quite fit cardiac. Although she has multiple risk factors. The patient is clinically sober, free from distracting injury, appears to have intact insight, judgment and reason. Does not meet criteria for involuntary hospitalization. Patient has the capacity to make decisions. The patient is also not under any duress to leave the hospital. In this scenario, it would be battery to subject the patient to treatment against his/her will. I have voiced my concerns for the patient's health given that a full evaluation and treatment had not occurred. I have discussed the need for continued evaluation to determine if there symptoms are caused by a condition that present risk of or morbidity. Risk including but not limited to , permanent disability, prolonged hospitalization, prolonged illness, were discussed. I tried offering alternative options in hopes that the patient might be amenable to partial evaluation and treatment which would be medically beneficial to the patient, though the patient declined my options and insisted on leaving. Because I have been unable to convince the patient to stay I answered all of their questions about the condition and ask them to return to the ED as soon as possible to complete their evaluation, especially if their symptoms worsen or do not improve. I emphasized that leaving against medical advice did not preclude returning here for further evaluation. I asked the patient to return if they change their mind about the further evaluation and treatment. I strongly encouraged the patient to return to this emergency department or any emergency department at any time, particularly with worsening symptoms. Discharge Plan Departure Patient Disposition: Home Clinical Impression: Atypical chest pain Instructions: DI for Atypical Chest Pain Activity Restrictions/Additional Instructions: *You have been diagnosed with atypical chest pain *What to do: At this time your offered admission to the hospital for stress test and echocardiogram. I strongly encourage you to talk to her primary care provider you need to have these tests done. Your heart has not been completely ruled out for heart attack or heart disease. If you should have worsening pain please call 911 and return to the emergency department *Continue to take medications as directed Aspirin 81 mg daily *Follow up with your primary care provider in 2-3 days or call [phone] *Return to ER if you should have increasing chest pain shortness of breath or any new, worsening or concerning symptoms Prescriptions: No Action furosemide 40 MG tablet 40 mg PO BID Qty: 0 benazepril 20 MG tablet 20 mg PO QDAY Qty: 0 epinephrine 0.3 MG/0.3 ML auto-injector 0.3 mg IM PRN PRN (Reason: Allergies) Qty: 0 Glucagon Emergency Kit (human) 1 MG kit 1 mg IJ PRN PRN (Reason: Hypoglycemia) Qty: 0 atorvastatin 80 MG tablet 80 mg PO HS Qty: 0 gabapentin [Neurontin] 300 MG capsule 600 mg PO SEEINSTR Qty: 0 Rx Instructions: 600mg bid, 900mg bedtime pantoprazole 40 MG tablet,delayed release (DR/EC) 40 mg PO BID Qty: 0 metformin 1,000 mg Tablet 1,000 mg PO BID albuterol sulfate [Ventolin HFA] 90 mcg/actuation Hfa Aerosol Inhaler 2 puff INHALATION Q4H PRN (Reason: Asthma) multivitamin Capsule 1 cap PO DAILY Qty: 0 Toujeo Max U-300 SoloStar 300 unit/mL (3 mL) Insulin Pen 90 unit SUBCUT BEDTIME Label Comments: pt took full dose last pm Rx Instructions: Please confirm which Toujeo Bydureon 2 mg/0.65 mL Pen Injector 2 mg SUBCUT Q7D Rx Instructions: Every Saturday duloxetine 60 mg Capsule,Delayed Release(Dr/Ec) 120 mg PO DAILY fluocinolone 0.01 % Oil 1 applic TOPICAL TID lamotrigine 100 mg Tablet 100 mg PO DAILY calcium 600 mg Capsule 600 mg PO DAILY cholecalciferol (vitamin D3) [Vitamin D3] 10 mcg (400 unit) Capsule 400 unit DAILY acetaminophen [Tylenol] 325 mg Tablet 325 mg DAILY doxepin 10 mg Capsule 20 mg PO BEDTIME ferrous sulfate 325 mg (65 mg iron) Tablet 325 mg PO DAILY zolpidem 5 mg Tablet 5 mg PO BEDTIME PRN (Reason: Insomnia) aspirin 81 mg tablet,delayed release (DR/EC) 81 mg PO DAILY anastrozole 1 mg Tablet 1 mg PO DAILY Qty: 90 3RF potassium chloride 20 mEq Tablet Extended Release 20 meq PO DAILY Referrals: Violeta Roman MD [Primary Care Provider] - Visit Report Forms: Patient Portal/API
[2022-02-11 18:05] LABS: PTT Partial Thromboplastin Tim 34 SECONDS (26-36)
[2022-02-11 18:07] LABS: Alanine Aminotransferase 86 IU/L (<35); Albumin 4.3 g/dL (3.5-5.0); Albumin Globulin Ratio 1.4 (1.0-2.8); Alkaline Phosphatase 66 U/L (38-126); Aspartate Aminotransferase 70 IU/L (14-36); BUN Creatinine Ratio 20.5 (6-22); Bilirubin Total 0.5 mg/dL (0.2-1.3); Blood Urea Nitrogen 27 mg/dL (7-17); Calcium 9.9 mg/dL (8.4-10.2); Carbon Dioxide 26 mmol/L (22-32); Chloride 96 mmol/L (98-107); Creatine Kinase 63 U/L (30-135); Estimated Glomerular Filt Rate 46 mL/min (>60); Globulin 3.1 g/dL (1.7-4.1); Glucose 104 mg/dL (80-110); HEMOLYSIS < 15 (0-50); Lipase 174 U/L (23-300); Magnesium 1.7 mg/dL (1.6-2.3); Potassium 4.2 mmol/L (3.4-5.1); Sodium 138 mmol/L (137-145); Total Protein 7.4 g/dL (6.3-8.2)
[2022-02-11 18:18] LABS: D Dimer 816 ng/ml (<500)
[2022-02-11 18:19] LABS: Troponin I < 0.012 ng/mL (0.01-0.034)
[2022-02-11] MEDS: ASPIRIN 81 MG CHEW TAB 324 MG PO (18:19)
[2022-02-11 18:21] VITALS: BP 131/63; PULSE 111
[2022-02-11] MEDS: NITROGLYCERIN 0.4 MG SL TAB SL (18:21)
[2022-02-11 18:30] LABS: Influenza A - CEPHEID Flu A NEGATIVE (NEGATIVE); Influenza B - CEPHEID Flu B NEGATIVE (NEGATIVE); Respiratory Syncytial Virus Negative (Negative)
[2022-02-11 18:32] LABS: COVID-19 CEPHEID 4-PLEX PCR Negative (Negative)
--- NOTE | 2022-02-11 18:34 | PC.NURSE ---
after one dose of nitro pt bp went from 135/63 down to 105/55. chest pain was unchanged. spoke with providers about this, and verbal order to hold nitro.
--- NOTE | 2022-02-11 19:31 | DI.CT.S_ITS ---
PROCEDURE: CT ANGIO CHEST PE PROTOCOL INDICATIONS: chest pain + dimer TECHNIQUE: After the administration of intravenous contrast, 2 mm thick sections acquired from the pulmonary apices to the posterior costophrenic angles. 3-dimensional maximum intensity projection (MIP) coronal and sagittal reformats were then acquired through the thorax. For radiation dose reduction, the following was used: automated exposure control, adjustment of mA and/or kV according to patient size. COMPARISON: [facility], CT, CT CHEST ABDOMEN PELVIS WITH CONTRAST, 06/30/2021, 12:44. FINDINGS: Image quality: There is metallic streak artifact from patient's right shoulder prosthesis. Mild motion artifact is also present limiting evaluation. Pulmonary arteries: Pulmonary arteries are normal in size, and demonstrate no intraluminal filling defects to suggest central pulmonary embolism. Evaluation of subsegmental pulmonary arteries limited by motion artifact. Lower Neck: No lymphadenopathy by size criteria. Thyroid: Visualized thyroid is heterogeneous in appearance, but evaluation is limited by streak artifact. Axillae: No lymphadenopathy by size criteria. Chest Wall: There are surgical clips within the right chest wall. Bones: Visualized osseous structures demonstrate no suspicious lesions. Lungs and Airways: No acute consolidation. There is mild dependent atelectasis. Subpleural scarring is demonstrated anteriorly within the right upper lobe suggestive of radiation pneumonitis. The trachea and central airways are patent. Pleura: No pneumothorax or pleural effusions. Heart: Heart size is normal. No pericardial effusion. Thoracic Vessels: The thoracic aorta is normal in size. Mediastinum and Merlyn: No lymphadenopathy by size criteria. Esophagus: No wall thickening. There is a small hiatal hernia. Abdomen: Visualized upper abdomen demonstrates surgical absence of the gallbladder. IMPRESSION: 1. No evidence of central pulmonary embolism, with evaluation of distal subsegmental pulmonary arteries limited by motion artifact. 2. No acute airspace consolidation. Dictated by: Chadd Singer M.D. on 02/11/2022 at 20:07 Approved by: Chadd Singer M.D. on 02/11/2022 at 20:14
[2022-02-11 20:12] LABS: Troponin I < 0.012 ng/mL (0.01-0.034)
[2022-02-11 20:15] VITALS: BP 114/57; PULSE 104; RESP 17; O2SAT 96
[2022-02-11] MEDS: KETOROLAC 30 MG/ML VIAL 15 MG IV (21:30)
[2022-02-11 21:49] VITALS: BP 119/56; PULSE 84; RESP 18; TEMP 36.6; O2SAT 98
== END 2022-02-11 21:35 | disposition home or self-care (01) ==
PROVIDERS: Emergency Medicine; Emergency Provider Emergency Medicine; PCP Internal Medicine
DX: R07.89 Other chest pain (principal); Z20.822 Contact with and (suspected) exposure to COVID-19
CPT/HCPCS: 0241U; 36415; 71045; 71275; 80053; 82550; 83690; 83735; 84484; 85025; 85379; 85610; 85730; 93005; 93010; 96374; 99284; J1885; Q9967

== ENCOUNTER → 2022-03-14 09:48 | Outpatient (CLI) | payer OTHER, SELFPAY ==
[2021-12-27 10:38] VITALS: BMI 40.2
--- NOTE | 2022-03-14 | DI.NM.S_ITS ---
PROCEDURE: NM DEEPTI PERF SPECT R&S PHARM Rest and pharmacological stress myocardial perfusion SPECT with gated imaging and ejection fraction RADIOPHARMACEUTICAL: 26.4 mCi Tc-99m tetrafosmin IV at rest and 25.8 mCi Tc-99m tetrafosmin IV at peak effect of pharmacological stress. [id number] was performed. INDICATIONS: CHEST PAIN TECHNIQUE: Radiopharmaceutical was injected at peak stress test, and also at rest. SPECT images were obtained. SPECT myocardial perfusion images were displayed in short axis, horizontal long axis, and vertical long axis views. Gated images were reviewed using Tales2Go software. COMPARISON: None. CARDIAC STRESS: A pharmacologic stress test was performed under the supervision of an attending staff, using an infusion of lexiscan 0.4mg IV X1. Hemodynamic data: There is normal blood pressure and heart rate response to pharmacologic stress. Symptoms: The patient denied anginal chest pain. Aminophylline: none EKG: No diagnostic changes of ischemia; no ectopy. FINDINGS: Raw data: There is good myocardial uptake of radiotracer. No significant motion artifacts. Left ventricle function: Gated images demonstrate normal left ventricular wall thickening. No segmental wall motion abnormalities. No transient ischemic dilation; TID is 0.88 (normal less than 1.3). Left ventricle resting end diastolic volume is 92 mL. Left ventricle stress ejection fraction is 94%; normal range is above 45%. Myocardial perfusion: There is a mildly intense fixed apical defect that improves significantly with prone imaging, suggesting apical thinning artifact. No ischemia and no definite infarction. IMPRESSION: Low risk, probably normal pharm nuclear stress test 1) Mildly intense fixed apical defect that improves significantly with prone imaging, suggesting apical thinning artifact. No ischemia and no definite infarction. 2) Normal left ventricular size, wall motion, and systolic function (EF post stress 94%). 3) No ST changes with lexiscan. 4) No angina during the study. 5) Compared to the nuclear stress test done 01/13/2015, no significant change. Dictated by: Darinaa Vázquez MD on 03/15/2022 at 12:18 Approved by: Dariana Vázquez MD on 03/15/2022 at 12:21
[2022-03-14 11:04] LABS: COVID19 -Nasal RAPID Negative (Negative)
== END ==
PROVIDERS: PCP Internal Medicine; Referring Provider Internal Medicine; Visit Provider Internal Medicine
DX: R07.9 Chest pain, unspecified (principal); Z20.822 Contact with and (suspected) exposure to COVID-19
CPT/HCPCS: 78452; 87635; 93017; A9502; J2785

== ENCOUNTER → 2022-03-15 07:05 | Outpatient (CLI) | payer OTHER, SELFPAY ==
[2021-12-27 10:38] VITALS: BMI 40.2
--- NOTE | 2022-03-15 | DI.ECHO.S_ITS ---
[place] [facility]---------+ [facility] +---------+ : : [address] : : : : [id number] : : : : Phone: [phone]+ Echocardiogram Report + + :Name: ISABELLA BERNARDO Study Date: 03/15/2022 Height: 63 in : :[facility] ReadingLocation: Weight: 190 lb : : Gender: Female BSA: 1.9 m2 : :: 1960 Age: 62 yrs BP: 132/80 mmHg: :Reason For Study: Chest Pain : :Ordering Physician: JOSEE, : :BEN Performed By: Domonique Levin : :Referring: BEN TRIPP : + + Interpretation Summary The ejection fraction is estimated to be 65-70%. Diastolic parameters suggest probable normal left ventricular diastolic function and normal filling pressures. The right ventricle is normal in size and function. No significant valvular abnormalities. Pulmonary artery pressures cannot be estimated because of the lack of a measurable TR jet velocity. Procedure: A two-dimensional transthoracic echocardiogram with color flow and Doppler was performed. The patient was in sinus tachycardia with heart rates between 94-101 bpm during the exam. Left Ventricle: The left ventricle is normal in size and wall thickness. The ejection fraction is estimated to be 65-70%. Diastolic parameters suggest probable normal left ventricular diastolic function and normal filling pressures. Right Ventricle: The right ventricle is normal in size and function. Atria: Borderline left atrial enlargement. The right atrium is normal in size. There is no Doppler evidence for an interatrial shunt. Mitral Valve: The mitral valve is normal in structure and function. There is no mitral regurgitation noted. Aortic Valve: The aortic valve is trileaflet. The aortic valve is mildly calcified. There is no aortic valve stenosis. No aortic regurgitation is present. Tricuspid Valve: The tricuspid valve is normal in structure and function. Pulmonary artery pressures cannot be estimated because of the lack of a measurable TR jet velocity. No tricuspid regurgitation. Pulmonic Valve: The pulmonic valve leaflets are thin and pliable; valve motion is normal. There is mild pulmonic regurgitation. Great Vessels: The aortic root is normal size. The dimensions of the ascending aorta are normal. The IVC is of normal diameter and collapses greater than 50% with a sniff. This suggests a low right atrial pressure of 3 mm Hg. Pericardium/ Pleura There is no pericardial effusion. There is no pleural effusion. MMode/2D Measurements & Calculations LVIDd: 4.3 cm LVOT diam: 2.1 cm LVIDs: 2.3 cm Ao root diam: 3.2 cm FS: 46.5 % asc Aorta Diam: 3.1 cm EPSS: 0.30 cm IVSd: 1.0 cm LVPWd: 1.0 cm LV aparicio. diameter/BSA (cm/m^2): 2.3 LV sys. diameter/BSA (cm/m^2): 1.2 LA dimension: 3.9 cm RA long axis: 4.7 cm LA A2 area: 15.3 cm2 RA area: 16.1 cm2 LA A4 area: 20.5 cm2 RA vol: 47.0 ml LA length (vol): 4.5 cm RA : 24.8 ml/m2 LA vol: 59.0 ml LA vol index: 31.2 ml/m2 LVLs ap4: 5.3 cm LVLd ap2: 7.0 cm LVLs ap2: 5.3 cm TAPSE_phl: 2.7 cm Doppler Measurements & Calculations Ao V2 max: 257.0 cm/sec LVOT Max Rinku: 136.0 cm/sec Ao V2 mean: 184.0 cm/sec LV V1 max P.4 mmHg Ao max P.0 mmHg LV V1 VTI: 27.4 cm Ao mean P.0 mmHg [place](I,D): 2.2 cm2 Ao V2 VTI: 42.5 cm [place](V,D): 1.8 cm2 sev ratio: 0.64 [place] indexed to BSA (cm^2/m^2): 1.2 MV E max rinku: 106.0 cm/sec PA V2 max: 146.0 cm/sec MV A max rinku: 135.0 cm/sec PA V2 mean: 96.2 cm/sec MV E/A: 0.79 PA mean P.0 mmHg Med Peak E' Rinku: 6.7 cm/sec E/E' med: 15.9 Lat Peak E' Rinku: 8.7 cm/sec E/E' lat: 12.2 E/e' average: 14.0 MV dec time: 0.21 sec MVA(VTI): 3.6 cm2 MV V2 mean: 99.6 cm/sec SV(LVOT): 94.9 ml MV mean P.0 mmHg MV V2 VTI: 26.2 cm AV VR_phl: 0.53 [place](VTI)/BSA_phl: 1.2 Reading Physician:07:25 PM
== END ==
PROVIDERS: PCP Internal Medicine; Referring Provider Internal Medicine; Visit Provider Internal Medicine
DX: R07.9 Chest pain, unspecified (principal); I37.1 Nonrheumatic pulmonary valve insufficiency
CPT/HCPCS: 93306

== ENCOUNTER 2022-03-28 12:25 | Emergency (ER) | payer OTHER, SELFPAY ==
[2021-12-27 10:38] VITALS: BMI 40.2
[2022-03-28 12:34] VITALS: BP 141/76; PULSE 111; RESP 16; TEMP 37.1; O2SAT 98; BMI 30.9
[2022-03-28 13:13] LABS: INR 1.1 (0.9-1.3); Prothrombin Time 12.1 SECONDS (10.1-12.7)
[2022-03-28 13:20] LABS: Add Manual Diff / Slide Review NO; Basophils Absolute Auto 0 /uL (0-100); Basophils Percent Auto 0.2 % (0-2); Eosinophils Absolute Auto 100 /uL (0-450); Eosinophils Percent Auto 2.5 % (2-4); Hematocrit 33.9 % (36-46); Hemoglobin 11.2 g/dL (12.0-16.0); Lymphocytes Absolute Auto 1000 /uL (1100-4500); Lymphocytes Percent Auto 22.1 % (25-40); Mean Corpuscular HGB Conc 32.9 % (30-36); Mean Corpuscular Hemoglobin 27.2 PG (26-34); Mean Corpuscular Volume 82.6 fL (80-100); Monocytes Absolute Auto 600 /uL (0-900); Monocytes Percent Auto 12.8 % (3-14); Neutrophils Absolute Auto 2700 /uL (1500-7000); Neutrophils Percent Auto 62.4 % (50-75); Platelet Count 203 X10^3/uL (150-400); Red Cell Distribution Width 14.1 % (11.6-14.8); White Blood Cell Count 4.3 X10^3/uL (4.5-11.0)
[2022-03-28 13:23] LABS: Alanine Aminotransferase 103 IU/L (<35); Alkaline Phosphatase 81 U/L (38-126); Aspartate Aminotransferase 79 IU/L (14-36); BUN Creatinine Ratio 20.5 (6-22); Bilirubin Total 0.5 mg/dL (0.2-1.3); Blood Urea Nitrogen 16 mg/dL (7-17); Calcium 9.5 mg/dL (8.4-10.2); Carbon Dioxide 26 mmol/L (22-32); Chloride 99 mmol/L (98-107); Estimated Glomerular Filt Rate > 60 mL/min (>60); Glucose 65 mg/dL (80-110); Lipase 175 U/L (23-300); Potassium 4.6 mmol/L (3.4-5.1); Sodium 136 mmol/L (137-145); Total Protein 7.1 g/dL (6.3-8.2)
--- NOTE | 2022-03-28 13:39 | DI.CT.S_ITS ---
PROCEDURE: CT CHEST ABD PEL W CON INDICATIONS: Pelvic pain, tender to palpation TECHNIQUE: After the administration of intravenous contrast, axial sections acquired from the supraclavicular neck to the pubic symphysis. Coronal and sagittal reformats were performed. For radiation dose reduction, the following was used: automated exposure control, adjustment of mA and/or kV according to patient size. COMPARISON: [facility], MR, MR BREAST BILATERAL WITH CAD, 05/22/2021, 15:05. [facility], CT, CT CHEST ABDOMEN PELVIS WITH CONTRAST, 06/30/2021, 12:44. [facility], CT, CT ABDOMEN PELVIS WITH CONTRAST, 08/22/2021, 14:39. [facility], CT, CT ANGIO CHEST PE PROTOCOL, 02/11/2022, 19:38. FINDINGS: Image quality: Excellent. CHEST: Lower Neck: No enlarged lymph nodes. Thyroid: Within normal limits. Axillae: No enlarged lymph nodes. Chest Wall: There are postsurgical changes in the right breast. Lungs and Airways: There are small lung nodules bilaterally. Reference nodules are listed in the following: Nodule 1: 3 mm; right lower lobe; series 3, image 186. Nodule 2: 2 mm; left lower lobe; series 3, image 206. There are multiple subpleural nodules in the anterior aspect of the right upper lobe and right middle lobe, compatible with post radiation change. No consolidation or suspicious nodules. Pleura: No pneumothorax or pleural effusions. Heart: Heart size is normal. No pericardial effusion. Thoracic Vessels: The aorta and pulmonary arteries demonstrate normal size. Mediastinum and Merlyn: No enlarged lymph nodes. Esophagus: No wall thickening. Tiny hiatal hernia. ABDOMEN: Liver: Unremarkable. Gallbladder: Surgically absent. Biliary ducts: Unremarkable. Pancreas: Unremarkable. Spleen: Unremarkable. Adrenal Glands: Unremarkable. Kidneys and Ureters: There is a 1.5 cm solid-appearing nodule in the superior pole of the left kidney. There are a couple of cysts in left kidney. No renal stones or hydronephrosis Stomach and Bowel: Stomach, small bowel loops, and colon are unremarkable. There are numerous colonic diverticula. No CT findings to suggest acute diverticulitis. Peritoneum: No abnormal intraperitoneal fluid. No free air. Ventral Wall: No hernia. Abdominal Nodes: No retroperitoneal or mesenteric adenopathy by size criteria. Vessels: Aorta and inferior vena cava are normal in size. PELVIS: Pelvic Organs: Uterus is enlarged. There is a large exophytic fibroid in the uterine fundus measuring 5.8 cm x 5.0 cm x 5.1 cm. Ovaries are prominent in size for age. No free fluid in pelvis. Bladder: Unremarkable. Pelvic Nodes: No enlarged lymph nodes. Miscellaneous: No inguinal hernias are seen. There is a 1 cm fat lobule with peripheral hyperdensity adjacent to the uterus, compatible with fat necrosis. Bones: Unremarkable. Right shoulder arthroplasty. Degenerative changes are noted in lumbar spine. IMPRESSION: 1. No acute abnormalities are identified. 2. Diverticulosis without diverticulitis. 3. A large uterine fibroid in the fundus of the uterus. In this patient with pelvic pain, pelvic ultrasound is suggested for follow-up evaluation. 4. There is a solid-appearing nodule in the superior pole of the left kidney. Cannot rule out a renal cell carcinoma. Renal renal protocol CT or MRI with and without contrast is recommend for follow-up evaluation. 5. There are multiple small lung nodules bilaterally. Please see enclosed follow-up recommendation. 6. Postsurgical changes in right breast. There is infiltrate in the anterior aspect of the right upper lobe and right middle lobe, 6 presumably secondary to post radiation change. Dictated by: Megan Harris M.D. on 03/28/2022 at 15:06 Approved by: Megan Harris M.D. on 03/28/2022 at 15:45
--- NOTE | 2022-03-28 13:43 | ED.ABDPAIN ---
HPI - Abdominal Pain <LIZABETH GenaoP - Last Filed: 03/28/22 17:23> General Chief Complaint: Abdominal Pain Stated Complaint: unbalanced, loss of apetite, abd pain Time Seen by Provider: 03/28/22 13:26 Source: patient and other Mode of arrival: Ambulatory History of Present Illness HPI narrative: This is a 62-year-old female with history of breast cancer status post radiation on anastrazole, migraines, asthma, and cholecystectomy who complains of transverse low abdominal pain, loose stool, feeling more tired than usual and endorses a 30 lb weight loss over the last 2 months. Patient's primary care provider is Dr. Roman with [facility]. She endorses having pelvic pain which is transverse across her low abdomen, states that she is had loose stool since her cholecystectomy in September 2021. She denies vomiting, denies fever, denies chills. She is legally blind. Patient had tenderness across her suprapubic region, epigastric tenderness to palpation and reports burning substernal with history of gastric ulcer. Recent endoscopy and colonoscopy in October of 2021 without abnormal findings. Patient denies blood in her stool or having any emesis. Denies new urinary frequency or urgency, states that she has a history of diabetes but this is not listed on her medical history. Related Data Home Medications Medication Instructions Recorded Confirmed benazepril 20 mg tablet 20 mg PO QDAY ##0 11/21/11 02/16/22 epinephrine 0.3 mg/0.3 mL 0.3 mg IM PRN PRN Allergies ##0 11/21/11 02/16/22 injection, auto-injector furosemide 40 mg tablet 40 mg PO BID ##0 11/21/11 02/16/22 glucagon (human recombinant) 1 mg 1 mg IJ PRN PRN Hypoglycemia ##0 11/21/11 02/16/22 injection kit (Glucagon Emergency Kit (human-recomb)) atorvastatin 80 mg tablet 80 mg PO HS ##0 05/01/12 02/16/22 gabapentin 300 mg capsule 600 mg PO SEEINSTR ##0 06/12/16 02/16/22 (Neurontin) pantoprazole 40 mg tablet,delayed 40 mg PO BID ##0 09/19/16 02/16/22 release albuterol sulfate 90 mcg/actuation 2 puff inhalation Q4H PRN Asthma 01/29/18 02/16/22 aerosol inhaler (Ventolin HFA) insulin glargine U-300 conc 300 90 unit SUBCUT BEDTIME 01/29/18 02/16/22 unit/mL (3 mL) subcutaneous pen (Toujeo Max U-300 SoloStar) metformin 1,000 mg tablet 1,000 mg PO BID 01/29/18 02/16/22 multivitamin 1 cap PO DAILY ##0 01/29/18 02/16/22 exenatide microspheres 2 mg/0.65 2 mg SUBCUT Q7D 07/17/18 02/16/22 mL subcutaneous pen injector ([employer]) potassium chloride 20 mEq 20 meq PO DAILY 11/26/18 02/16/22 tablet,extended release duloxetine 60 mg capsule,delayed 120 mg PO DAILY 11/26/19 02/16/22 release fluocinolone 0.01 % topical body 1 applic topical TID 05/02/21 02/16/22 oil lamotrigine 100 mg tablet 100 mg PO DAILY 05/02/21 02/16/22 calcium 600 mg capsule 600 mg PO DAILY 07/19/21 02/16/22 cholecalciferol (vitamin D3) 10 400 unit DAILY 07/19/21 02/16/22 mcg (400 unit) capsule (Vitamin D3) acetaminophen 325 mg tablet 325 mg DAILY 10/10/21 02/16/22 (Tylenol) aspirin 81 mg tablet,delayed 81 mg PO DAILY 10/10/21 02/16/22 release doxepin 10 mg capsule 20 mg PO BEDTIME 10/10/21 02/16/22 ferrous sulfate 325 mg (65 mg 325 mg PO DAILY 10/10/21 02/16/22 iron) tablet zolpidem 5 mg tablet 5 mg PO BEDTIME PRN Insomnia 10/10/21 02/16/22 Previous Rx's Medication Instructions Recorded anastrozole 1 mg tablet 1 mg PO DAILY #90 tabs 10/10/21 cephalexin 500 mg capsule 500 mg PO TID 5 days #15 caps 03/28/22 metronidazole 0.75 % topical gel 1 applic topical BEDTIME PRN 03/28/22 pelvic pain #45 grams metronidazole 500 mg tablet 500 mg PO BID 7 days #14 tabs 03/28/22 Allergies Allergy/AdvReac Type Severity Reaction Status Date / Time bee venom protein (honey bee) Allergy Severe anaphylaxis Verified 02/16/22 09:42 [BEE VENOM PROTEIN (HONEY BEE)] chocolate flavor Allergy Severe anaphylaxis Verified 02/16/22 09:42 [CHOCOLATE FLAVOR] meclizine [MECLIZINE] Allergy Severe anaphylaxis Verified 02/16/22 09:42 pseudoephedrine Allergy Severe anaphylacti Verified 02/16/22 09:42 [From ACTIFED] c triprolidine [From ACTIFED] Allergy Severe anaphylacti Verified 02/16/22 09:42 c nickel Allergy Intermediate Rash, skin Verified 02/16/22 09:42 turns green povidone-iodine Allergy Mild rash Verified 02/16/22 09:42 [POVIDONE-IODINE] celecoxib [From Celebrex] AdvReac Severe Shuts my Verified 02/16/22 09:42 kidney down Review of Systems <MAGALI Genao - Last Filed: 03/28/22 17:23> Review of Systems ROS Unobtainable: All systems reviewed & are unremarkable except as noted in HPI and below Patient History <MAGALI Genao - Last Filed: 03/28/22 17:23> Medical History 2nd degree AV block Anxiety Arthritis Asthma Blindness and low vision Chest pain Cholecystitis Cholelithiasis Chronic venous stasis Depression Diverticulosis Edema Elevated LFTs Epigastric pain Fibromyalgia GERD (gastroesophageal reflux disease) Hearing impaired History of migraine History of urinary tract infection History of UTI Hyperlipidemia Hypertension Incomplete emptying of bladder Incontinence in female Kidney stones (~08/2014) Knee pain, right Long QT interval Long QT syndrome (~2018) Macular degeneration Migraines Multiple gastric polyps HARRIS (nonalcoholic steatohepatitis) Obese Optic neuritis Peptic ulcer disease Peripheral neuropathy PTSD (post-traumatic stress disorder) Renal insufficiency Seizures Sleep apnea with use of continuous positive airway pressure (CPAP) Type 2 diabetes mellitus Surgical History History of arthroplasty of left knee (12/10/18) History of arthroplasty of right shoulder (11/30/19) History of carpal tunnel surgery of right wrist (02/24/20) History of colonoscopy History of liver biopsy (02/12/18) History of total left knee replacement Hx of arthroscopic knee surgery Hx of cholecystectomy (02/12/18) Hx of shoulder surgery Hx of tonsillectomy S/P right unicompartmental knee replacement (07/23/18) S/P rotator cuff repair Family History Other Adopted Social History household members: children occupational status: previously employed Smoking Status: Never smoker alcohol intake: never substance use type: does not use Smoking Status: Never smoker Substance Use Type: other Exam <MAGALI Genao - Last Filed: 03/28/22 17:23> Narrative Exam Narrative: Reviewed vitals signs and nursing notes. General: cooperative, comfortable, in no acute distress, well groomed, elevated BMI, HEENT: symmetrical facial expressions, moist mucous membranes Cardiovascular: Initially was tachycardic, however this is improved, regular rate and rhythm, no peripheral edema, warm extremities Respiratory: normal effort, able to speak in complete sentences, without wheezing, stridor, or abnormal breath sounds. No retractions or tachypnea. GI: abdomen soft, mild tenderness to right upper quadrant,, nondistended, without masses, rebound tenderness or exquisite tenderness with exam. MSK: moves all extremities, neurovascularly intact, no weakness, normal tone Skin: brisk capillary refill, without pallor or erythema Neuro: normal speech and cognition, A&O x3, ambulatory, clear speech Psych: mental status is grossly normal, congruent mood, normal affect, pleasant and cooperative Initial Vital Signs Initial Vital Signs: Vital Signs Temperature 98.7 F 03/28/22 12:34 Pulse Rate 111 H 03/28/22 12:34 Respiratory Rate 16 03/28/22 12:34 Blood Pressure 141/76 H 03/28/22 12:34 Pulse Oximetry 98 03/28/22 12:34 Oxygen Delivery Method 03/28/22 12:34 <Kristyn Cain DO - Last Filed: 03/29/22 07:56> Initial Vital Signs Initial Vital Signs: Vital Signs Temperature 98.7 F 03/28/22 12:34 Pulse Rate 111 H 03/28/22 12:34 Respiratory Rate 16 03/28/22 12:34 Blood Pressure 141/76 H 03/28/22 12:34 Pulse Oximetry 98 03/28/22 12:34 Oxygen Delivery Method 03/28/22 12:34 Course <MAGALI Genao - Last Filed: 03/28/22 17:23> Orders Ordered: Discontinued Medications Cephalexin HCl (Cephalexin 250 Mg Capsule) 500 mg PO NOW ONE Stop: 03/28/22 15:01 Last Admin: 03/28/22 16:28 Dose: 500 mg Documented By: DEXTER Hydromorphone HCl (Hydromorphone 0.5 Mg Inj) 0.5 mg IV NOW ONE Stop: 03/28/22 13:40 Last Admin: 03/28/22 13:57 Dose: 0.5 mg Documented By: CRISTOFER Hydromorphone HCl (Hydromorphone 0.5 Mg Inj) 0.5 mg IV NOW ONE Stop: 03/28/22 16:40 Last Admin: 03/28/22 17:01 Dose: 0.5 mg Documented By: CRISTOFER Sodium Chloride (Normal Saline 0.9%) 1,000 mls @ 1,000 mls/hr IV BOLUS ONE Stop: 03/28/22 16:51 Last Admin: 03/28/22 16:27 Dose: Not Given Documented By: DEXTER Metronidazole (Metronidazole 500 Mg Tablet) 500 mg PO NOW ONE Stop: 03/28/22 15:01 Last Admin: 03/28/22 16:28 Dose: 500 mg Documented By: DEXTER Pantoprazole Sodium (Pantoprazole 40 Mg Vial) 40 mg IV NOW ONE Stop: 03/28/22 13:42 Last Admin: 03/28/22 13:57 Dose: 40 mg Documented By: CRISTOFER Vital Signs Vital signs: Vital Signs - 8 hr 03/28/22 12:34 03/28/22 14:06 03/28/22 14:30 Temperature 98.7 F Pulse Rate 111 H 114 H 103 H Respiratory Rate 16 20 20 Blood Pressure 141/76 H 119/63 140/65 Pulse Oximetry 98 98 94 Oxygen Delivery Method Room Air Room Air Room Air 03/28/22 16:00 Temperature Pulse Rate 98 H Respiratory Rate 17 Blood Pressure 129/50 L Pulse Oximetry 98 Oxygen Delivery Method <Kristyn Cain DO - Last Filed: 03/29/22 07:56> Orders Ordered: Discontinued Medications Cephalexin HCl (Cephalexin 250 Mg Capsule) 500 mg PO NOW ONE Stop: 03/28/22 15:01 Last Admin: 03/28/22 16:28 Dose: 500 mg Documented By: DEXTER Hydromorphone HCl (Hydromorphone 0.5 Mg Inj) 0.5 mg IV NOW ONE Stop: 03/28/22 13:40 Last Admin: 03/28/22 13:57 Dose: 0.5 mg Documented By: CRISTOFER Hydromorphone HCl (Hydromorphone 0.5 Mg Inj) 0.5 mg IV NOW ONE Stop: 03/28/22 16:40 Last Admin: 03/28/22 17:01 Dose: 0.5 mg Documented By: CRISTOFER Sodium Chloride (Normal Saline 0.9%) 1,000 mls @ 1,000 mls/hr IV BOLUS ONE Stop: 03/28/22 16:51 Last Admin: 03/28/22 16:27 Dose: Not Given Documented By: DEXTER Metronidazole (Metronidazole 500 Mg Tablet) 500 mg PO NOW ONE Stop: 03/28/22 15:01 Last Admin: 03/28/22 16:28 Dose: 500 mg Documented By: DEXTER Pantoprazole Sodium (Pantoprazole 40 Mg Vial) 40 mg IV NOW ONE Stop: 03/28/22 13:42 Last Admin: 03/28/22 13:57 Dose: 40 mg Documented By: CRISTOFER Vital Signs Vital signs: Vital Signs - 8 hr 03/28/22 12:34 03/28/22 14:06 03/28/22 14:30 Temperature 98.7 F Pulse Rate 111 H 114 H 103 H Respiratory Rate 16 20 20 Blood Pressure 141/76 H 119/63 140/65 Pulse Oximetry 98 98 94 Oxygen Delivery Method Room Air Room Air Room Air 03/28/22 16:00 Temperature Pulse Rate 98 H Respiratory Rate 17 Blood Pressure 129/50 L Pulse Oximetry 98 Oxygen Delivery Method MDM - Abdominal Pain <MAGALI Genao - Last Filed: 03/28/22 17:23> Lab Data Lab results narrative: Patient has history of Klebsiella pneumoniae from right shoulder wound in 2020,. [facility] CLIA ID [id number] [address] [place] [address], [id number] RUN DATE: 03/28/22 Specimen Inquiry PAGE 1 RUN TIME: 1535 Name: Kimberly Lion Age/Sex: 62/F Attend Dr: Roseanna Ruiz Unit#: [id number] : 1960ocation: ED Re03/28/22 Disch: Status: REG ER SPEC #: [id number] KRISTEN: 03/28/22 STATUS: COMP REQ #: [id number] SPDESC: RECD: 03/28/22-[address]: Roseanna Ruiz SOURCE: Vaginal ENTR: 03/28/22-[address]: Violeta Roman MD FAX TO: ORDERED: Wet Prep Procedure Result Verified Site Wet Prep Tric BV Eulalia Final 03/28/22-1458 White blood cells Few WBCs Clue cells: None seen Yeast: None seen Trichomonas: None seen Result diagrams: 03/28/22 12:51 03/28/22 12:51 Labs: Lab Results 03/28/22 03/28/22 03/28/22 Range/Units 12:51 12:51 12:51 WBC 4.3 L (4.5-11.0) X10^3/uL RBC 4.10 (4.0-5.2) X10^6/uL Hgb 11.2 L (12.0-16.0) g/dL Hct 33.9 L (36-46) % MCV 82.6 (80-100) fL MCH 27.2 (26-34) PG MCHC 32.9 (30-36) % RDW 14.1 (11.6-14.8) % Plt Count 203 (150-400) X10^3/uL Neut % (Auto) 62.4 (50-75) % Lymph % (Auto) 22.1 L (25-40) % Roberts % (Auto) 12.8 (3-14) % Eos % (Auto) 2.5 (2-4) % Baso % (Auto) 0.2 (0-2) % Neut # (Auto) 2700 (8266-0226) /uL Lymph # (Auto) 1000 L (9852-9509) /uL Roberts # (Auto) 600 (0-900) /uL Eos # (Auto) 100 (0-450) /uL Baso # (Auto) 0 (0-100) /uL PT 12.1 (10.1-12.7) SECONDS INR 1.1 (0.9-1.3) Sodium 136 L (137-145) mmol/L Potassium 4.6 (3.4-5.1) mmol/L Chloride 99 (98-107) mmol/L Carbon Dioxide 26 (22-32) mmol/L BUN 16 (7-17) mg/dL Creatinine 0.78 (0.52-1.04) mg/dL Estimated GFR > 60 (>60) mL/min BUN/Creatinine Ratio 20.5 (6-22) Glucose 65 L (80-110) mg/dL Calcium 9.5 (8.4-10.2) mg/dL Total Bilirubin 0.5 (0.2-1.3) mg/dL AST 79 H (14-36) IU/L ALT 103 H (<35) IU/L Alkaline Phosphatase 81 (38-126) U/L Total Creatine Kinase (30-135) U/L CK-MB (CK-2) CK-MB (CK-2) Rel Index Troponin I (0.01-0.034) ng/mL C-Reactive Protein (<1.0) mg/dL Total Protein 7.1 (6.3-8.2) g/dL Lipase 175 (23-300) U/L Urine Color Urine Appearance Urine pH (4.5-8.0) Ur Specific Wheatcroft (1.000-1.035) Urine Protein (Negative) Urine Glucose (UA) (Negative) g/dL Urine Ketones (NEGATIVE) Urine Occult Blood (Negative) Urine Nitrate (Negative) Urine Bilirubin (NEGATIVE) Urine Urobilinogen (0.2) E.U./dL Ur Leukocyte Esterase (NEGATIVE) Urine RBC (0-5/HPF) Urine WBC (0-5/HPF) Urine Bacteria (None) Ur Culture Indicated? U Opiates 300ng/mL cut (Negative) Ur Oxycodone Screen (Negative) Urine Methadone Screen (Negative) Ur Barbiturates Screen (Negative) U Tricyclic Antidepress (Negative) Ur Phencyclidine Scrn (Negative) Ur Amphetamines Screen (Negative) U Methamphetamines Scrn (Negative) Ur MDMA Scrn (Ecstasy) (Negative) U Benzodiazepines Scrn (Negative) Urine Cocaine Screen (Negative) U Marijuana (THC) Screen (Negative) SARS-CoV-2 (PCR) (Negative) Influenza A (RT-PCR) (NEGATIVE) Influenza B (RT-PCR) (NEGATIVE) RSV (PCR) (Negative) 03/28/22 03/28/22 03/28/22 Range/Units 12:59 12:59 13:46 WBC (4.5-11.0) X10^3/uL RBC (4.0-5.2) X10^6/uL Hgb (12.0-16.0) g/dL Hct (36-46) % MCV (80-100) fL MCH (26-34) PG MCHC (30-36) % RDW (11.6-14.8) % Plt Count (150-400) X10^3/uL Neut % (Auto) (50-75) % Lymph % (Auto) (25-40) % Roberts % (Auto) (3-14) % Eos % (Auto) (2-4) % Baso % (Auto) (0-2) % Neut # (Auto) (0262-7997) /uL Lymph # (Auto) (0044-1147) /uL Roberts # (Auto) (0-900) /uL Eos # (Auto) (0-450) /uL Baso # (Auto) (0-100) /uL PT (10.1-12.7) SECONDS INR (0.9-1.3) Sodium (137-145) mmol/L Potassium (3.4-5.1) mmol/L Chloride (98-107) mmol/L Carbon Dioxide (22-32) mmol/L BUN (7-17) mg/dL Creatinine (0.52-1.04) mg/dL Estimated GFR (>60) mL/min BUN/Creatinine Ratio (6-22) Glucose (80-110) mg/dL Calcium (8.4-10.2) mg/dL Total Bilirubin (0.2-1.3) mg/dL AST (14-36) IU/L ALT (<35) IU/L Alkaline Phosphatase (38-126) U/L Total Creatine Kinase 44 (30-135) U/L CK-MB (CK-2) TNP CK-MB (CK-2) Rel Index TNP Troponin I < 0.012 (0.01-0.034) ng/mL C-Reactive Protein < 0.5 (<1.0) mg/dL Total Protein (6.3-8.2) g/dL Lipase (23-300) U/L Urine Color Urine Appearance Urine pH (4.5-8.0) Ur Specific Wheatcroft (1.000-1.035) Urine Protein (Negative) Urine Glucose (UA) (Negative) g/dL Urine Ketones (NEGATIVE) Urine Occult Blood (Negative) Urine Nitrate (Negative) Urine Bilirubin (NEGATIVE) Urine Urobilinogen (0.2) E.U./dL Ur Leukocyte Esterase (NEGATIVE) Urine RBC (0-5/HPF) Urine WBC (0-5/HPF) Urine Bacteria (None) Ur Culture Indicated? U Opiates 300ng/mL cut Negative (Negative) Ur Oxycodone Screen Negative (Negative) Urine Methadone Screen Negative (Negative) Ur Barbiturates Screen Negative (Negative) U Tricyclic Antidepress Positive H (Negative) Ur Phencyclidine Scrn Negative (Negative) Ur Amphetamines Screen Negative (Negative) U Methamphetamines Scrn Negative (Negative) Ur MDMA Scrn (Ecstasy) Negative (Negative) U Benzodiazepines Scrn Negative (Negative) Urine Cocaine Screen Negative (Negative) U Marijuana (THC) Screen Negative (Negative) SARS-CoV-2 (PCR) (Negative) Influenza A (RT-PCR) (NEGATIVE) Influenza B (RT-PCR) (NEGATIVE) RSV (PCR) (Negative) 03/28/22 03/28/22 Range/Units 13:46 14:10 WBC (4.5-11.0) X10^3/uL RBC (4.0-5.2) X10^6/uL Hgb (12.0-16.0) g/dL Hct (36-46) % MCV (80-100) fL MCH (26-34) PG MCHC (30-36) % RDW (11.6-14.8) % Plt Count (150-400) X10^3/uL Neut % (Auto) (50-75) % Lymph % (Auto) (25-40) % Roberts % (Auto) (3-14) % Eos % (Auto) (2-4) % Baso % (Auto) (0-2) % Neut # (Auto) (0910-9816) /uL Lymph # (Auto) (0140-1664) /uL Roberts # (Auto) (0-900) /uL Eos # (Auto) (0-450) /uL Baso # (Auto) (0-100) /uL PT (10.1-12.7) SECONDS INR (0.9-1.3) Sodium (137-145) mmol/L Potassium (3.4-5.1) mmol/L Chloride (98-107) mmol/L Carbon Dioxide (22-32) mmol/L BUN (7-17) mg/dL Creatinine (0.52-1.04) mg/dL Estimated GFR (>60) mL/min BUN/Creatinine Ratio (6-22) Glucose (80-110) mg/dL Calcium (8.4-10.2) mg/dL Total Bilirubin (0.2-1.3) mg/dL AST (14-36) IU/L ALT (<35) IU/L Alkaline Phosphatase (38-126) U/L Total Creatine Kinase (30-135) U/L CK-MB (CK-2) CK-MB (CK-2) Rel Index Troponin I (0.01-0.034) ng/mL C-Reactive Protein (<1.0) mg/dL Total Protein (6.3-8.2) g/dL Lipase (23-300) U/L Urine Color Yellow Urine Appearance Clear Urine pH 5.5 (4.5-8.0) Ur Specific Wheatcroft <=1.005 (1.000-1.035) Urine Protein Negative (Negative) Urine Glucose (UA) Negative (Negative) g/dL Urine Ketones Negative (NEGATIVE) Urine Occult Blood Negative (Negative) Urine Nitrate Negative (Negative) Urine Bilirubin Negative (NEGATIVE) Urine Urobilinogen 0.2 (0.2) E.U./dL Ur Leukocyte Esterase Trace H (NEGATIVE) Urine RBC 0-1/hpf (0-5/HPF) Urine WBC 0-1/hpf (0-5/HPF) Urine Bacteria None seen (None) Ur Culture Indicated? Specimen cultured U Opiates 300ng/mL cut (Negative) Ur Oxycodone Screen (Negative) Urine Methadone Screen (Negative) Ur Barbiturates Screen (Negative) U Tricyclic Antidepress (Negative) Ur Phencyclidine Scrn (Negative) Ur Amphetamines Screen (Negative) U Methamphetamines Scrn (Negative) Ur MDMA Scrn (Ecstasy) (Negative) U Benzodiazepines Scrn (Negative) Urine Cocaine Screen (Negative) U Marijuana (THC) Screen (Negative) SARS-CoV-2 (PCR) Negative (Negative) Influenza A (RT-PCR) Flu a negative (NEGATIVE) Influenza B (RT-PCR) Flu b negative (NEGATIVE) RSV (PCR) Negative (Negative) Point of care testing: Point of Care Testing Glucose POC 74 Urine Dip Bedside Urine Glucose Negative Bedside Urine Bilirubin - Negative Bedside Urine Ketone - Negative Urine Specific Wheatcroft 1.010 Bedside Urine Occult Blood - Negative Bedside Urine pH 6.0 Bedside Urine Protein - Negative Bedside Urine Urobilinogen - Negative Bedside Urine Nitrite - Negative Bedside Urine Leukocytes - Negative Esterase Imaging Data CT scan - abdomen/pelvis: Radiologist's Impression: PROCEDURE:? CT CHEST ABD PEL W CON ? INDICATIONS:? Pelvic pain, tender to palpation ? TECHNIQUE:? After the administration of intravenous contrast, axial sections acquired from the supraclavicular neck to the pubic symphysis.? Coronal and sagittal reformats were performed.? For radiation dose reduction, the following was used:? automated exposure control, adjustment of mA and/or kV according to patient size.? ? COMPARISON: ? [facility], MR, MR BREAST BILATERAL WITH CAD, 05/22/2021, 15:05. ?[facility], CT, CT CHEST ABDOMEN PELVIS WITH CONTRAST, 06/30/2021, 12:44.? [facility], CT, CT ABDOMEN PELVIS WITH CONTRAST, 08/22/2021, 14:39.? [facility], CT, CT ANGIO CHEST PE PROTOCOL, 02/11/2022, 19:38. ? FINDINGS:? Image quality:? Excellent.? ? CHEST: Lower Neck: No enlarged lymph nodes.? Thyroid: Within normal limits. Axillae: No enlarged lymph nodes. Chest Wall:? There are postsurgical changes in the right breast.? ? Lungs and Airways:? There are small lung nodules bilaterally.? Reference nodules are listed in the following: ? Nodule 1:? 3 mm; right lower lobe; series 3, image 186. Nodule 2:? 2 mm; left lower lobe; series 3, image 206. ? There are multiple subpleural nodules in the anterior aspect of the right upper lobe and right middle lobe, compatible with post radiation change.? No consolidation or suspicious nodules. Pleura: No pneumothorax or pleural effusions.? ? Heart: Heart size is normal.? No pericardial effusion. Thoracic Vessels: The aorta and pulmonary arteries demonstrate normal size.? Mediastinum and Merlyn: No enlarged lymph nodes.? Esophagus: No wall thickening.? Tiny hiatal hernia. ? ? ABDOMEN: Liver:? Unremarkable.? ? Gallbladder:? Surgically absent.? ? Biliary ducts:? Unremarkable.? ? Pancreas:? Unremarkable.? ? Spleen:? Unremarkable.? ? Adrenal Glands:? Unremarkable.? ? Kidneys and Ureters:? There is a 1.5 cm solid-appearing nodule in the superior pole of the left kidney.? There are a couple of cysts in left kidney.? No renal stones or hydronephrosis? ? Stomach and Bowel:? Stomach, small bowel loops, and colon are unremarkable.? There are numerous colonic diverticula.? No CT findings to suggest acute diverticulitis. Peritoneum:? No abnormal intraperitoneal fluid.? No free air.? ? Ventral Wall: ? No hernia.? Abdominal Nodes:? No retroperitoneal or mesenteric adenopathy by size criteria.? Vessels:? Aorta and inferior vena cava are normal in size.? ? PELVIS: Pelvic Organs:? Uterus is enlarged.? There is a large exophytic fibroid in the uterine fundus measuring 5.8 cm x 5.0 cm x 5.1 cm.? ? Ovaries are prominent in size for age.? No free fluid in pelvis. Bladder:? Unremarkable.? ? Pelvic Nodes: No enlarged lymph nodes.? Miscellaneous: No inguinal hernias are seen.? There is a 1 cm fat lobule with peripheral hyperdensity adjacent to the uterus, compatible with fat necrosis. ? ? Bones:? Unremarkable.? ? Right shoulder arthroplasty.? Degenerative changes are noted in lumbar spine. ? IMPRESSION:? ? 1.? No acute abnormalities are identified. ? 2.? Diverticulosis without diverticulitis. ? 3.? A large uterine fibroid in the fundus of the uterus.? In this patient with pelvic pain, pelvic ultrasound is suggested for follow-up evaluation. ? 4. There is a solid-appearing nodule in the superior pole of the left kidney.? Cannot rule out a renal cell carcinoma.? Renal renal protocol CT or MRI with and without contrast is recommend for follow-up evaluation. ? 5. There are multiple small lung nodules bilaterally.? Please see enclosed follow-up recommendation. ? 6. Postsurgical changes in right breast.? There is infiltrate in the anterior aspect of the right upper lobe and right middle lobe, 6 presumably secondary to post radiation change.? Dictated by: Megan Harris M.D. on 03/28/2022 at 15:06 ? ? Approved by: Megan Harris M.D. on 03/28/2022 at 15:45 ? ECG Data Interpretation: EKG independently reviewed by myself at 1300 reveals sinus tachycardia at 104 bpm with regular axis and intervals. No STEMI, ST segment changes, arrhythmia, or acute ischemic changes. Inverted T-waves in lead 1 MDM Narrative Medical decision making narrative: CC: Right upper quadrant pain, generalized abdominal pain This is a 62-year-old female with history of metastatic breast cancer status post radiation, on anastrozole, history of asthma, cholecystectomy, migraines, UTIs who complains of transverse low abdominal pain, loose stool, feeling weaker than usual. She endorses having pelvic pain which is transverse across her low abdomen, states that she is had loose stool since her cholecystectomy in September 2021. She denies vomiting, denies fever, denies chills. She is legally blind. Patient had tenderness across her suprapubic region, epigastric tenderness to palpation and reports burning substernal with history of gastric ulcer. Recent endoscopy and colonoscopy in October of 2021 without abnormal findings. Patient denies blood in her stool or having any emesis. Differential diagnoses include, but are not limited to: Viral illness, diverticulitis, gastroenteritis, pancreatitis, perforated viscus, IBS, pelvic infection including bacterial vaginosis, PID, UTI, pyelonephritis, nephrolithiasis, GERD, gastric ulcer, duodenal, cholangitis, I have reviewed the patient's vital signs and nursing notes as well as prior records if available. Lab test results independently reviewed, pertinent findings: Mild leukopenia 4.3, lymphopenia at 22.1 hypoglycemia with a glucose of 65, patient was given juice and cheese, she tolerated this without vomiting. And did troponin 0.012, CRP is not elevated at 0.5, UA shows a trace of leukocyte esterase without other abnormality, urine was cultured. No bacteria or RBCs. My imaging interpretation: Patient had recent CT angio on 02/11/2022 without evidence of pulmonary embolus CT abdomen pelvis was change by somebody to a chest abdomen pelvis with with contrast, the radiology report took approximately 3 hours but came back negative for acute abnormalities, shows diverticulosis without diverticulitis, a large uterine fibroid in the fundus of the uterus measuring 5.8 x 5.0 x 5 1 cm. Clinical Decision Rules/Scores evaluated: Discussion of Management with other Health Professionals: Re-evaluations/Ongoing course of care: 1330 assessed patient, she has multiple complaints including diarrhea, transverse lower abdominal pain, pelvic pain, she was tender over epigastrium and endorses burning sensation under his sternum, ordered EKG, chest x-ray, additional lab work, CT scan and pain medication ordered, respiratory panel, UA and wet mount ordered for patient's complaint of pelvic pain with suprapubic tenderness. Ordered Protonix IV for her epigastric pain as well as EKG additional lab work. 1400 obtained wet prep with patient's consent, respiratory panel ordered and is pending Patient's respiratory panel is negative for COVID, influenza a, B and RSV. Urine drug screen only positive for tricyclic antidepressants. UA does not show RBCs or WBCs but had a trace of leukocyte esterase, culture is pending, no elevation to lipase, mild elevation of AST and ALT, no elevation to troponin, 0.012, CRP is not elevated at 0.5 no electrolyte abnormalities, Wet mount is positive for wbc's, will treat for bacterial vaginosis with Flagyl CT chest abdomen pelvis was negative for acute abnormality, patient has a large uterine but there was no prolapse or evidence of abnormality when I completed her wet mount. Patient did not have pain, UA shows a trace of leukocyte esterase, UA was culture, patient was treated with cephalexin. Since patient has history of diabetes, will treat for UTI and bacterial vaginitis. Encouraged her to stay hydrated, follow-up with her PCP in regards to the uterine fibroid, she may need outpatient transvaginal ultrasound or OBGYN referral for further evaluation of this. Patient's symptoms improved over duration of stay with above-stated therapies. Overall patient's lab work is reassuring, no other significant findings. Patient's pain was treated with hydromorphone in the emergency department she tolerated this well. Disposition: see below, along with detailed discharge instructions that have been reviewed with the patient as well as indications for ED re-evaluation and additional outpatient follow-up. Questions are addressed and there is agreement with the plan and for follow-up. Patient is appropriate for outpatient management. MIPS: This encounter doesn't have any diagnosis associated with MIPS criteria. I, Roseanna Ruiz [facility], personally performed the services described in the documentation, and it accurately records my words and actions. I collaborated with the ED attending physician for WILMER level 2, 3, and some level 4s as appropriate. <Kristyn Cain, DO - Last Filed: 03/29/22 07:56> Lab Data Labs: Lab Results 03/28/22 03/28/22 03/28/22 Range/Units 12:51 12:51 12:51 WBC 4.3 L (4.5-11.0) X10^3/uL RBC 4.10 (4.0-5.2) X10^6/uL Hgb 11.2 L (12.0-16.0) g/dL Hct 33.9 L (36-46) % MCV 82.6 (80-100) fL MCH 27.2 (26-34) PG MCHC 32.9 (30-36) % RDW 14.1 (11.6-14.8) % Plt Count 203 (150-400) X10^3/uL Neut % (Auto) 62.4 (50-75) % Lymph % (Auto) 22.1 L (25-40) % Roberts % (Auto) 12.8 (3-14) % Eos % (Auto) 2.5 (2-4) % Baso % (Auto) 0.2 (0-2) % Neut # (Auto) 2700 (7170-5160) /uL Lymph # (Auto) 1000 L (9390-2067) /uL Roberts # (Auto) 600 (0-900) /uL Eos # (Auto) 100 (0-450) /uL Baso # (Auto) 0 (0-100) /uL PT 12.1 (10.1-12.7) SECONDS INR 1.1 (0.9-1.3) Sodium 136 L (137-145) mmol/L Potassium 4.6 (3.4-5.1) mmol/L Chloride 99 (98-107) mmol/L Carbon Dioxide 26 (22-32) mmol/L BUN 16 (7-17) mg/dL Creatinine 0.78 (0.52-1.04) mg/dL Estimated GFR > 60 (>60) mL/min BUN/Creatinine Ratio 20.5 (6-22) Glucose 65 L (80-110) mg/dL Calcium 9.5 (8.4-10.2) mg/dL Total Bilirubin 0.5 (0.2-1.3) mg/dL AST 79 H (14-36) IU/L ALT 103 H (<35) IU/L Alkaline Phosphatase 81 (38-126) U/L Total Creatine Kinase (30-135) U/L CK-MB (CK-2) CK-MB (CK-2) Rel Index Troponin I (0.01-0.034) ng/mL C-Reactive Protein (<1.0) mg/dL Total Protein 7.1 (6.3-8.2) g/dL Lipase 175 (23-300) U/L Urine Color Urine Appearance Urine pH (4.5-8.0) Ur Specific Wheatcroft (1.000-1.035) Urine Protein (Negative) Urine Glucose (UA) (Negative) g/dL Urine Ketones (NEGATIVE) Urine Occult Blood (Negative) Urine Nitrate (Negative) Urine Bilirubin (NEGATIVE) Urine Urobilinogen (0.2) E.U./dL Ur Leukocyte Esterase (NEGATIVE) Urine RBC (0-5/HPF) Urine WBC (0-5/HPF) Urine Bacteria (None) Ur Culture Indicated? U Opiates 300ng/mL cut (Negative) Ur Oxycodone Screen (Negative) Urine Methadone Screen (Negative) Ur Barbiturates Screen (Negative) U Tricyclic Antidepress (Negative) Ur Phencyclidine Scrn (Negative) Ur Amphetamines Screen (Negative) U Methamphetamines Scrn (Negative) Ur MDMA Scrn (Ecstasy) (Negative) U Benzodiazepines Scrn (Negative) Urine Cocaine Screen (Negative) U Marijuana (THC) Screen (Negative) SARS-CoV-2 (PCR) (Negative) Influenza A (RT-PCR) (NEGATIVE) Influenza B (RT-PCR) (NEGATIVE) RSV (PCR) (Negative) 03/28/22 03/28/22 03/28/22 Range/Units 12:59 12:59 13:46 WBC (4.5-11.0) X10^3/uL RBC (4.0-5.2) X10^6/uL Hgb (12.0-16.0) g/dL Hct (36-46) % MCV (80-100) fL MCH (26-34) PG MCHC (30-36) % RDW (11.6-14.8) % Plt Count (150-400) X10^3/uL Neut % (Auto) (50-75) % Lymph % (Auto) (25-40) % Roberts % (Auto) (3-14) % Eos % (Auto) (2-4) % Baso % (Auto) (0-2) % Neut # (Auto) (6085-3612) /uL Lymph # (Auto) (0130-3604) /uL Roberts # (Auto) (0-900) /uL Eos # (Auto) (0-450) /uL Baso # (Auto) (0-100) /uL PT (10.1-12.7) SECONDS INR (0.9-1.3) Sodium (137-145) mmol/L Potassium (3.4-5.1) mmol/L Chloride (98-107) mmol/L Carbon Dioxide (22-32) mmol/L BUN (7-17) mg/dL Creatinine (0.52-1.04) mg/dL Estimated GFR (>60) mL/min BUN/Creatinine Ratio (6-22) Glucose (80-110) mg/dL Calcium (8.4-10.2) mg/dL Total Bilirubin (0.2-1.3) mg/dL AST (14-36) IU/L ALT (<35) IU/L Alkaline Phosphatase (38-126) U/L Total Creatine Kinase 44 (30-135) U/L CK-MB (CK-2) TNP CK-MB (CK-2) Rel Index TNP Troponin I < 0.012 (0.01-0.034) ng/mL C-Reactive Protein < 0.5 (<1.0) mg/dL Total Protein (6.3-8.2) g/dL Lipase (23-300) U/L Urine Color Urine Appearance Urine pH (4.5-8.0) Ur Specific Wheatcroft (1.000-1.035) Urine Protein (Negative) Urine Glucose (UA) (Negative) g/dL Urine Ketones (NEGATIVE) Urine Occult Blood (Negative) Urine Nitrate (Negative) Urine Bilirubin (NEGATIVE) Urine Urobilinogen (0.2) E.U./dL Ur Leukocyte Esterase (NEGATIVE) Urine RBC (0-5/HPF) Urine WBC (0-5/HPF) Urine Bacteria (None) Ur Culture Indicated? U Opiates 300ng/mL cut Negative (Negative) Ur Oxycodone Screen Negative (Negative) Urine Methadone Screen Negative (Negative) Ur Barbiturates Screen Negative (Negative) U Tricyclic Antidepress Positive H (Negative) Ur Phencyclidine Scrn Negative (Negative) Ur Amphetamines Screen Negative (Negative) U Methamphetamines Scrn Negative (Negative) Ur MDMA Scrn (Ecstasy) Negative (Negative) U Benzodiazepines Scrn Negative (Negative) Urine Cocaine Screen Negative (Negative) U Marijuana (THC) Screen Negative (Negative) SARS-CoV-2 (PCR) (Negative) Influenza A (RT-PCR) (NEGATIVE) Influenza B (RT-PCR) (NEGATIVE) RSV (PCR) (Negative) 03/28/22 03/28/22 Range/Units 13:46 14:10 WBC (4.5-11.0) X10^3/uL RBC (4.0-5.2) X10^6/uL Hgb (12.0-16.0) g/dL Hct (36-46) % MCV (80-100) fL MCH (26-34) PG MCHC (30-36) % RDW (11.6-14.8) % Plt Count (150-400) X10^3/uL Neut % (Auto) (50-75) % Lymph % (Auto) (25-40) % Roberts % (Auto) (3-14) % Eos % (Auto) (2-4) % Baso % (Auto) (0-2) % Neut # (Auto) (1582-3410) /uL Lymph # (Auto) (0726-5459) /uL Roberts # (Auto) (0-900) /uL Eos # (Auto) (0-450) /uL Baso # (Auto) (0-100) /uL PT (10.1-12.7) SECONDS INR (0.9-1.3) Sodium (137-145) mmol/L Potassium (3.4-5.1) mmol/L Chloride (98-107) mmol/L Carbon Dioxide (22-32) mmol/L BUN (7-17) mg/dL Creatinine (0.52-1.04) mg/dL Estimated GFR (>60) mL/min BUN/Creatinine Ratio (6-22) Glucose (80-110) mg/dL Calcium (8.4-10.2) mg/dL Total Bilirubin (0.2-1.3) mg/dL AST (14-36) IU/L ALT (<35) IU/L Alkaline Phosphatase (38-126) U/L Total Creatine Kinase (30-135) U/L CK-MB (CK-2) CK-MB (CK-2) Rel Index Troponin I (0.01-0.034) ng/mL C-Reactive Protein (<1.0) mg/dL Total Protein (6.3-8.2) g/dL Lipase (23-300) U/L Urine Color Yellow Urine Appearance Clear Urine pH 5.5 (4.5-8.0) Ur Specific Wheatcroft <=1.005 (1.000-1.035) Urine Protein Negative (Negative) Urine Glucose (UA) Negative (Negative) g/dL Urine Ketones Negative (NEGATIVE) Urine Occult Blood Negative (Negative) Urine Nitrate Negative (Negative) Urine Bilirubin Negative (NEGATIVE) Urine Urobilinogen 0.2 (0.2) E.U./dL Ur Leukocyte Esterase Trace H (NEGATIVE) Urine RBC 0-1/hpf (0-5/HPF) Urine WBC 0-1/hpf (0-5/HPF) Urine Bacteria None seen (None) Ur Culture Indicated? Specimen cultured U Opiates 300ng/mL cut (Negative) Ur Oxycodone Screen (Negative) Urine Methadone Screen (Negative) Ur Barbiturates Screen (Negative) U Tricyclic Antidepress (Negative) Ur Phencyclidine Scrn (Negative) Ur Amphetamines Screen (Negative) U Methamphetamines Scrn (Negative) Ur MDMA Scrn (Ecstasy) (Negative) U Benzodiazepines Scrn (Negative) Urine Cocaine Screen (Negative) U Marijuana (THC) Screen (Negative) SARS-CoV-2 (PCR) Negative (Negative) Influenza A (RT-PCR) Flu a negative (NEGATIVE) Influenza B (RT-PCR) Flu b negative (NEGATIVE) RSV (PCR) Negative (Negative) Point of care testing: Point of Care Testing Glucose POC 74 Urine Dip Bedside Urine Glucose Negative Bedside Urine Bilirubin - Negative Bedside Urine Ketone - Negative Urine Specific Wheatcroft 1.010 Bedside Urine Occult Blood - Negative Bedside Urine pH 6.0 Bedside Urine Protein - Negative Bedside Urine Urobilinogen - Negative Bedside Urine Nitrite - Negative Bedside Urine Leukocytes - Negative Esterase ECG Data Interpretation: EKG independently reviewed by myself at 1300 reveals sinus tachycardia at 104 bpm with regular axis and intervals. No STEMI, ST segment changes, arrhythmia, or acute ischemic changes. Inverted T-waves in lead 1 [place]: Normal sinus rhythm rate 104 NE interval 138 QRS 80 QTC 433, no ST changes Q-wave noted in lead 3 only nonpathologic. V1 does show T-wave inversion some slight ST depression however this is similar from previous EKG 02/11/2022. No new or acute changes Discharge Plan Departure Patient Disposition: Home Clinical Impression: Vaginitis Qualifiers: Chronicity: acute Qualified Code(s): N76.0 - Acute vaginitis UTI (urinary tract infection) Qualifiers: Urinary tract infection type: acute cystitis Hematuria presence: without hematuria Qualified Code(s): N30.00 - Acute cystitis without hematuria Fibroid, uterine Qualifiers: Uterine leiomyoma location: unspecified location Qualified Code(s): D25.9 - Leiomyoma of uterus, unspecified Instructions: Bacterial Vaginosis, Uterine Fibroids, DI for Urinary Tract Infection (UTI) Activity Restrictions/Additional Instructions: *You have been diagnosed with white blood cells your vaginal secretions, this is treated with metronidazole/Flagyl and a trace of bacteria in your urine. I have prescribed cephalexin for you, the urine culture were growing over the will determine if the antibiotic is appropriate. Your blood sugar went down to 65 today, this is not helping you feel good. Since you have history of diabetes and there was a trace of bacteria in the urine we will treat you for a bladder infection. Thank you for your patients today, the CT report took a very long time to come back. The CT does not show any acute or dangerous abnormalities. You have a large fibroids in your uterus without surrounding free fluid or evidence of inflammation. Please follow-up with Dr. Roman about this and she will evaluate this further with an ultrasound and or referral to OBGYN. Please stay hydrated, we did not find anything dangerous on your workup today. I hope you start feeling better soon, your respiratory panel is negative for all tested viruses. *What to do: *Please continue to take your regular medications as directed. [x ] New medication prescriptions sent to your pharmacy: [[facility] ] [ ] New medication written as a paper prescription [ ] No new medications given *Please follow up with your primary care provider in 2-3 days, call for an appointment. Let them know you were seen in the Emergency Department and that we asked that you be seen for follow-up. We will electronically transmit a record of today's note if your PCP is in our system *If you do not have a primary care provider please contact [phone] to establish care with one of the [facility] primary care providers. *Return to Emergency Department if you should have any new, worsening, or concerning symptoms, such as [fever greater than 101F, chills, worsening pain, persistent vomiting or other bothersome symptoms]. Prescriptions: New metronidazole 500 mg tablet 500 mg PO BID 7 Days Qty: 14 0RF metronidazole 0.75 % gel 1 applic topical BEDTIME PRN (Reason: pelvic pain) Qty: 45 0RF cephalexin 500 mg capsule 500 mg PO TID 5 Days Qty: 15 0RF No Action furosemide 40 MG tablet 40 mg PO BID Qty: 0 benazepril 20 MG tablet 20 mg PO QDAY Qty: 0 epinephrine 0.3 MG/0.3 ML auto-injector 0.3 mg IM PRN PRN (Reason: Allergies) Qty: 0 Glucagon Emergency Kit (human) 1 MG kit 1 mg IJ PRN PRN (Reason: Hypoglycemia) Qty: 0 atorvastatin 80 MG tablet 80 mg PO HS Qty: 0 gabapentin [Neurontin] 300 MG capsule 600 mg PO SEEINSTR Qty: 0 Rx Instructions: 600mg bid, 900mg bedtime pantoprazole 40 MG tablet,delayed release (DR/EC) 40 mg PO BID Qty: 0 metformin 1,000 mg Tablet 1,000 mg PO BID albuterol sulfate [Ventolin HFA] 90 mcg/actuation Hfa Aerosol Inhaler 2 puff INHALATION Q4H PRN (Reason: Asthma) multivitamin Capsule 1 cap PO DAILY Qty: 0 Toujeo Max U-300 SoloStar 300 unit/mL (3 mL) Insulin Pen 90 unit SUBCUT BEDTIME Label Comments: pt took full dose last pm Rx Instructions: Please confirm which Toujeo Bydureon 2 mg/0.65 mL Pen Injector 2 mg SUBCUT Q7D Rx Instructions: Every Saturday duloxetine 60 mg Capsule,Delayed Release(Dr/Ec) 120 mg PO DAILY fluocinolone 0.01 % Oil 1 applic TOPICAL TID lamotrigine 100 mg Tablet 100 mg PO DAILY calcium 600 mg Capsule 600 mg PO DAILY cholecalciferol (vitamin D3) [Vitamin D3] 10 mcg (400 unit) Capsule 400 unit DAILY acetaminophen [Tylenol] 325 mg Tablet 325 mg DAILY doxepin 10 mg Capsule 20 mg PO BEDTIME ferrous sulfate 325 mg (65 mg iron) Tablet 325 mg PO DAILY zolpidem 5 mg Tablet 5 mg PO BEDTIME PRN (Reason: Insomnia) aspirin 81 mg tablet,delayed release (DR/EC) 81 mg PO DAILY anastrozole 1 mg Tablet 1 mg PO DAILY Qty: 90 3RF potassium chloride 20 mEq Tablet Extended Release 20 meq PO DAILY Referrals: Violeta Roman MD [Primary Care Provider] - Stand Alone Forms: Patient Portal/API <Kristyn Cain DO - Last Filed: 03/29/22 07:56> Cosign ED Attending Sofíaature Attestation: I was immediately available in the department for consultation. Documentation has been reviewed.
[2022-03-28] MEDS: PANTOPRAZOLE 40 MG VIAL IV (13:57)
[2022-03-28] MEDS: HYDROMORPHONE 0.5 MG INJ IV ×2 (13:57→17:01)
[2022-03-28 14:06] VITALS: BP 119/63; PULSE 114; RESP 20; O2SAT 98
[2022-03-28 14:17] LABS: Creatine Kinase 44 U/L (30-135)
[2022-03-28 14:18] LABS: Appearance Urine UA CLEAR; Bilirubin Urine UA NEGATIVE (NEGATIVE); Color Urine UA YELLOW; Glucose Urine UA NEGATIVE (Negative); Ketones Urine UA NEGATIVE (NEGATIVE); Leukocyte Esterase Urine UA TRACE (NEGATIVE); Nitrite Urine UA NEGATIVE (Negative); Occult Blood Urine UA NEGATIVE (Negative); Protein Urine UA NEGATIVE (Negative); Specific Gravity Urine UA <=1.005 (1.000-1.035); Urobilinogen Urine UA 0.2 E.U./dL (0.2); pH Urine UA 5.5 (4.5-8.0)
[2022-03-28 14:19] LABS: UR Morphine/Opiate cutoff 300 Negative (Negative); Ur Creatinine Normal (Normal); Ur Specific Gravity Normal (Normal); Urine Amphetamines Negative (Negative); Urine Barbiturates Negative (Negative); Urine Benzodiazepines Negative (Negative); Urine Cocaine Negative (Negative); Urine MDMA Negative (Negative); Urine Methadone Negative (Negative); Urine Methamphetamines Negative (Negative); Urine Oxycodone Negative (Negative); Urine Phencyclidine Negative (Negative); Urine Tetrahydrocannabinol Negative (Negative); Urine Tricyclic Antidepressant Positive (Negative); Urine pH Normal (Normal)
[2022-03-28 14:21] LABS: C-Reactive Protein Quant < 0.5 mg/dL (<1.0)
[2022-03-28 14:24] LABS: Bacteria Urine None Seen; Culture Indicated Urine Specimen Cultured; RBC Urine 0-1/HPF (0-5/HPF); WBC Urine 0-1/HPF (0-5/HPF)
[2022-03-28 14:30] VITALS: BP 140/65; PULSE 103; RESP 20; O2SAT 94
[2022-03-28 14:30] LABS: Troponin I < 0.012 ng/mL (0.01-0.034)
--- NOTE | 2022-03-28 14:47 | PC.NURSE ---
charted under wrong patient
--- NOTE | 2022-03-28 14:53 | PC.NURSE ---
returned from Ct , juice and cheese to patient
[2022-03-28 15:14] LABS: Influenza A - CEPHEID Flu A NEGATIVE (NEGATIVE); Influenza B - CEPHEID Flu B NEGATIVE (NEGATIVE); Respiratory Syncytial Virus Negative (Negative)
[2022-03-28 15:32] LABS: COVID-19 CEPHEID 4-PLEX PCR Negative (Negative)
[2022-03-28 16:00] VITALS: BP 129/50; PULSE 98; RESP 17; O2SAT 98
[2022-03-28] MEDS: cephALEXin 250 MG CAPSULE 500 MG PO (16:28)
[2022-03-28] MEDS: metroNIDAZOLE 500 MG TABLET PO (16:28)
--- NOTE | 2022-03-28 16:30 | PC.NURSE ---
dr. gomez aware of blood sugar.
[2022-03-28 17:08] VITALS: BP 105/51; PULSE 96; RESP 19; O2SAT 97
[2022-03-30 20:16] LABS: Albumin 3.9 g/dL (3.5-5.0); Albumin Globulin Ratio 1.2 (1.0-2.8); Globulin 3.2 g/dL (1.7-4.1); HEMOLYSIS 18 (0-50)
== END 2022-03-28 17:49 | disposition home or self-care (01) ==
PROVIDERS: Emergency Medicine; Emergency Provider Nurse Practitioner Critical Care Medicine; PCP Internal Medicine
DX: N76.0 Acute vaginitis (principal); N30.00 Acute cystitis without hematuria; D25.9 Leiomyoma of uterus, unspecified; R10.30 Lower abdominal pain, unspecified; Z79.899 Other long term (current) drug therapy; Z20.822 Contact with and (suspected) exposure to COVID-19
CPT/HCPCS: 0241U; 36415; 71260; 74177; 80053; 80305; 81001; 81003; 82550; 82962; 83690; 84484; 85025; 85610; 86140; 87086; 87210; 93005; 96374; 96375; 96376; 99284; C9113; J1170; Q9967

== ENCOUNTER → 2022-05-23 08:29 | Outpatient (CLI) | payer OTHER, SELFPAY ==
[2021-12-27 10:38] VITALS: BMI 40.2
--- NOTE | 2022-05-23 | DI.US.S_ITS ---
PROCEDURE: US THYROID INDICATIONS: THYROTOXICOSIS CRISIS. H/O MALIGNANT BREAST CANCER. CURRENT RADIATION TREATMENTS PER PATIENT. TECHNIQUE: Real-time scanning was performed of the thyroid gland, with image documentation. COMPARISON: [facility], CT, CT CHEST ABD PEL W CON, 03/28/2022, 14:46. FINDINGS: Right: Thyroid lobe measures 5.4 x 2.1 x 1.8 cm, and is heterogeneous in echotexture. Left: Thyroid lobe measures 5.9 x 2.3 x 2.0 cm, and is h heterogeneous in echotexture. Isthmus: 2.3 mm thick. Nodule number: 1 Location: Right inferior. Size: 0.9 x 0.9 x 0.8 cm. Composition: Solid Echogenicity: Hypoechoic Shape: wider than tall. Margins: Smooth Echogenic foci: Peripheral Total points: 7 ACR TI-RADS category: 5 IMPRESSION: Category 5 lesion with recommendation for annual follow-up for 5 years. ACR TI-RADS definitions and recommendations: TI-RADS 1 (benign): 0 points. FNA not needed. TI-RADS 2 (not suspicious): 2 points. FNA not needed. TI-RADS 3 (mildly suspicious): 3 points. * FNA if 2.5 cm or larger, follow up if 1.5 cm or larger (at 1, 3, and 5 years). TI-RADS 4 (moderately suspicious): 4-6 points. * FNA if 1.5 cm or larger, follow up if 1 cm or larger (at 1, 2, 3, and 5 years). TI-RADS 5 (highly suspicious): 7 points or more. * FNA if 1 cm or larger, follow up if 0.5 cm or larger (every year for 5 years). Dictated by: Veronica Powell M.D. on 05/23/2022 at 20:39 Approved by: Veronica Powell M.D. on 05/23/2022 at 20:41
== END ==
PROVIDERS: PCP Internal Medicine; Referring Provider Internal Medicine; Visit Provider Internal Medicine
DX: C50.919 Malignant neoplasm of unspecified site of unspecified female breast (principal); E05.90 Thyrotoxicosis, unspecified without thyrotoxic crisis or storm; E04.1 Nontoxic single thyroid nodule
CPT/HCPCS: 76536

== ENCOUNTER → 2022-07-24 12:13 | Outpatient (CLI) | payer OTHER, SELFPAY ==
[2021-12-27 10:38] VITALS: BMI 40.2
--- NOTE | 2022-07-24 12:22 | DI.MG.S_ITS ---
BILATERAL DIGITAL SCREENING MAMMOGRAM 3D/2D WITH CAD POST LUMPECTOMY: 07/24/2022 CLINICAL: Routine screening. Personal history of right breast cancer. Comparison is made to exams dated: 05/22/2021 breast MRI - [facility], 02/22/2021 mammogram, and 02/09/2020 mammogram - [facility]. There are scattered areas of fibroglandular density in both breasts (category b / 25%-50% glandular tissue). Current study was also evaluated with a Computer Aided Detection (CAD) system. There are new surgical clips, a few dystrophic calcifications, expected architectural distortion, and post surgical scar in the right breast in the upper outer quadrant. No significant masses, calcifications, or other findings are seen in either breast. Mammograms are otherwise stable. IMPRESSION: BENIGN Expected right breast post lumpectomy changes. There is no mammographic evidence of malignancy. Return to annual mammogram screening schedule is recommended. This exam was interpreted at Station ID: [id number]. NOTE: For mammograms, a report in lay terms will be sent to the patient. Approximately 15% of breast malignancies will not be visualized mammographically. In the management of a palpable breast mass, a negative mammogram must not discourage biopsy of a clinically suspicious lesion. Electronically Signed By: Nabila evans/:07/24/2022 16:46:15 Entry: - 07/25/2022 08:29:51 copy to: Slick Ramsey letter sent: Normal Exam ACR BI-RADS Category 2: Benign Finding(s) 3342F
--- NOTE | 2022-07-24 12:23 | DI.MRI.S_ITS ---
PROCEDURE: MR CERVICAL SPINE WO CON INDICATIONS: CERVICAL RADICULOPATHY TECHNIQUE: Noncontrast sagittal T1 spin echo and T2 fast spin echo, sagittal STIR, foraminal oblique sagittal T2 fast spin echo, and axial gradient echo or T2 fast spin echo through the cervical spine. COMPARISON: [facility], MR, MR CERVICAL SPINE WITHOUT CONTRAST, 08/28/2019, 13:19. FINDINGS: Image quality: Excellent. Alignment and Curvature: There is normal bony alignment. Bone Marrow: Marrow demonstrates normal overall signal. Spinal Cord: Visualized spinal cord has normal size and signal. No cerebellar tonsillar herniation. Paraspinous Soft Tissues: No paravertebral masses. Prevertebral soft tissues are normal in thickness. C2-C3: Mild disc bulge. No canal stenosis. Bilateral facet hypertrophy. Moderate right foraminal narrowing, increased since the previous study, with flattening deformity on the exiting right C3 nerve root. C3-C4: Disc bulge. No canal stenosis. Bilateral facet hypertrophy. Bilateral uncovertebral joint hypertrophy. Severe right foraminal narrowing with right foraminal C4 nerve root impingement, as before. C4-C5: Disc bulge. No canal stenosis. Bilateral uncovertebral joint hypertrophy and bilateral facet hypertrophy. Severe left foraminal narrowing as before, with left foraminal C5 nerve root impingement. C5-C6: No canal stenosis. Bilateral facet hypertrophy. Bilateral uncovertebral joint hypertrophy. Moderate left foraminal narrowing with flattening deformity on the exiting left C6 nerve root. C6-C7: Interval improvement. Diffuse disc bulge. Superimposed right paracentral disc protrusion has improved. There is mild central canal stenosis and moderate right lateral recess stenosis. Severe right foraminal narrowing with right foraminal C7 nerve root impingement. C7-T1: No canal stenosis or significant foraminal stenosis. IMPRESSION: 1. At the most significant level, C6-C7, findings have improved. A right paracentral disc protrusion has improved. There is mild central canal stenosis and moderate right lateral recess stenosis at this level. 2. No significant canal stenosis at other levels. 3. Significant multilevel foraminal narrowing as described above. Findings include severe right foraminal narrowing at C3-C4, severe left foraminal narrowing at C4-C5, and severe right foraminal narrowing at C6-C7. 4. Multilevel cervical facet arthropathy. Dictated by: Akshat Loja M.D. on 07/24/2022 at 16:08 Approved by: Akshat Loja M.D. on 07/24/2022 at 16:17
--- NOTE | 2022-07-24 12:47 | DI.DEXA.S_ITS ---
Bone Density Report Name: ISABELLA BERNARDO Age: 62 Sex: Female Ethnicity: White Date of : 1960 Indication: postmenopausal; screening for osteoporosis; prior fracture; Referring Provider: TANVI THOMPSON Study: Bone densitometry was performed. Exam Date: July 24, 2022 Accession number: [id number] Bone Density: Region BMD T-score Z-score Classification AP Spine(L1-L4) 1.004 -0.4 1.1 Normal Femoral Neck (Left) 0.787 -0.6 0.8 Normal Total Hip (Left) 1.013 0.6 1.6 Normal Femoral Neck (Right) 0.911 0.6 1.9 Normal Total Hip (Right) 1.039 0.8 1.8 Normal Total Hip Mean 1.026 0.7 1.7 Normal World Health Organization criteria for BMD impression classify patients as: Normal (T-score at or above -1.0), Osteopenia (T-score between -1.0 and -2.5), or Osteoporosis (T-score at or below -2.5). 10-year Fracture Risk: FRAX not reported because: All T-scores for Spine Total, Hip Total, Femoral Neck at or above -1.0 Prior hip or vertebral fracture Previous Exams: -- Region Exam Age BMD T-score BMD Change BMD Change Date g/cm2 vs Baseline vs Previous -- AP Spine (L1-L4) 07/24/2022 62 1.004 -0.4 -0.100 (-9.1%)# -0.100 (-9.1%)# 03/31/2019 59 1.104 0.5 Total Hip(Left) 07/24/2022 62 1.013 0.6 -0.091 (-8.3%)# -0.091 (-8.3%)# 03/31/2019 59 1.105 1.3 Total Hip(Right) 07/24/2022 62 1.039 0.8 -0.050 (-4.5%)# -0.050 (-4.5%)# 03/31/2019 59 1.089 1.2 -- *Denotes significance at 95% confidence level, LSC for AP Spine = 0.022 g/cm2, LSC for Total Hip = 0.027 g/cm2 # Denotes dissimilar scan types or analysis methods Impression: The patient has normal bone mass. The patient has risk factors, including: previous fracture. No significant bone loss was observed. Discussion: INCREASED RISK OF FRACTURE DUE TO HISTORY OF FRACTURE. The patient's previous fracture puts the patient at high risk of a future fracture. In untreated patients, the risk of osteoporotic fracture increases approximately two-fold for each 1.0 SD decrease in T-score. Low bone density is not the only risk factor for fracture; also consider factors such as patient's age, frailty or poor health, risk of falling, risk of injury, previous osteoporotic fracture, family history of osteoporosis, cigarette smoking, low body weight, etc. Not everyone with a low trauma fracture has osteoporosis; osteomalacia and other metabolic bone disorders should also be considered. Patients who have osteoporosis should be evaluated for specific diseases and conditions (secondary causes) that may cause or contribute to bone loss and fracture risk. National Osteoporosis Foundation (NOF) recommends pharmacologic intervention for patients with a prior hip or vertebral fracture regardless of BMD T-score. The patient should follow a healthful lifestyle (good nutrition with adequate calcium and vitamin D, and appropriate weight-bearing exercise). Follow-Up: Consider a repeat BMD and Vertebral Fracture Assessment (VFA) exam in 2 years or sooner if medically necessary, to reassess this patient's status. Reported by: CUBA HANSON M.D. on 07/24/2022 12:58:00 PM.
== END ==
PROVIDERS: PCP Internal Medicine; Referring Provider Internal Medicine Medical Oncology; Visit Provider Internal Medicine
DX: C50.911 Malignant neoplasm of unspecified site of right female breast (principal); Z12.31 Encounter for screening mammogram for malignant neoplasm of breast; M47.22 Other spondylosis with radiculopathy, cervical region; M48.02 Spinal stenosis, cervical region; M50.123 Cervical disc disorder at C6-C7 level with radiculopathy; G44.86 Cervicogenic headache; Z79.811 Long term (current) use of aromatase inhibitors; Z13.820 Encounter for screening for osteoporosis; Z78.0 Asymptomatic menopausal state
CPT/HCPCS: 72141; 77063; 77067; 77080

== ENCOUNTER → 2022-11-13 08:08 | Outpatient (CLI) | payer OTHER, SELFPAY ==
[2021-12-27 10:38] VITALS: BMI 40.2
--- NOTE | 2022-11-13 | DI.RAD.S_ITS ---
PROCEDURE: XR KNEE LT 3V INDICATIONS: left knee pain post fall TECHNIQUE: 3 views of the knee were acquired. COMPARISON: [facility], , XR KNEE LT 1TO2V, 12/10/2018, 13:29. FINDINGS: Bones: No fractures or dislocations. No suspicious bony lesions. Knee arthroplasty is present. Hardware is intact without hardware fracture or periprosthetic lucency to suggest loosening. Alignment is stable. Soft tissues: No joint effusion. No suspicious soft tissue calcifications. IMPRESSION: No visualized acute fracture or dislocation. However, if clinical concern and/or pain persist, short interval imaging followup in 7-10 days is recommended, as occult injury cannot be definitively excluded. Dictated by: Veronica Powell M.D. on 11/13/2022 at 10:41 Approved by: Veronica Powell M.D. on 11/13/2022 at 10:42
== END ==
PROVIDERS: PCP Internal Medicine; Referring Provider Internal Medicine; Visit Provider Internal Medicine
DX: M25.562 Pain in left knee (principal); Z96.652 Presence of left artificial knee joint
CPT/HCPCS: 73562

== ENCOUNTER 2024-03-08 12:56 | Emergency (ER) | payer OTHER, SELFPAY ==
[2021-12-27 10:38] VITALS: BMI 40.2
[2024-03-08 13:08] VITALS: BP 127/84; PULSE 108; RESP 16; TEMP 36.1; O2SAT 98; BMI 38.7
--- NOTE | 2024-03-08 13:16 | PC.NURSE ---
Patient monitor reading 216.
--- NOTE | 2024-03-08 14:18 | ED_ITS ---
HPI - Recheck/Abnormal Lab/Rx <Mary Elias PA-C - Last Filed: 03/08/24 15:52> General Chief Complaint: Recheck/Abnormal Lab/Rx Stated Complaint: Needs her sugar checked Time Seen by Provider: 03/08/24 14:18 Source: patient Mode of arrival: Ambulatory History of Present Illness HPI narrative: 64-year-old female insulin-dependent type 2 diabetic presents with concerns for her continuous glucose monitor. She states she has had sugars in the 500s after eating a simple protein without any additional sugars or carbohydrate. She also reports sugars in the high 100s or 200s. She is denying any lightheadedness, dizziness, she is able to adjust her insulin as needed as she has sliding scale NovoLog and has also adjusted her Lantus. She also takes Bydureon. She reports no fever, recent illness although endorses some right ear fullness as if there is water behind the ear. She reports no vertiginous symptoms, no other upper respiratory infection symptoms such as runny nose, cough, left-sided ear pain, occasionally this fullness progresses to a mild headache. She reports no teeth pain, no recent travel, history is also significant for asthma but she reports no need for additional rescue inhaler. Lastly she underwent partial right mastectomy June 05, 2021 and completed a course of radiation in 2022, she is now on anastrozole 1 mg daily for the next 10 years. She is followed closely by Dr. Ramsey and now Dr. Aguilera. Her internal Medicine is Dr. Violeta Roman here in [facility]. No other changes in her overall health. All other systems reviewed and are negative. Related Data Home Medications Medication Instructions Recorded Confirmed benazepril 20 mg tablet 10 mg PO QDAY ##0 11/21/11 06/27/22 epinephrine 0.3 mg/0.3 mL 0.3 mg IM PRN PRN Allergies ##0 11/21/11 06/27/22 injection, auto-injector glucagon (human recombinant) 1 mg 1 mg IJ PRN PRN Hypoglycemia ##0 11/21/11 06/27/22 injection kit (Glucagon Emergency Kit (human-recomb)) pantoprazole 40 mg tablet,delayed 40 mg PO BID ##0 09/19/16 06/27/22 release albuterol sulfate 90 mcg/actuation 2 puff inhalation Q4H PRN Asthma 01/29/18 04/17/22 aerosol inhaler (Ventolin HFA) metformin 1,000 mg tablet 1,000 mg PO BID 01/29/18 06/27/22 multivitamin 1 cap PO DAILY ##0 01/29/18 06/27/22 exenatide microspheres 2 mg/0.65 2 mg SUBCUT Q7D 07/17/18 04/17/22 mL subcutaneous pen injector (Bydureon) potassium chloride 20 mEq 20 meq PO DAILY 11/26/18 06/27/22 tablet,extended release duloxetine 60 mg capsule,delayed 120 mg PO DAILY 11/26/19 06/27/22 release fluocinolone 0.01 % topical body 1 applic topical TID 05/02/21 06/27/22 oil lamotrigine 100 mg tablet 100 mg PO DAILY 05/02/21 06/27/22 calcium 600 mg capsule 600 mg PO DAILY 07/19/21 04/17/22 cholecalciferol (vitamin D3) 10 400 unit DAILY 07/19/21 04/17/22 mcg (400 unit) capsule (Vitamin D3) acetaminophen 325 mg tablet 325 mg DAILY 10/10/21 04/17/22 (Tylenol) aspirin 81 mg tablet,delayed 81 mg PO DAILY 10/10/21 04/17/22 release doxepin 10 mg capsule 30 mg PO BEDTIME 10/10/21 06/27/22 ferrous sulfate 325 mg (65 mg 325 mg PO DAILY 10/10/21 06/27/22 iron) tablet zolpidem 5 mg tablet 5 mg PO BEDTIME PRN Insomnia 10/10/21 06/27/22 gabapentin 300 mg capsule 600 mg PO SEEINSTR ##0 04/17/22 06/27/22 (Neurontin) insulin glargine 100 unit/mL (3 50 unit SUBCUT .hs 04/17/22 06/27/22 mL) subcutaneous pen (Lantus Solostar U-100 Insulin) furosemide 40 mg tablet (Lasix) 40 mg PO BID 06/27/22 06/27/22 metoprolol tartrate 100 mg tablet 100 mg PO DAILY 06/27/22 06/27/22 Previous Rx's Medication Instructions Recorded anastrozole 1 mg tablet 1 mg PO DAILY #90 tabs 10/10/21 metronidazole 0.75 % topical gel 1 applic topical BEDTIME PRN 01/18/23 pelvic pain #45 grams anastrozole 1 mg tablet 1 mg PO DAILY #90 tabs 10/11/22 Allergies Allergy/AdvReac Type Severity Reaction Status Date / Time bee venom protein (honey bee) Allergy Severe anaphylaxis Verified 03/08/24 13:11 [BEE VENOM PROTEIN (HONEY BEE)] chocolate flavor Allergy Severe anaphylaxis Verified 03/08/24 13:11 [CHOCOLATE FLAVOR] meclizine [MECLIZINE] Allergy Severe anaphylaxis Verified 03/08/24 13:11 pseudoephedrine Allergy Severe anaphylacti Verified 03/08/24 13:11 [From ACTIFED] c triprolidine [From ACTIFED] Allergy Severe anaphylacti Verified 03/08/24 13:11 c nickel Allergy Intermediate Rash, skin Verified 03/08/24 13:11 turns green povidone-iodine Allergy Mild rash Verified 03/08/24 13:11 [POVIDONE-IODINE] celecoxib [From Celebrex] AdvReac Severe Shuts my Verified 03/08/24 13:11 kidney down Review of Systems <Mary Elias PA-C - Last Filed: 03/08/24 15:52> Review of Systems Narrative: All other systems reviewed and are negative. Patient History <Mary Elias PA-C - Last Filed: 03/08/24 15:52> Medical History History of kidney stones Pelvic floor weakness Incontinence in female History of urinary tract infection Incomplete emptying of bladder Long QT interval Multiple gastric polyps Seizures Peptic ulcer disease Elevated LFTs Hearing impaired Chest pain Kidney stones (~08/2014) Chronic venous stasis HARRIS (nonalcoholic steatohepatitis) Long QT syndrome (~2018) Macular degeneration Renal insufficiency History of migraine History of UTI 2nd degree AV block Fibromyalgia Peripheral neuropathy Anxiety Diverticulosis GERD (gastroesophageal reflux disease) Knee pain, right Arthritis Sleep apnea with use of continuous positive airway pressure (CPAP) Asthma Edema Hyperlipidemia Hypertension Cholecystitis Obese Cholelithiasis Epigastric pain Blindness and low vision Optic neuritis Migraines Type 2 diabetes mellitus PTSD (post-traumatic stress disorder) Depression Surgical History History of carpal tunnel surgery of right wrist (02/24/20) Hx of shoulder surgery History of total left knee replacement History of arthroplasty of right shoulder (11/30/19) History of arthroplasty of left knee (12/10/18) S/P right unicompartmental knee replacement (07/23/18) History of liver biopsy (02/12/18) S/P rotator cuff repair Hx of cholecystectomy (02/12/18) Hx of tonsillectomy Hx of arthroscopic knee surgery History of colonoscopy Family History Other Adopted Social History household members: children occupational status: previously employed Smoking Status: Never smoker alcohol intake: never substance use type: does not use Smoking Status: Never smoker Exam <Mary Elias PA-C - Last Filed: 03/08/24 15:52> Initial Vital Signs Initial Vital Signs: Vital Signs Temperature 96.9 F L 03/08/24 13:08 Pulse Rate 108 H 03/08/24 13:08 Respiratory Rate 16 03/08/24 13:08 Blood Pressure 127/84 03/08/24 13:08 Pulse Oximetry 98 03/08/24 13:08 Oxygen Delivery Method Room Air 03/08/24 13:08 Vital signs reviewed and are normal recheck of her heart rate is 98 per minute. Fingerstick blood glucose was 199 compared to her glucose monitor which was reading to 16 at the time. Const General: cooperative and comfortable [facility] Head: normal to inspection, normocephalic and atraumatic Ears: hearing grossly normal bilaterally, external ears normal, TM's normal bilaterally, EAC's normal, mastoids normal, no periauricular adenopathy and TM abnormal (Increased vasculature of TM R>L ) dull and with fluid behind the TM (Minimal, opacities bilaterally) on the right; not bulging, not bullous and not erythematous Nose: external nose normal, nares normal and nasal mucous membranes and turbinates normal Face and sinus: normal facial exam, face symmetric and sinus tenderness (Mild right frontal tenderness without guarding) Mouth: oral mucosae normal, lip normal, tongue normal and oropharynx normal Teeth and gingiva: gingiva normal Throat: posterior oropharynx normal, tonsils normal, uvula midline and postnasal drainage Eyes General: Yes appearance normal, both eyes and all related structures Neck Neck: normal visual inspection, full ROM, no meningeal signs and supple Lymphatic: No lymphadenopathy Other: No adenopathy but mildly tender in the anterior cervical. No mass. Resp Effort & Inspection: normal respiratory effort and able to speak in complete sentences Auscultation: clear to auscultation bilaterally, no rales, no rhonchi and no wheezes Other: No cough with deep inspiration. Cardio Rate: regular rate Rhythm: regular rhythm GI Inspection: normal to inspection Palpation: soft and no hepatosplenomegaly Auscultation: normal bowel sounds Skin General: elasticity normal Other: Eczematous rash external auditory canals right greater than left, no bleeding points. No pustules papules, mild swelling on the right side compared to the left. <Kristyn Cain DO - Last Filed: 03/09/24 09:24> Initial Vital Signs Initial Vital Signs: Vital Signs Temperature 96.9 F L 03/08/24 13:08 Pulse Rate 108 H 03/08/24 13:08 Respiratory Rate 16 03/08/24 13:08 Blood Pressure 127/84 03/08/24 13:08 Pulse Oximetry 98 03/08/24 13:08 Oxygen Delivery Method Room Air 03/08/24 13:08 Course <Mary Elias PA-C - Last Filed: 03/08/24 15:52> Vital Signs Vital signs: Vital Signs - 8 hr 03/08/24 13:08 03/08/24 15:07 03/08/24 15:21 Temperature 96.9 F L Pulse Rate 108 H 95 H 97 H Respiratory Rate 16 16 16 Blood Pressure 127/84 143/73 H 142/73 H Pulse Oximetry 98 97 95 Oxygen Delivery Method Room Air Room Air Room Air <DO Danilo Quijano Last Filed: 03/09/24 09:24> Vital Signs Vital signs: Vital Signs - 8 hr 03/08/24 13:08 03/08/24 15:07 03/08/24 15:21 Temperature 96.9 F L Pulse Rate 108 H 95 H 97 H Respiratory Rate 16 16 16 Blood Pressure 127/84 143/73 H 142/73 H Pulse Oximetry 98 97 95 Oxygen Delivery Method Room Air Room Air Room Air MDM - Recheck/Abnormal Lab/Rx <Mary Elias PA-C - Last Filed: 03/08/24 15:52> Lab Data Labs: Point of Care Testing Glucose POC 199 MDM Narrative Medical decision making narrative: No clinical findings on examination to suggest an acute bacterial infection, she has been afebrile, she has some mild congestion behind the right ear and a little frontal sinus tenderness but no full-blown sinusitis. No teeth pain. I have asked her to try some supportive measures such as saline nasal spray, hu midified air, steam therapy. Monitor for any worsening signs. I did recommend the walk-in clinic and I will be there March 10 from 4p for continuity sake, if you have any questions, or need re-evaluation, please stop by. Otherwise please schedule a follow up with Dr. Violeta Roman and update your healthcare maintenance and lab work. You may need some adjustments to your medication for better control of your diabetes. Red flag warning signs are reviewed in detail. Do not hesitate to return to the emergency department if anything changes or you develop any new worrisome symptoms. <Kristyn Cain, - Last Filed: 03/09/24 09:24> Lab Data Labs: Point of Care Testing Glucose POC 199 Discharge Plan Departure Patient Disposition: Home Clinical Impression: Diabetes mellitus Qualifiers: Diabetes mellitus type: type 2 Diabetes mellitus intermediate insulin use: with extermination supervisor use Diabetes mellitus complication status: with other specified complication Qualified Code(s): E11.69 - Type 2 diabetes mellitus with other specified complication Instructions: DI for Diabetes Type 2 Activity Restrictions/Additional Instructions: Please do contact Dr. Roman and follow-up regarding your diabetes, you may need an adjustment to her medications, it is possible that your brewing an early infection and this is an inflammatory response such as sinusitis. I recommend a trial of saline nasal spray, humidified air or steam therapy. Your eczema around your ears appears to be well controlled make sure to lubricate. No signs of any infection here. I will be in the walk-in Clinic this Saturday03/10/24 from 10-12 if you have any questions or need to be re-evaluated. It was nice to meet you and I hope you have a wonderful new year. Please do update your annual health care maintenance, labwork, etc. Prescriptions: No Action benazepril 20 MG tablet 10 mg PO QDAY Qty: 0 epinephrine 0.3 MG/0.3 ML auto-injector 0.3 mg IM PRN PRN (Reason: Allergies) Qty: 0 Glucagon Emergency Kit (human) 1 MG kit 1 mg IJ PRN PRN (Reason: Hypoglycemia) Qty: 0 pantoprazole 40 MG tablet,delayed release (DR/EC) 40 mg PO BID Qty: 0 gabapentin [Neurontin] 300 mg capsule 600 mg PO SEEINSTR Qty: 0 Rx Instructions: 600mg mid- day, 900mg bid metformin 1,000 mg Tablet 1,000 mg PO BID albuterol sulfate [Ventolin HFA] 90 mcg/actuation Hfa Aerosol Inhaler 2 puff INHALATION Q4H PRN (Reason: Asthma) multivitamin Capsule 1 cap PO DAILY Qty: 0 Bydureon 2 mg/0.65 mL Pen Injector 2 mg SUBCUT Q7D Rx Instructions: Every Saturday duloxetine 60 mg Capsule,Delayed Release(Dr/Ec) 120 mg PO DAILY fluocinolone 0.01 % Oil 1 applic TOPICAL TID lamotrigine 100 mg Tablet 100 mg PO DAILY calcium 600 mg Capsule 600 mg PO DAILY cholecalciferol (vitamin D3) [Vitamin D3] 10 mcg (400 unit) Capsule 400 unit DAILY acetaminophen [Tylenol] 325 mg Tablet 325 mg DAILY doxepin 10 mg Capsule 30 mg PO BEDTIME ferrous sulfate 325 mg (65 mg iron) Tablet 325 mg PO DAILY zolpidem 5 mg Tablet 5 mg PO BEDTIME PRN (Reason: Insomnia) aspirin 81 mg tablet,delayed release (DR/EC) 81 mg PO DAILY anastrozole 1 mg Tablet 1 mg PO DAILY Qty: 90 3RF furosemide [Lasix] 40 mg Tablet 40 mg PO BID metoprolol tartrate 100 mg Tablet 100 mg PO DAILY anastrozole 1 mg Tablet 1 mg PO DAILY Qty: 90 3RF Rx Instructions: Take 1 tablet by mouth daily. metronidazole 0.75 % gel 1 applic topical BEDTIME PRN (Reason: pelvic pain) Qty: 45 0RF potassium chloride 20 mEq Tablet Extended Release 20 meq PO DAILY insulin glargine [Lantus Solostar U-100 Insulin] 100 unit/mL (3 mL) insulin pen 50 unit SUBCUT .hs Referrals: Violeta Roman MD [Primary Care Provider] - Stand Alone Forms: Patient Portal/API/Survey ED Sign-out <Kristyn Cain DO - Last Filed: 03/09/24 09:24> Cosign ED Attending Cosignature Attestation: I was available for consultation.
[2024-03-08 15:07] VITALS: BP 143/73; PULSE 95; RESP 16; O2SAT 97
[2024-03-08 15:21] VITALS: BP 142/73; PULSE 97; RESP 16; O2SAT 95
== END 2024-03-08 15:21 | disposition home or self-care (01) ==
PROVIDERS: Emergency Provider Physician Assistant Medical; PCP Internal Medicine
DX: E11.65 Type 2 diabetes mellitus with hyperglycemia (principal); R51.9 Headache, unspecified
CPT/HCPCS: 82962; 99282

== ENCOUNTER → 2025-01-14 13:30 | Outpatient (CLI) | payer OTHER, SELFPAY ==
[2021-12-27 10:38] VITALS: BMI 40.2
== END ==
LOC: ECHO 13:32
PROVIDERS: PCP Internal Medicine; Referring Provider Internal Medicine; Visit Provider Internal Medicine
DX: R06.09 Other forms of dyspnea (principal)
CPT/HCPCS: C8929; Q9957